=== PATIENT | male | born 1960 | race Caucasian/White ===

== ENCOUNTER → 2016-09-06 | Outpatient (CLI) | payer BC ==
[~2016-09-06] MED LIST: CLR5
--- NOTE | 2016-09-06 10:14 | DIAGNOSTIC IMAGING REPORT ---
RIGHT WRIST 4 VIEWS CLINICAL HISTORY: Right wrist pain. FINDINGS: 4 views of the right wrist are obtained. No prior studies are available for comparison at the time of dictation. The skeletal structures are well mineralized. No fracture is identified. A small bone island is incidentally noted in distal radial metaphysis. Minimal narrowing is present at the radiocarpal articulation. The overlying soft tissues are normal in appearance. IMPRESSION: No acute bony abnormality is seen in the right wrist. Electronically signed by: Carl Atwood M.D. 09/06/2016 10:12 AM Dictated Date/Time: 09/06/2016 10:10 AM
== END | disposition home or self-care (01) ==
LOC: C.RAD1850 09:59
PROVIDERS: ATTEND Family Medicine
DX: M25.539 Pain in unspecified wrist (principal)

== ENCOUNTER → 2017-06-11 | Outpatient (CLI) | payer BC ==
--- NOTE | 2017-06-11 16:07 | DIAGNOSTIC IMAGING REPORT ---
TEMPORAL ORB/SELLA/TEMP W/O CLINICAL HISTORY: UNSPECIFIED CHOLESTEATOMA LEFT EAR, CONDUCT HEAR hearing loss. Prior cholesteatoma. TECHNIQUE: Transaxial acquisition with multi axial reformatted images COMPARISON STUDY: 07/13/2013 FINDINGS: The right middle ear and associated right temporal lobe complex remains unremarkable. The skin is intact. The middle ear ossicles are unremarkable. There is no evidence for bony destructive process. The right mastoid air cells are well aerated. Postoperative changes involving the left middle and left external auditory canals and middle ear compartments are again noted. The ossicles and tympanic membrane/scutum complex appears to have been removed. There is been no change compared to the prior study. Sclerosis of the mastoid air cells is noted. Small residual component of aerated air cells is present posteriorly. There are no new interval or destructive changes. The semicircular canals appear to be intact although again surrounding sclerosis is present. There are moderate degenerative changes of the temporomandibular joints. IMPRESSION: 1. Stable postoperative and sclerotic changes of the left middle and external ear complex as well as left mastoid complex. 2. No evidence for new or interval process on the left. 3. The right middle ear complex and associated temporal bone regions remain unremarkable. 4. No evidence for new interval or progressive process. The above report was generated using voice recognition software. It may contain grammatical, syntax or spelling errors. Electronically signed by: Zach Cabezas M.D. 06/11/2017 4:05 PM Dictated Date/Time: 06/11/2017 4:00 PM
== END | disposition home or self-care (01) ==
LOC: C.CTS 15:42
PROVIDERS: ATTEND Otolaryngology
DX: H90.12 Conductive hearing loss, unilateral, left ear, with unrestricted hearing on the contralateral side (principal); H71.92 Unspecified cholesteatoma, left ear

== ENCOUNTER 2023-02-25 09:36 | Inpatient (IN) ==
[2023-02-25] MEDS ORDERED: ONDANSETRON INJ 2 MG/ML 2 ML VIAL IV STA ×3 (10:00→15:01)
[2023-02-25] MEDS ORDERED: SODIUM CHLORIDE 0.9% 1000ML 1,000 ML IV STA (10:00)
--- NOTE | 2023-02-25 10:09 | Emergency Department Note ---
History of Present Illness General Chief complaint: Illness Stated complaint: NAUSEOUS, SOB Time Seen by Provider: 02/25/23 09:48 Source: patient, family ( was at the bedside), RN notes reviewed and old records reviewed Mode of arrival: ambulatory Limitations: no limitations History of Present Illness This patient is a 62-year-old male who comes in after not feeling well overnight he was he woke up around 330 with head shake he just felt cold and chills he had to black stools that were somewhat hard. He thought he could be dehydrated so he drank a lot of fluids he said that he does have a difficult time eating certain foods as he has had hiatal hernia surgery x2. Saturday he had a bad diet he was not feeling well and took some Pepto and aspirin as well as NSAID. He had no chest pain but felt a little short of breath and clammy no fever he feels better than he did he has just a slight headache. He feels a little bit dizzy and nauseated. His abdomen feels distended but none tender. Home Medications Medication Instructions Recorded Confirmed Type fluticasone propionate 50 2 spray intranasal QAM 06/04/18 02/25/23 History mcg/actuation nasal spray,suspension (Flonase Allergy Relief) loratadine 10 mg capsule 10 mg PO QAM 03/31/19 02/25/23 History ipratropium 0.5 mg-albuterol 3 mg 3 ml inhalation QID PRN Shortness 12/17/1906/10 Rx (2.5 mg base)/3 mL nebulization Of Breath Or Wheezing 90 days #360 soln vials pyridoxine (vitamin B6) 500 mg 0 mg PO HS 01/22/22 02/25/23 History tablet albuterol sulfate 90 mcg/actuation 2 puff inhalation QID PRN Wheezing 02/20/22 02/25/23 Rx aerosol inhaler #18 grams valacyclovir 1 gram tablet 2 mg PO DIRECTED PRN Cold Sores 04/08/22 02/25/23 History epinephrine 0.3 mg/0.3 mL 0.3 mg (0.3 mL) IM Q4H PRN 05/14/22 02/25/23 Rx injection, auto-injector anaphylaxis #2 ea montelukast 10 mg tablet See Rx Instructions .Route 06/11/22 02/25/23 Rx .COMPLEX #90 tabs fluticasone furoate 200 1 inh inhalation QAM #3 Inhalers 08/27/22 02/25/23 Rx mcg-vilanterol 25 mcg/dose inhalation powder (Breo Ellipta) omalizumab 150 mg/mL subcutaneous 150 mg subcut .COMPLEX #1 mL 09/03/22 02/25/23 Rx syringe (Xolair) losartan 50 mg tablet 50 mg PO DAILY #90 tabs 12/31/22 02/25/23 Rx hydrocortisone 2.5 % topical cream 1 applic topical DAILY PRN hemmroid 02/25/23 02/25/23 History vitamin E 268 mg (400 unit) capsule 268 mg PO DAILY 02/25/23 02/25/23 History Allergies Allergy/AdvReac Type Severity Reaction Status Date / Time erythromycin base Allergy Unknown Gastrointestinal Verified 12/24/22 13:43 Upset amoxicillin [From Augmentin] AdvReac Gastrointestinal Unverified 12/24/22 13:43 Upset clavulanic acid AdvReac Gastrointestinal Unverified 12/24/22 13:43 [From Augmentin] Upset Past Med/Surg History Medical History Asthma Chest tightness COVID-19 Injury of right elbow Nonproductive cough Wheezing Surgical History History of appendectomy History of hernia repair History of mastoidectomy History of tonsillectomy Family History Father Stroke Hypertension Lung cancer Mother Allergies Hypertension Hearing loss Social History Smoking Status: Never smoker Preferred Language: Tajik Beliefs That Will Affect Care: Spiritual marital status: Current Living Situation: Spouse Feels Safe at Home: Yes Review of Systems A total of 10 systems reviewed and were otherwise negative Physical Exam Vital Signs Vital Signs - 24 hr 02/25/23 09:39 02/25/23 10:00 02/25/23 10:17 Temperature 36.8 C Temperature Source Temporal Artery Scan Pulse Rate 98 H 80 73 Pulse Rate [Apical] Pulse Rate from SpO2 Sensor Pulse Rhythm Regular Pulse Rhythm [Apical] Pulse Strength Pulse Strength [Apical] Respiratory Rate 22 Respiratory Effort / Characteristics Short of Breath Respiratory Depth Respiratory Pattern Blood Pressure 117/71 Blood Pressure [Right Arm] Blood Pressure Mean 86 Blood Pressure Mean [Right Arm] Blood Pressure Position Blood Pressure Position [Right Arm] Pulse Oximetry 93 100 Oxygen Delivery Method Room Air Room Air Sepsis Recent Fever Within 48 Hours No Sepsis New/Unexplained Change in Mental Status No Sepsis Action Taken by Nursing No Action Required 02/25/23 14:28 02/25/23 11:48 02/25/23 13:00 Temperature 36.4 C L Temperature Source Oral Pulse Rate 72 Pulse Rate [Apical] 87 82 Pulse Rate from SpO2 Sensor Pulse Rhythm Regular Pulse Rhythm [Apical] Regular Regular Pulse Strength Normal Pulse Strength [Apical] Normal Normal Respiratory Rate 11 L 16 15 Respiratory Effort / Characteristics Non-Labored Spontaneous Non-Labored Spontaneous Respiratory Depth Normal Normal Respiratory Pattern Regular Regular Blood Pressure 86/60 L Blood Pressure [Right Arm] 113/81 104/77 Blood Pressure Mean 68 Blood Pressure Mean [Right Arm] 91 86 Blood Pressure Position Lying Blood Pressure Position [Right Arm] Lying Lying Pulse Oximetry 94 98 99 Oxygen Delivery Method Room Air Room Air Sepsis Recent Fever Within 48 Hours Sepsis New/Unexplained Change in Mental Status Sepsis Action Taken by Nursing 02/25/23 13:51 02/25/23 14:49 02/25/23 14:56 Temperature 36.7 C Temperature Source Oral Pulse Rate 92 H 72 75 Pulse Rate [Apical] Pulse Rate from SpO2 Sensor Pulse Rhythm Regular Pulse Rhythm [Apical] Pulse Strength Normal Pulse Strength [Apical] Respiratory Rate 16 13 18 Respiratory Effort / Characteristics Respiratory Depth Respiratory Pattern Blood Pressure 97/70 L 89/54 L 89/57 L Blood Pressure [Right Arm] Blood Pressure Mean 65 67 Blood Pressure Mean [Right Arm] Blood Pressure Position Lying Blood Pressure Position [Right Arm] Pulse Oximetry 96 96 96 Oxygen Delivery Method Room Air Sepsis Recent Fever Within 48 Hours Sepsis New/Unexplained Change in Mental Status Sepsis Action Taken by Nursing 02/25/23 15:04 02/25/23 15:11 02/25/23 14:07 Temperature 36.6 C Temperature Source Oral Pulse Rate 77 80 77 Pulse Rate [Apical] Pulse Rate from SpO2 Sensor 78 Pulse Rhythm Regular Regular Pulse Rhythm [Apical] Pulse Strength Normal Normal Pulse Strength [Apical] Respiratory Rate 16 22 29 H Respiratory Effort / Characteristics Respiratory Depth Respiratory Pattern Blood Pressure 98/59 L 104/54 L 125/72 Blood Pressure [Right Arm] Blood Pressure Mean 72 70 89 Blood Pressure Mean [Right Arm] Blood Pressure Position Lying Blood Pressure Position [Right Arm] Pulse Oximetry 96 93 96 Oxygen Delivery Method Sepsis Recent Fever Within 48 Hours Sepsis New/Unexplained Change in Mental Status Sepsis Action Taken by Nursing 02/25/23 14:13 02/25/23 14:15 02/25/23 14:16 Temperature Temperature Source Pulse Rate 78 77 79 Pulse Rate [Apical] Pulse Rate from SpO2 Sensor 79 77 80 Pulse Rhythm Pulse Rhythm [Apical] Pulse Strength Pulse Strength [Apical] Respiratory Rate 21 18 13 Respiratory Effort / Characteristics Respiratory Depth Respiratory Pattern Blood Pressure 107/71 87/68 L 107/68 Blood Pressure [Right Arm] Blood Pressure Mean 83 74 81 Blood Pressure Mean [Right Arm] Blood Pressure Position Blood Pressure Position [Right Arm] Pulse Oximetry 97 100 96 Oxygen Delivery Method Sepsis Recent Fever Within 48 Hours Sepsis New/Unexplained Change in Mental Status Sepsis Action Taken by Nursing 02/25/23 14:20 02/25/23 14:25 02/25/23 14:26 Temperature Temperature Source Pulse Rate 76 69 70 Pulse Rate [Apical] Pulse Rate from SpO2 Sensor 77 69 69 Pulse Rhythm Pulse Rhythm [Apical] Pulse Strength Pulse Strength [Apical] Respiratory Rate 20 18 12 Respiratory Effort / Characteristics Respiratory Depth Respiratory Pattern Blood Pressure 92/59 L 91/61 L Blood Pressure [Right Arm] Blood Pressure Mean 70 71 Blood Pressure Mean [Right Arm] Blood Pressure Position Blood Pressure Position [Right Arm] Pulse Oximetry 98 97 97 Oxygen Delivery Method Sepsis Recent Fever Within 48 Hours Sepsis New/Unexplained Change in Mental Status Sepsis Action Taken by Nursing 02/25/23 14:27 02/25/23 14:30 02/25/23 14:39 Temperature Temperature Source Pulse Rate 68 74 71 Pulse Rate [Apical] Pulse Rate from SpO2 Sensor 69 73 71 Pulse Rhythm Pulse Rhythm [Apical] Pulse Strength Pulse Strength [Apical] Respiratory Rate 7 L 25 H 20 Respiratory Effort / Characteristics Respiratory Depth Respiratory Pattern Blood Pressure 86/60 L 87/60 L 106/66 Blood Pressure [Right Arm] Blood Pressure Mean 68 69 79 Blood Pressure Mean [Right Arm] Blood Pressure Position Blood Pressure Position [Right Arm] Pulse Oximetry 96 92 100 Oxygen Delivery Method Sepsis Recent Fever Within 48 Hours Sepsis New/Unexplained Change in Mental Status Sepsis Action Taken by Nursing 02/25/23 14:40 02/25/23 14:45 02/25/23 14:49 Temperature Temperature Source Pulse Rate 74 70 75 Pulse Rate [Apical] Pulse Rate from SpO2 Sensor 75 69 74 Pulse Rhythm Pulse Rhythm [Apical] Pulse Strength Pulse Strength [Apical] Respiratory Rate 20 17 19 Respiratory Effort / Characteristics Respiratory Depth Respiratory Pattern Blood Pressure 86/62 L 96/57 L 99/58 L Blood Pressure [Right Arm] Blood Pressure Mean 70 70 71 Blood Pressure Mean [Right Arm] Blood Pressure Position Blood Pressure Position [Right Arm] Pulse Oximetry 99 98 100 Oxygen Delivery Method Sepsis Recent Fever Within 48 Hours Sepsis New/Unexplained Change in Mental Status Sepsis Action Taken by Nursing 02/25/23 14:50 02/25/23 14:55 02/25/23 15:00 Temperature Temperature Source Pulse Rate 76 74 72 Pulse Rate [Apical] Pulse Rate from SpO2 Sensor 76 75 73 Pulse Rhythm Pulse Rhythm [Apical] Pulse Strength Pulse Strength [Apical] Respiratory Rate 13 19 22 Respiratory Effort / Characteristics Respiratory Depth Respiratory Pattern Blood Pressure 89/54 L 89/57 L 89/54 L Blood Pressure [Right Arm] Blood Pressure Mean 65 67 65 Blood Pressure Mean [Right Arm] Blood Pressure Position Blood Pressure Position [Right Arm] Pulse Oximetry 99 99 95 Oxygen Delivery Method Sepsis Recent Fever Within 48 Hours Sepsis New/Unexplained Change in Mental Status Sepsis Action Taken by Nursing 02/25/23 15:05 Temperature Temperature Source Pulse Rate 73 Pulse Rate [Apical] Pulse Rate from SpO2 Sensor 73 Pulse Rhythm Pulse Rhythm [Apical] Pulse Strength Pulse Strength [Apical] Respiratory Rate 14 Respiratory Effort / Characteristics Respiratory Depth Respiratory Pattern Blood Pressure 98/59 L Blood Pressure [Right Arm] Blood Pressure Mean 72 Blood Pressure Mean [Right Arm] Blood Pressure Position Blood Pressure Position [Right Arm] Pulse Oximetry 94 Oxygen Delivery Method Sepsis Recent Fever Within 48 Hours Sepsis New/Unexplained Change in Mental Status Sepsis Action Taken by Nursing General: Well developed well nourished middle-age male who appears mildly uncomfortable in no acute respiratory distress, breathing comfortably on room ai r. Normal speech HEENT: Normal cephalic atraumatic. Pupils are equal round and reactive to light. Extraocular movements are intact. Oropharynx is pink with moist mucous membranes. No swelling of the mouth lips or tongue. Neck: Supple with a midline trachea. No meningeal signs or stiffness, no JVD or bruits. No Stridor. Chest: Clear to auscultation bilaterally. No wheezes or rhonchi. No increased work of breathing. Heart: Regular rate and rhythm without murmurs or gallops. Abdomen: Soft nontender,, he may be somewhat distended he has a large surgical scar from previous surgery. No redness or warmth or significant tenderness. Without rebound guarding or rigidity. Rectal: Scant stool which was guaiac positive Extremities: No cyanosis clubbing or edema. No calf tenderness or assymetry Spine/Back. Non tender to palpation. No CVA tenderness Skin: Good turgor without rashes. Neurologic exam: Cranial nerves two through 12 are intact. Motor and sensation are intact and symmetrical throughout. Course Administered Medications Pantoprazole Sodium 40 mg/ (Dextrose) 100 mls @ 20 mls/hr IV Q5H LANA Stop: 03/27/23 12:44 Last Admin: 02/25/23 14:50 Dose: 8 mg/hr, 20 mls/hr Documented By: DANIEL Discontinued Medications Sodium Chloride (Nss 1000ml) 1,000 mls @ 999 mls/hr IV .Q1H1M STA Stop: 02/25/23 11:00 Last Infusion: 02/25/23 11:12 Dose: 0 mls/hr Documented By: Admin: 02/25/23 10:08 Dose: 999 mls/hr Documented By: RALEIGH Sodium Chloride (Nss 1000ml) 500 mls @ 999 mls/hr IV .Q31M ONE Stop: 02/25/23 12:14 Last Infusion: 02/25/23 13:57 Dose: 0 mls/hr Documented By: Admin: 02/25/23 12:35 Dose: 999 mls/hr Documented By: DANIEL Pantoprazole Sodium 80 mg/ (Dextrose) 120 mls @ 400 mls/hr IV NOW ONE Stop: 02/25/23 12:41 Last Infusion: 02/25/23 13:57 Dose: 0 mls/hr Documented By: Admin: 02/25/23 13:30 Dose: 400 mls/hr Documented By: DANIEL Promethazine HCl 12.5 mg/ (Sodium Chloride) 50.5 mls @ 202 mls/hr IV NOW STA Stop: 02/25/23 14:39 Last Admin: 02/25/23 15:30 Dose: 202 mls/hr Documented By: DANIEL Ioversol (Optiray 320 100ml) 95 ml IV ONCE ONE Stop: 02/25/23 12:03 Last Admin: 02/25/23 11:57 Dose: 95 ml Documented By: RY Ondansetron HCl (Ondansetron Inj 2 Mg/Ml 2 Ml Vial) 4 mg IV NOW STA Stop: 02/25/23 10:01 Last Admin: 02/25/23 10:08 Dose: 4 mg Documented By: RALEIGH Ondansetron HCl (Ondansetron Inj 2 Mg/Ml 2 Ml Vial) Confirm Administered Dose 4 mg .ROUTE .STK-MED ONE Stop: 02/25/23 14:08 Last Admin: 02/25/23 14:50 Dose: Not Given Documented By: DANIEL Ondansetron HCl (Ondansetron Inj 2 Mg/Ml 2 Ml Vial) Confirm Administered Dose 4 mg .ROUTE .STK-MED ONE Stop: 02/25/23 14:16 Last Admin: 02/25/23 14:50 Dose: Not Given Documented By: DANIEL Ondansetron HCl (Ondansetron Inj 2 Mg/Ml 2 Ml Vial) 4 mg IV NOW STA Stop: 02/25/23 14:16 Last Admin: 02/25/23 14:49 Dose: 4 mg Documented By: DANIEL Ondansetron HCl (Ondansetron Inj 2 Mg/Ml 2 Ml Vial) 4 mg IV NOW STA Stop: 02/25/23 15:02 Last Admin: 02/25/23 14:30 Dose: 4 mg Documented By: DANIEL Critical Care Time Critical Care Time: Yes Total Critical Care Time: 45 Due to the patient's GI bleed and episode of hypotension and acute change in status, need for multiple medications through the IV including IV blood transfusions, consultation with the hospitalist and ICU, I have personally spent greater than 45 minutes of critical care time in the direct management of this patient. This includes bedside care, interpretation of diagnostic studies, and testing, discussion with consultants, patient, and family members, and other required patient management activities. This 45 minutes is in excess of all separately billable procedures. Medical Decision Making Differential Diagnosis GI bleed, GI illness, anemia, cardiac disease, infection, bowel obstruction, intra-abdominal process, sepsis, dehydration Medical Records Attestation: I reviewed the patient's medical records. Home Medications Current Medication List: was personally reviewed by me Laboratory Data Attestation: I reviewed the patient's lab results. 02/25/23 11:10 02/25/23 10:14 Lab Results 02/25/23 02/25/23 02/25/23 Range/Units 09:56 09:56 09:56 WBC Cancelled RBC Cancelled Hgb Cancelled Hct Cancelled MCV Cancelled MCH Cancelled MCHC Cancelled RDW Std Deviation Cancelled RDW Coeff of Kassandra Cancelled Plt Count Cancelled MPV Cancelled Immature Gran % (Auto) Cancelled Neut % (Auto) Cancelled Lymph % (Auto) Cancelled [place] % (Auto) Cancelled Eos % (Auto) Cancelled Baso % (Auto) Cancelled Neut # (Auto) Cancelled Lymph # (Auto) Cancelled [place] # (Auto) Cancelled Eos # (Auto) Cancelled Baso # (Auto) Cancelled Immature Gran # (Auto) Cancelled Absolute Nucleated RBC Cancelled Nucleated RBC % (auto) Cancelled Neutrophils % (Manual) Cancelled Band Neutrophils % Cancelled Lymphocytes % (Manual) Cancelled Prolymphocyte % Cancelled Reactive Lymphs % (Man) Cancelled Monocytes % (Manual) Cancelled Eosinophils % (Manual) Cancelled Basophils % (Manual) Cancelled Metamyelocytes % (Man) Cancelled Myelocytes % (Man) Cancelled Promyelocytes % (Man) Cancelled Blast Cells % (Manual) Cancelled Plasma Cell % (Manual) Cancelled Other Cells % Cancelled Nucleated RBC % Cancelled Neutrophils # (Manual) Cancelled Band Neutrophils # Cancelled Total Absolute Neuts Cancelled Lymphocytes # (Manual) Cancelled Prolymphocyte # Cancelled Reactive Lymphs # Cancelled Total Abs Lymphocytes Cancelled Monocytes # (Manual) Cancelled Eosinophils # (Manual) Cancelled Basophils # (Manual) Cancelled Metamyelocytes # (Man) Cancelled Myelocytes # (Manual) Cancelled Promyelocytes # (Man) Cancelled Blast Cells # (Man) Cancelled Plasma Cell # (Manual) Cancelled Other Cells # Cancelled Nucleated RBCs # (Man) Cancelled Hypersegmented Neuts Cancelled Hyposegmented Neuts Cancelled Hypogranular Neuts Cancelled Large Granular Lymphs Cancelled # Lrg Granular Lymphs Cancelled Hairy Cells Cancelled Smudge Cells Cancelled Toxic Granulation Cancelled Toxic Vacuolation Cancelled Dohle Bodies Cancelled [place] Cancelled Platelet Estimate Cancelled Hypogranular Platelets Cancelled Giant Platelets Cancelled Platelet Satelliting Cancelled RBC Morphology Cancelled Polychromasia Cancelled Hypochromasia Cancelled Poikilocytosis Cancelled Basophilic Stippling Cancelled Anisocytosis Cancelled Microcytosis Cancelled Macrocytosis Cancelled Spherocytes Cancelled Pappenheimer Bodies Cancelled Sickle Cells Cancelled Target Cells Cancelled Tear Drop Cells Cancelled Ovalocytes Cancelled Stomatocytes Cancelled [place] Bodies Cancelled Echinocytes Cancelled Acanthocytes (Spur) Cancelled Rouleaux Cancelled RBC Agglutinates Cancelled Schistocytes Cancelled [place] Cell Cancelled PT Cancelled INR Cancelled APTT Cancelled PTT Ratio Cancelled Sodium 133 L (136-145) mmol/L Potassium TNP Chloride 104 (98-107) mmol/L Carbon Dioxide 23 (21-32) mmol/L Anion Gap 6 (3-11) BUN 40 H (6-23) mg/dl Creatinine 0.84 (0.6-1.4) mg/dl Est Cr Clr Drug Dosing Not Reportable Est GFR ( Amer) 107.2 ml/min Est GFR (Non-Af Amer) 92.5 ml/min BUN/Creatinine Ratio 47.6 H (10-20) Glucose 125 H (70-99(Fasting)) mg/dl Calcium 9.1 (8.6-10.3) mg/dl Total Bilirubin 1.2 H (0.2-1.0) mg/dl AST TNP ALT 37 (7-52) U/L Alkaline Phosphatase 47 (34-104) U/L Troponin I High Sens 2.9 (0-20) pg/ml Total Protein 6.6 (6.0-8.3) gm/dl Albumin 4.1 (3.4-5.0) gm/dl Globulin 2.5 (2.5-4.0) gm/dl Albumin/Globulin Ratio 1.6 (0.9-2) Urine Color Urine Appearance (Clear) Urine pH (4.5-7.5) Ur Specific [place] (1.000-1.030) Urine Protein (Negative) Urine Glucose (UA) (Negative) Urine Ketones (Negative) Urine Blood (Negative) Urine Nitrite (Negative) Urine Bilirubin (Negative) Urine Urobilinogen (Negative) Ur Leukocyte Esterase (Negative) SARS-CoV-2, RNA, NAAT (NEGATIVE) Blood Parasites ID Cancelled Blood Type Blood Type Recheck Antibody Screen Crossmatch 02/25/23 02/25/23 02/25/23 Range/Units 10:14 10:14 10:14 WBC RBC Hgb Hct MCV MCH MCHC RDW Std Deviation RDW Coeff of Kassandra Plt Count MPV Immature Gran % (Auto) Neut % (Auto) Lymph % (Auto) [place] % (Auto) Eos % (Auto) Baso % (Auto) Neut # (Auto) Lymph # (Auto) [place] # (Auto) Eos # (Auto) Baso # (Auto) Immature Gran # (Auto) Absolute Nucleated RBC Nucleated RBC % (auto) Neutrophils % (Manual) Band Neutrophils % Lymphocytes % (Manual) Prolymphocyte % Reactive Lymphs % (Man) Monocytes % (Manual) Eosinophils % (Manual) Basophils % (Manual) Metamyelocytes % (Man) Myelocytes % (Man) Promyelocytes % (Man) Blast Cells % (Manual) Plasma Cell % (Manual) Other Cells % Nucleated RBC % Neutrophils # (Manual) Band Neutrophils # Total Absolute Neuts Lymphocytes # (Manual) Prolymphocyte # Reactive Lymphs # Total Abs Lymphocytes Monocytes # (Manual) Eosinophils # (Manual) Basophils # (Manual) Metamyelocytes # (Man) Myelocytes # (Manual) Promyelocytes # (Man) Blast Cells # (Man) Plasma Cell # (Manual) Other Cells # Nucleated RBCs # (Man) Hypersegmented Neuts Hyposegmented Neuts Hypogranular Neuts Large Granular Lymphs # Lrg Granular Lymphs Hairy Cells Smudge Cells Toxic Granulation Toxic Vacuolation Dohle Bodies [place] Platelet Estimate Hypogranular Platelets Giant Platelets Platelet Satelliting RBC Morphology Polychromasia Hypochromasia Poikilocytosis Basophilic Stippling Anisocytosis Microcytosis Macrocytosis Spherocytes Pappenheimer Bodies Sickle Cells Target Cells Tear Drop Cells Ovalocytes Stomatocytes [place] Bodies Echinocytes Acanthocytes (Spur) Rouleaux RBC Agglutinates Schistocytes Sezary Cell PT INR APTT PTT Ratio Sodium (136-145) mmol/L Potassium 4.0 Chloride (98-107) mmol/L Carbon Dioxide (21-32) mmol/L Anion Gap (3-11) BUN (6-23) mg/dl Creatinine (0.6-1.4) mg/dl Est Cr Clr Drug Dosing Est GFR ( Amer) ml/min Est GFR (Non-Af Amer) ml/min BUN/Creatinine Ratio (10-20) Glucose (70-99(Fasting)) mg/dl Calcium (8.6-10.3) mg/dl Total Bilirubin (0.2-1.0) mg/dl AST 22 ALT (7-52) U/L Alkaline Phosphatase (34-104) U/L Troponin I High Sens 2.8 (0-20) pg/ml Total Protein (6.0-8.3) gm/dl Albumin (3.4-5.0) gm/dl Globulin (2.5-4.0) gm/dl Albumin/Globulin Ratio (0.9-2) Urine Color Urine Appearance (Clear) Urine pH (4.5-7.5) Ur Specific [place] (1.000-1.030) Urine Protein (Negative) Urine Glucose (UA) (Negative) Urine Ketones (Negative) Urine Blood (Negative) Urine Nitrite (Negative) Urine Bilirubin (Negative) Urine Urobilinogen (Negative) Ur Leukocyte Esterase (Negative) SARS-CoV-2, RNA, NAAT (NEGATIVE) Blood Parasites ID Blood Type O Positive Blood Type Recheck Antibody Screen NEGATIVE Crossmatch See Detail 02/25/23 02/25/23 02/25/23 Range/Units 11:10 11:10 11:20 WBC 8.59 RBC 3.68 L Hgb 11.6 L Hct 33.6 L MCV 91.3 MCH 31.5 MCHC 34.5 RDW Std Deviation 44.4 RDW Coeff of Kassandra 13.3 Plt Count 193 MPV 10.4 Immature Gran % (Auto) 0.6 Neut % (Auto) 66.9 Lymph % (Auto) 20.5 [place] % (Auto) 11.2 Eos % (Auto) 0.3 Baso % (Auto) 0.5 Neut # (Auto) 5.75 Lymph # (Auto) 1.76 [place] # (Auto) 0.96 H Eos # (Auto) 0.03 Baso # (Auto) 0.04 Immature Gran # (Auto) 0.05 Absolute Nucleated RBC Nucleated RBC % (auto) Neutrophils % (Manual) Band Neutrophils % Lymphocytes % (Manual) Prolymphocyte % Reactive Lymphs % (Man) Monocytes % (Manual) Eosinophils % (Manual) Basophils % (Manual) Metamyelocytes % (Man) Myelocytes % (Man) Promyelocytes % (Man) Blast Cells % (Manual) Plasma Cell % (Manual) Other Cells % Nucleated RBC % Neutrophils # (Manual) Band Neutrophils # Total Absolute Neuts Lymphocytes # (Manual) Prolymphocyte # Reactive Lymphs # Total Abs Lymphocytes Monocytes # (Manual) Eosinophils # (Manual) Basophils # (Manual) Metamyelocytes # (Man) Myelocytes # (Manual) Promyelocytes # (Man) Blast Cells # (Man) Plasma Cell # (Manual) Other Cells # Nucleated RBCs # (Man) Hypersegmented Neuts Hyposegmented Neuts Hypogranular Neuts Large Granular Lymphs # Lrg Granular Lymphs Hairy Cells Smudge Cells Toxic Granulation Toxic Vacuolation Dohle Bodies [place]s Platelet Estimate Hypogranular Platelets Giant Platelets Platelet Satelliting RBC Morphology Polychromasia Hypochromasia Poikilocytosis Basophilic Stippling Anisocytosis Microcytosis Macrocytosis Spherocytes Pappenheimer Bodies Sickle Cells Target Cells Tear Drop Cells Ovalocytes Stomatocytes [place] Bodies Echinocytes Acanthocytes (Spur) Rouleaux RBC Agglutinates Schistocytes Sezary Cell PT 11.4 INR 1.0 APTT 25.4 PTT Ratio 0.9 Sodium (136-145) mmol/L Potassium Chloride (98-107) mmol/L Carbon Dioxide (21-32) mmol/L Anion Gap (3-11) BUN (6-23) mg/dl Creatinine (0.6-1.4) mg/dl Est Cr Clr Drug Dosing Est GFR ( Amer) ml/min Est GFR (Non-Af Amer) ml/min BUN/Creatinine Ratio (10-20) Glucose (70-99(Fasting)) mg/dl Calcium (8.6-10.3) mg/dl Total Bilirubin (0.2-1.0) mg/dl AST ALT (7-52) U/L Alkaline Phosphatase (34-104) U/L Troponin I High Sens (0-20) pg/ml Total Protein (6.0-8.3) gm/dl Albumin (3.4-5.0) gm/dl Globulin (2.5-4.0) gm/dl Albumin/Globulin Ratio (0.9-2) Urine Color Yellow Urine Appearance Clear (Clear) Urine pH 6.5 (4.5-7.5) Ur Specific [place] 1.013 (1.000-1.030) Urine Protein Negative (Negative) Urine Glucose (UA) Negative (Negative) Urine Ketones Trace H (Negative) Urine Blood Negative (Negative) Urine Nitrite Negative (Negative) Urine Bilirubin Negative (Negative) Urine Urobilinogen Negative (Negative) Ur Leukocyte Esterase Negative (Negative) SARS-CoV-2, RNA, NAAT (NEGATIVE) Blood Parasites ID Blood Type Blood Type Recheck Antibody Screen Crossmatch 02/25/23 02/25/23 02/25/23 Range/Units 14:25 14:25 Unknown WBC RBC Hgb 9.1 L Hct 26.7 L MCV MCH MCHC RDW Std Deviation RDW Coeff of Kassandra Plt Count MPV Immature Gran % (Auto) Neut % (Auto) Lymph % (Auto) [place] % (Auto) Eos % (Auto) Baso % (Auto) Neut # (Auto) Lymph # (Auto) [place] # (Auto) Eos # (Auto) Baso # (Auto) Immature Gran # (Auto) Absolute Nucleated RBC Nucleated RBC % (auto) Neutrophils % (Manual) Band Neutrophils % Lymphocytes % (Manual) Prolymphocyte % Reactive Lymphs % (Man) Monocytes % (Manual) Eosinophils % (Manual) Basophils % (Manual) Metamyelocytes % (Man) Myelocytes % (Man) Promyelocytes % (Man) Blast Cells % (Manual) Plasma Cell % (Manual) Other Cells % Nucleated RBC % Neutrophils # (Manual) Band Neutrophils # Total Absolute Neuts Lymphocytes # (Manual) Prolymphocyte # Reactive Lymphs # Total Abs Lymphocytes Monocytes # (Manual) Eosinophils # (Manual) Basophils # (Manual) Metamyelocytes # (Man) Myelocytes # (Manual) Promyelocytes # (Man) Blast Cells # (Man) Plasma Cell # (Manual) Other Cells # Nucleated RBCs # (Man) Hypersegmented Neuts Hyposegmented Neuts Hypogranular Neuts Large Granular Lymphs # Lrg Granular Lymphs Hairy Cells Smudge Cells Toxic Granulation Toxic Vacuolation Dohle Bodies [place]ny Rods Platelet Estimate Hypogranular Platelets Giant Platelets Platelet Satelliting RBC Morphology Polychromasia Hypochromasia Poikilocytosis Basophilic Stippling Anisocytosis Microcytosis Macrocytosis Spherocytes Pappenheimer Bodies Sickle Cells Target Cells Tear Drop Cells Ovalocytes Stomatocytes [place] Bodies Echinocytes Acanthocytes (Spur) Rouleaux RBC Agglutinates Schistocytes [place] Cell PT INR APTT PTT Ratio Sodium (136-145) mmol/L Potassium Chloride (98-107) mmol/L Carbon Dioxide (21-32) mmol/L Anion Gap (3-11) BUN (6-23) mg/dl Creatinine (0.6-1.4) mg/dl Est Cr Clr Drug Dosing Est GFR ( Amer) ml/min Est GFR (Non-Af Amer) ml/min BUN/Creatinine Ratio (10-20) Glucose (70-99(Fasting)) mg/dl Calcium (8.6-10.3) mg/dl Total Bilirubin (0.2-1.0) mg/dl AST ALT (7-52) U/L Alkaline Phosphatase (34-104) U/L Troponin I High Sens (0-20) pg/ml Total Protein (6.0-8.3) gm/dl Albumin (3.4-5.0) gm/dl Globulin (2.5-4.0) gm/dl Albumin/Globulin Ratio (0.9-2) Urine Color Urine Appearance (Clear) Urine pH (4.5-7.5) Ur Specific [place] (1.000-1.030) Urine Protein (Negative) Urine Glucose (UA) (Negative) Urine Ketones (Negative) Urine Blood (Negative) Urine Nitrite (Negative) Urine Bilirubin (Negative) Urine Urobilinogen (Negative) Ur Leukocyte Esterase (Negative) SARS-CoV-2, RNA, NAAT NEGATIVE (NEGATIVE) Blood Parasites ID Blood Type Blood Type Recheck O Positive Antibody Screen Crossmatch Imaging Data Attestation: I personally reviewed and interpreted this imaging study as follows: Radiologist's Impression: Chest X-Ray 02/25/23 09:45 SINGLE VIEW CHEST CLINICAL HISTORY: Atypical chest pain FINDINGS: An AP, portable, upright chest radiograph is compared to study dated 07/31/2022 and correlated with chest CT dated 09/08/2019. The heart is enlarged. The pulmonary vasculature is noncongested. Chronic interstitial thickening similar to previous. There is mild bibasilar scarring/atelectasis. The lungs and pleural spaces are otherwise clear. No pneumothorax is seen. The bony thorax is grossly intact. Surgical clips project over the gastroesophageal junction. IMPRESSION: Mild cardiomegaly with no active disease in the chest. ACT 112: Negative or not required by law. Electronically signed by: Carl Atwood M.D. 02/25/2023 10:50 AM Abdomen/Pelvis CT 02/25/23 11:42 CT SCAN OF THE ABDOMEN AND PELVIS WITH IV CONTRAST CLINICAL HISTORY: Generalized abdominal pain. Nausea and diarrhea. COMPARISON STUDY: Abdominal CT dated 04/08/2022. TECHNIQUE: Following the IV administration of 95 cc of Optiray 320, CT scan of the abdomen and pelvis is performed from the lung bases to the proximal femora. Images are reviewed in the axial, sagittal, and coronal planes. IV contrast was administered without complication. A dose lowering technique was utilized adhering to the principles of ALARA. CT DOSE: 1196.71 mGy.cm FINDINGS: Lung bases: The heart is enlarged and without pericardial effusion. There are coronary artery calcifications. There are scattered calcified granulomas. A 4 mm right lower lobe pulmonary nodule seen on image #36 is unchanged. There is no airspace consolidation or pleural effusion. Scarring/atelectasis is present at the lung bases.. Liver: The contrast-enhanced liver is enlarged, measuring 18.6 cm in length. The liver demonstrates diffusely diminished attenuation indicating steatosis. Fatty sparing is seen adjacent to the gallbladder fossa. There is no intrahepatic biliary ductal dilatation. The hepatic veins and portal veins are patent. Gallbladder: There are several small calcified gallstones with no CT evidence of acute cholecystitis. Spleen: Normal in size and attenuation. Pancreas: Unremarkable. Adrenal glands: Unremarkable. Kidneys: The contrast enhanced kidneys are normal in size and without hydronephrosis. Cortical scarring is again seen in the upper pole of the right kidney. A 9 mm calculus approximates the vesicoureteral junction seen on image #322. This is unchanged in position from 04/08/2022. The upstream ureter is normal in caliber. The kidneys enhance symmetrically. A 2.4 cm cyst is noted in the right kidney. Additional subcentimeter cortical hypodensities also likely represent cysts but are too small for definitive characterization. Abdominal vasculature: The abdominal aorta is normal in course and caliber. Bowel: Stomach and bowel: There is a small hiatal hernia. Fundoplication changes noted. There is mild to moderate colonic diverticulosis without CT evidence of acute diverticulitis. No bowel obstruction is seen. The appendix is not identified and reported surgically absent. Peritoneum: There is no intraperitoneal free air or abdominal ascites. There is a large fat-containing supraumbilical hernia. A fat-containing umbilical hernia is also noted. Lymphadenopathy: None. Pelvic viscera: The prostate gland is enlarged and heterogeneous. The bladder is distended, and the wall is mildly thickened/trabeculated indicating chronic outlet obstruction. There are bilateral fat-containing inguinal hernias. Skeletal structures: No lytic or blastic lesions are seen. There is mild lumbosacral spondylosis. IMPRESSION: 1. No acute infectious or inflammatory findings are identified in the abdomen or pelvis. 2. There is a 9 mm calculus either protruding from the right vesicoureteral junction or within the adjacent bladder lumen. This is unchanged in position fr om the 04/08/2022 examination and there is no upstream hydroureteronephrosis. Clinical correlation will be required. 3. Colonic diverticulosis without CT evidence of acute diverticulitis. 4. Cholelithiasis. 5. Cardiomegaly. 6. Hepatic steatosis. 7. Additional findings as above. ACT 112: Negative or not required by law. Electronically signed by: Carl Atwood M.D. 02/25/2023 12:24 PM ECG Data Attestation: I personally reviewed and interpreted this ECG as follows: Indication: + nausea Rate (beats per minute): 84 Rhythm: + normal sinus ECG Intervals/blocks: + Normal QRS, + Normal QT and + Normal DC ECG [place]: + Normal ECG ST segments: + Normal ST segments ECG Findings: + Q waves (Inferiorly which are unchanged from old); no PACs or no PVCs Comparison ECG Date: from (07/31/22) Change: no significant change MDM Narrative This patient comes in as described above. He does not feel well he feels clammy he has that dark stool although he did take Pepto he took NSAIDs and aspirin so he could have a GI bleed as well his stools have not been loose and his only had 2. IV access was established and he was hydrated with a 1 L IV normal saline bolus and multiple blood testing was obtained also ordered type and screen EKG was obtained obtained which does not show any definite ischemic changes or ectopy he was placed on a environmental monitoring specialist initially sought out in triage to expedite his care while we are waiting for bed. Chest x-ray is also obtained. He was reassessed frequently. I was concerned that his hemoglobin had dropped to 11 from about 16 last year. He looks well and has remained hemodynamically stable and is feeling much better but given the fact that he has guaiac positive stool and a drop in hemoglobin, I do think he should be admitted/observed. I did order Protonix 80 U IV and 8 units/h IV drip. He was initially typed and screened and I did upgrade this to a type and cross him after the hemoglobin had dropped. I consulted the hospitalist and they saw him in the ER. They wrote orders and he was being admitted. The nurse called me and told me to come to the bed immediately and apparently when they were wheeling him to go upstairs, he vomited a large amount of blood and then became pale and minimally responsive. When I saw him he was pale and minimally responsive to put him in bed at no point did he actually have CPR done or definitely lose a pulse, he became more responsive we established additional IVs. I had blood delivered to the ED that I crossed earlier he was given the 2 units were started. I did consent him verbally as well as his consented in the chart. He seems to be doing a lot better we have 2, 18-gauge IV and a 16-gauge that are flowing well. I did consult Dr. Mack as well who promptly came and saw the patient in the ED and he is going to admit him to the ICU and also talk to GI specialist Dr. Byrnes. The patient was given Zofran 4 mg IV and additional Phenergan 12.5 mg IV and this helped the nausea greatly. The patient clinically looks significant better after having blood but still is critically ill and will be going to the ICU. The plan is to continue the blood and have him scoped this afternoon by Dr. Byrnes. Continuous cardiac monitoring: An order was placed in EMR for continuous cardiac monitoring: Upon my evaluation patient is to be in normal sinus rhythm rate of 80 Impression & Plan Acute upper gastrointestinal bleeding, Dark stools, Lightheadedness, Vasovagal episode, Lab test negative for COVID-19 virus, Weakness Discharge Plan Visit Data Chief Complaint: Illness Stated Complaint: NAUSEOUS, SOB ED Provider: Jorge Alberto Ramos Discharge Problem: Acute upper gastrointestinal bleeding, Dark stools, Lightheadedness, Vasovagal episode, Lab test negative for COVID-19 virus, Weakness Discharge Instructions Interventions: ED Discharge Assessment Last Done: 02/25/23 15:15 Forms Stand Alone Forms: My [facility] [employer] Prescriptions Prescriptions: No Action ipratropium-albuterol 0.5 mg-3 mg(2.5 mg base)/3 mL solution for nebulization 3 ml INH QID PRN (Reason: Shortness Of Breath Or Wheezing) 90 Days Qty: 360 0RF epinephrine 0.3 mg/0.3 mL auto-injector 0.3 mg IM Q4H PRN (Reason: anaphylaxis) Qty: 2 1RF losartan 50 mg tablet 50 mg PO DAILY Qty: 90 3RF Breo Ellipta 200-25 mcg/dose blister with device 1 inh INHALATION QAM Qty: 3 3RF Rx Instructions: WITH A RINSE OF MOUTH AFTERWARDS. Xolair 150 mg/mL syringe 150 mg subcut .COMPLEX Qty: 1 11RF Rx Instructions: INJECT 150 mg subcut EVERY 4 WEEKS APPROVED GOOD 08/03/22-09/03/23 [facility] [id number] HL albuterol sulfate 90 mcg/actuation HFA aerosol inhaler 2 puff Inhalation QID PRN (Reason: Wheezing) Qty: 18 5RF loratadine 10 mg capsule 10 mg PO QAM montelukast 10 mg tablet See Rx Instructions .ROUTE .COMPLEX Qty: 90 3RF Dose Instruction: TAKE 1 TABLET DAILY Rx Instructions: TAKE 1 TABLET DAILY fluticasone propionate [Flonase Allergy Relief] 50 mcg/actuation [place],Suspension 2 spray INTRANASAL QAM pyridoxine (vitamin B6) [Vitamin B-6] 500 mg Tablet 0 mg PO HS valacyclovir 1 gram tablet 2 mg PO DIRECTED PRN (Reason: Cold Sores) Rx Instructions: Take 2 tabs at onset & 2 tabs 12 hr later hydrocortisone 2.5 % cream 1 applic TOPICAL DAILY PRN (Reason: hemmroid) vitamin E 268 mg (400 unit) Capsule 268 mg PO DAILY Referrals Referrals: Reilly Yun [Primary Care Provider] -
[2023-02-25 10:46] LABS: Alanine Aminotransferase 37 U/L (7-52); Albumin Globulin Ratio 1.6 (0.9-2); Albumin Level 4.1 gm/dl (3.4-5.0); Alkaline Phosphatase 47 U/L (34-104); Anion Gap 6 (3-11); BUN Creatinine Ratio 47.6 (10-20); Bilirubin,Total 1.2 mg/dl (0.2-1.0); Blood Urea Nitrogen 40 mg/dl (6-23); Calcium 9.1 mg/dl (8.6-10.3); Carbon Dioxide 23 mmol/L (21-32); Chloride 104 mmol/L (98-107); Est GFR (African American) 107.2 ml/min; Est GFR (Non-African American) 92.5 ml/min; Globulin 2.5 gm/dl (2.5-4.0); Glucose 125 mg/dl (70-99(Fasting)); Sodium 133 mmol/L (136-145); Total Protein 6.6 gm/dl (6.0-8.3); Troponin I High Sensitivity 2.9 pg/ml (0-20)
--- NOTE | 2023-02-25 10:51 | XRay Report ---
SINGLE VIEW CHEST CLINICAL HISTORY: Atypical chest pain FINDINGS: An AP, portable, upright chest radiograph is compared to study dated 07/31/2022 and correla galdino with chest CT dated 09/08/2019. The heart is enlarged. The pulmonary vasculature is noncongested. Chronic interstitial thickening similar to previous. There is mild bibasilar scarring/atelectasis. Th e lungs and pleural spaces are otherwise clear. No pneumothorax is seen. The bony thorax is grossly i ntact. Surgical clips project over the gastroesophageal junction. IMPRESSION: Mild cardiomegaly with no active disease in the chest. ACT 112: Negative or not required by law. Electronically signed by: Carl Atwood M.D. 02/25/2023 10:50 AM
[2023-02-25] MEDS ORDERED: SODIUM CHLORIDE 0.9% 1000ML 500 ML IV ONE (11:44)
[2023-02-25 11:56] LABS: Basophils # (auto) 0.04 K/uL (0-0.2); Basophils % (auto) 0.5 %; Eosinophils # (auto) 0.03 K/uL (0-0.50); Eosinophils % (auto) 0.3 %; Hematocrit (blood only) 33.6 % (42.0-52.0); Hemoglobin 11.6 g/dl (14.0-18.0); Immature Granulocytes # (auto) 0.05 K/uL (0.01-0.20); Immature Granulocytes % (auto) 0.6 %; Lymphocytes # (auto) 1.76 K/uL (1.2-3.4); Lymphocytes % (auto) 20.5 %; Mean Corpuscular Hemoglobin 31.5 pg (25.0-34.0); Mean Corpuscular Hgb Conc 34.5 g/dL (32.0-36.0); Mean Corpuscular Volume 91.3 fL (80.0-100.0); Mean Platelet Volume 10.4 fL (9.4-12.4); Monocytes # (auto) 0.96 K/uL (0.11-0.59); Monocytes % (auto) 11.2 %; Neutrophils # (auto) 5.75 K/uL (1.40-6.50); Neutrophils % (auto) 66.9 %; Platelet Count 193 K/uL (130-400); RDW Coefficient of Variation 13.3 % (11.5-14.5); RDW Standard Deviation 44.4 fL (36.4-46.3); Red Blood Count 3.68 M/uL (4.70-6.10); White Blood Count 8.59 K/ul (4.8-10.8)
[2023-02-25] MEDS ORDERED: OPTIRAY 320 100ml IV ONE (12:02)
[2023-02-25 12:06] LABS: Appearance Urine Clear (Clear); Bilirubin Urine Negative (Negative); Blood Urine Negative (Negative); Color Urine Yellow; Glucose Urine UA Negative (Negative); Ketones Urine Trace (Negative); Leukocyte Esterase Urine Negative (Negative); Nitrite Urine Negative (Negative); Protein Urine Negative (Negative); Specific Gravity Urine 1.013 (1.000-1.030); Urobilinogen Urine Negative (Negative); pH Urine 6.5 (4.5-7.5)
[2023-02-25 12:11] LABS: Partial Thromboplastin Ratio 0.9; Partial Thromboplastin Time 25.4 Seconds (21.0-31.0); Prothrombin Time 11.4 Seconds (9.0-12.0)
[2023-02-25] MEDS ORDERED: PANTOPRAZOLE BOLUS/DRIP 1 EACH IV STA (12:24)
[2023-02-25] MEDS ORDERED: PANTOprazole 80 MG in DEXTROSE 5% 100 ML IV ONE (12:24)
--- NOTE | 2023-02-25 12:25 | CT Scan Report ---
CT SCAN OF THE ABDOMEN AND PELVIS WITH IV CONTRAST CLINICAL HISTORY: Generalized abdominal pain. Nausea and diarrhea. COMPARISON STUDY: Abdominal CT dated 04/08/2022. TECHNIQUE: Following the IV administration of 95 cc of Optiray 320, CT scan of the abdomen and pelvi s is performed from the lung bases to the proximal femora. Images are reviewed in the axial, sagittal , and coronal planes. IV contrast was administered without complication. A dose lowering technique wa s utilized adhering to the principles of ALARA. CT DOSE: 1196.71 mGy.cm FINDINGS: Lung bases: The heart is enlarged and without pericardial effusion. There are coronary artery calcifi cations. There are scattered calcified granulomas. A 4 mm right lower lobe pulmonary nodule seen on i mage #36 is unchanged. There is no airspace consolidation or pleural effusion. Scarring/atelectasis i s present at the lung bases.. Liver: The contrast-enhanced liver is enlarged, measuring 18.6 cm in length. The liver demonstrates d iffusely diminished attenuation indicating steatosis. Fatty sparing is seen adjacent to the gallbladd er fossa. There is no intrahepatic biliary ductal dilatation. The hepatic veins and portal veins are patent. Gallbladder: There are several small calcified gallstones with no CT evidence of acute cholecystitis. Spleen: Normal in size and attenuation. Pancreas: Unremarkable. Adrenal glands: Unremarkable. Kidneys: The contrast enhanced kidneys are normal in size and without hydronephrosis. Cortical scarri ng is again seen in the upper pole of the right kidney. A 9 mm calculus approximates the vesicoureter al junction seen on image #322. This is unchanged in position from 04/08/2022. The upstream ureter is normal in caliber. The kidneys enhance symmetrically. A 2.4 cm cyst is noted in the right kidney. Add itional subcentimeter cortical hypodensities also likely represent cysts but are too small for defini tive characterization. Abdominal vasculature: The abdominal aorta is normal in course and caliber. Bowel: Stomach and bowel: There is a small hiatal hernia. Fundoplication changes noted. There is mild to moderate colonic diverticulosis without CT evidence of acute diverticulitis. No bowel obstruction is seen. The appendix is not identified and reported surgically absent. Peritoneum: There is no intraperitoneal free air or abdominal ascites. There is a large fat-containin g supraumbilical hernia. A fat-containing umbilical hernia is also noted. Lymphadenopathy: None. Pelvic viscera: The prostate gland is enlarged and heterogeneous. The bladder is distended, and the w all is mildly thickened/trabeculated indicating chronic outlet obstruction. There are bilateral fat-c ontaining inguinal hernias. Skeletal structures: No lytic or blastic lesions are seen. There is mild lumbosacral spondylosis. IMPRESSION: 1. No acute infectious or inflammatory findings are identified in the abdomen or pelvis. 2. There is a 9 mm calculus either protruding from the right vesicoureteral junction or within the ad jacent bladder lumen. This is unchanged in position from the 04/08/2022 examination and there is no up stream hydroureteronephrosis. Clinical correlation will be required. 3. Colonic diverticulosis without CT evidence of acute diverticulitis. 4. Cholelithiasis. 5. Cardiomegaly. 6. Hepatic steatosis. 7. Additional findings as above. ACT 112: Negative or not required by law. Electronically signed by: Carl Atwood M.D. 02/25/2023 12:24 PM
[2023-02-25] MEDS ORDERED: SODIUM CHLORIDE 0.9% 250 ML IV PRN ×2 (12:34→14:13)
[2023-02-25] MEDS ORDERED: PANTOprazole 40 MG in DEXTROSE 5% 100 ML IV SCH (12:45)
--- NOTE | 2023-02-25 12:54 | History & Physical Report ---
Date of Service February 25, 2023 Assessment & Plan (1) Symptomatic anemia: Plan: -Admit to med/tele -Currently stable -Hgb today noted to be 11, down from 17 in Jul -Patient noted to have multiple black bowel movements over the past 72 hours, has been taking full strength aspirin and alive frequently over the past 2 weeks for chronic back pain -Found to be heme positive in the ED today, BUN is elevated compared to Cr -S/P 1.5L NSS in the ED, will be started on a Protonix drips shortly -Continue protonix drip, will keep NPO except meds until seen by GI -Will start LR while NPO for hydration -GI consult placed -Will repeat CBC at 5 pm, Type/screen obtained in the ED, can hold off on transfusion for now as he is stable -Place 2 large bore IV's, fall precautions -BL SCD's for DVT PPX -AM CBC, CMP, Mag, PT/INR (2) Lightheadedness: Plan: -Likely related to his GI bleed and dehydration -No other cardiac or neurologic symptoms -No focal neuro defects on exam -Fall precautions ordered, monitor for improvement with IV fluids (3) Dark stools: Plan: -See symptomatic anemia (4) Hypertension: Plan: -Stable -Hold losartan for now to prevent hypotension with GI bleed (5) Asthma: Plan: -Stable on RA -Continue home scheduled and prn breathing treatments (6) Right nephrolithiasis: Plan: -Patient noted to have a 9mm calculus either protruding from the right vesicoureteral junction or within the adjacent bladder lumen -No signs of hydronephrosis -Has been unchanged since last CT on 04/08/22 -Patient explains that his chronic back pain is in the right lower back/right flank region and feels like muscle spasms -Will speak with Urology to evaluate the images to see if he needs evaluation inpatient or if he can be seen outpatient Plan The patient was discussed with Dr. Salgado at the time of the admission History of Present Illness Chief Complaint: SOB, headache, neck stiffness, back pain Primary Care Provider: Reilly Gonzalez is a 62 year old male with a PMH significant for asthma, bleeding hemorrhoids, HTN, Pericarditis, and left vertebral artery stenosis who presented to the [facility] ED on 02/25 with multiple complaints including lightheadedness, black stool, neck stiffness/headache, and back pain. In the ED vitals were stable. Labs were significant for a Hgb of 11 (down from 17 as of 07/31/22), BUN of 40 with stable Cr, total bili of 1.2 (down from 2.3 as of 08/09), sodium of 133, covid 19 negative, and heme + stool per the ED staff. Chest xray was read as "Mild cardiomegaly with no active disease in the chest.". CT of the abd/pelvis w/IV con was read as " Prior to admission the patient was given 1500 mL NSS, 4 mg IV zofran, started on a Protonix drip, and type & screened in case transfusion would be needed. At the time of the exam the patient was sitting in bed in no acute distress with his sitting bedside, history was obtained from both. The patient states that he had been in his normal state of health until this past Saturday morning at approximately 0300 when he developed multiple episodes of nausea, diaphoresis, and non-bloody diarrhea. He took 2 doses of pepto-bismol and his symptoms seemed to improve. On 02/23 the patient went golfing and did to eat breakfast. He has been taking multiple doses of full strength aspirin and Alieve over the past 2 weeks for right lower back pain. By the Ed of the day on 02/23 he felt weak, dizzy, and dehydrated, he did have one can of beer while at the golf course. Since Saturday he has had multiple episodes of black, watery diarrhea. This am he had another episode of black diarrhea and was significantly lightheaded, he states he almost passed out this am walking up the steps. He denies recent fever, chills, chest pain, SOB, abd pain, nausea, vomiting, dysuria hematuria, LE swelling, and recent trauma. He denies a previous hx of GI bleeding or ulcers, he is currently being treated for bleeding hemorrhoids with topical steroids. He is a full code and would want his to make medical decisions for him if he could not make them himself. Please refer to Dr. Salgado's attestation for any changes to the treatment plan Allergies Allergy/AdvReac Type Severity Reaction Status Date / Time erythromycin base Allergy Unknown Gastrointestinal Verified 12/24/22 13:43 Upset amoxicillin [From Augmentin] AdvReac Gastrointestinal Unverified 12/24/22 13:43 Upset clavulanic acid AdvReac Gastrointestinal Unverified 12/24/22 13:43 [From Augmentin] Upset Home Medications Medication Instructions Recorded Confirmed Type fluticasone propionate 50 2 spray intranasal QAM 06/04/18 02/25/23 History mcg/actuation nasal spray,suspension (Flonase Allergy Relief) loratadine 10 mg capsule 10 mg PO QAM 03/31/19 02/25/23 History ipratropium 0.5 mg-albuterol 3 mg 3 ml inhalation QID PRN Shortness 12/17/19 02/25/23 Rx (2.5 mg base)/3 mL nebulization Of Breath Or Wheezing 90 days #360 soln vials pyridoxine (vitamin B6) 500 mg 0 mg PO HS 01/22/22 02/25/23 History tablet albuterol sulfate 90 mcg/actuation 2 puff inhalation QID PRN Wheezing 02/20/22 02/25/23 Rx aerosol inhaler #18 grams valacyclovir 1 gram tablet 2 mg PO DIRECTED PRN Cold Sores 04/08/22 02/25/23 History epinephrine 0.3 mg/0.3 mL 0.3 mg (0.3 mL) IM Q4H PRN 05/14/22 02/25/23 Rx injection, auto-injector anaphylaxis #2 ea montelukast 10 mg tablet See Rx Instructions .Route 06/11/22 02/25/23 Rx .COMPLEX #90 tabs fluticasone furoate 200 1 inh inhalation QAM #3 Inhalers 08/27/22 02/25/23 Rx mcg-vilanterol 25 mcg/dose inhalation powder (Breo Ellipta) omalizumab 150 mg/mL subcutaneous 150 mg subcut .COMPLEX #1 mL 09/03/22 02/25/23 Rx syringe (Xolair) losartan 50 mg tablet 50 mg PO DAILY #90 tabs 12/31/22 02/25/23 Rx hydrocortisone 2.5 % topical cream 1 applic topical DAILY PRN hemmroid 02/25/23 02/25/23 History vitamin E 268 mg (400 unit) capsule 268 mg PO DAILY 02/25/23 02/25/23 History Past Med/Surg History Medical History Asthma Chest tightness COVID-19 Injury of right elbow Nonproductive cough Wheezing Surgical History History of appendectomy History of hernia repair History of mastoidectomy History of tonsillectomy Family History Father Stroke Hypertension Lung cancer Mother Allergies Hypertension Hearing loss Social History Smoking Status: Never smoker Hx Alcohol Use: Yes Alcohol type: beer and wine Hx Substance Use: No Preferred Language: Italian Communication Ability: Effective Financial Underwriter Required: No Beliefs That Will Affect Care: None marital status: Current Living Situation: Spouse Feels Safe at Home: Yes Assistive Devices: None Review of Systems Review of Systems: All systems reviewed & are unremarkable except as noted in HPI & below Physical Exam Physical Exam: Physical Exam: General: In no acute distress, stated age, well-nourished, ill but non-toxic appearing HEENT: Normocephalic, atraumatic, no scleral icterus, pupils around round, symmetrical, and reactive to light, dry mucus membranes, trachea midline, no thyromegaly Chest/Pulm: No respiratory distress, symmetrical chest expansion, clear breath sounds throughout Cardiac: RRR, no murmurs noted Abdomen: Negative for ascites and bruising, central scars from previous hernia repairs appear well-healed, normoactive bowel sounds, soft, non-tender to palpation throughout Musculoskeletal: Symmetrical and without signs of acute trauma, upper and lower extremities with full ROM, no atrophy, spasticity, or flaccidity Extremities: Radial, dorsalis pedis, and posterior tibial pulses are intact and symmetrical, no edema noted in the BL LE's Skin: Warm, dry, no rashes , lesions, or scars noted Neuro: Alert and oriented to person, place, month, year, and president, no focal defects, CN II-XII tested and intact, no tremors noted Psych: No acute distress, calm and cooperative during the exam Results & Data Results & Data Vital Signs (Past 12 Hours) Vital Signs Temp Pulse Resp BP Pulse Ox O2 Del Method 02/25/23 10:17 73 02/25/23 10:00 80 100 Room Air 02/25/23 09:39 36.8 C 98 H 22 117/71 93 Room Air Laboratory Results Abnormal lab results 02/25/23 02/25/23 02/25/23 Range/Units 09:56 11:10 11:20 RBC 3.68 L (4.70-6.10) M/uL Hgb 11.6 L (14.0-18.0) g/dl Hct 33.6 L (42.0-52.0) % [place] # (Auto) 0.96 H (0.11-0.59) K/uL Sodium 133 L (136-145) mmol/L BUN 40 H (6-23) mg/dl BUN/Creatinine Ratio 47.6 H (10-20) Glucose 125 H (70-99(Fasting)) mg/dl Total Bilirubin 1.2 H (0.2-1.0) mg/dl Urine Ketones Trace H (Negative) Diagnostic Findings Chest X-Ray 02/25/23 09:45 SINGLE VIEW CHEST CLINICAL HISTORY: Atypical chest pain FINDINGS: An AP, portable, upright chest radiograph is compared to study dated 07/31/2022 and correlated with chest CT dated 09/08/2019. The heart is enlarged. The pulmonary vasculature is noncongested. Chronic interstitial thickening similar to previous. There is mild bibasilar scarring/atelectasis. The lungs and pleural spaces are otherwise clear. No pneumothorax is seen. The bony thorax is grossly intact. Surgical clips project over the gastroesophageal junction. IMPRESSION: Mild cardiomegaly with no active disease in the chest. ACT 112: Negative or not required by law. Electronically signed by: Carl Atwood M.D. 02/25/2023 10:50 AM Abdomen/Pelvis CT 02/25/23 11:42 CT SCAN OF THE ABDOMEN AND PELVIS WITH IV CONTRAST CLINICAL HISTORY: Generalized abdominal pain. Nausea and diarrhea. COMPARISON STUDY: Abdominal CT dated 04/08/2022. TECHNIQUE: Following the IV administration of 95 cc of Optiray 320, CT scan of the abdomen and pelvis is performed from the lung bases to the proximal femora. Images are reviewed in the axial, sagittal, and coronal planes. IV contrast was administered without complication. A dose lowering technique was utilized adhering to the principles of ALARA. CT DOSE: 1196.71 mGy.cm FINDINGS: Lung bases: The heart is enlarged and without pericardial effusion. There are coronary artery calcifications. There are scattered calcified granulomas. A 4 mm right lower lobe pulmonary nodule seen on image #36 is unchanged. There is no airspace consolidation or pleural effusion. Scarring/atelectasis is present at the lung bases.. Liver: The contrast-enhanced liver is enlarged, measuring 18.6 cm in length. The liver demonstrates diffusely diminished attenuation indicating steatosis. Fatty sparing is seen adjacent to the gallbladder fossa. There is no intrahepatic biliary ductal dilatation. The hepatic veins and portal veins are patent. Gallbladder: There are several small calcified gallstones with no CT evidence of acute cholecystitis. Spleen: Normal in size and attenuation. Pancreas: Unremarkable. Adrenal glands: Unremarkable. Kidneys: The contrast enhanced kidneys are normal in size and without hydronephrosis. Cortical scarring is again seen in the upper pole of the right kidney. A 9 mm calculus approximates the vesicoureteral junction seen on image #322. This is unchanged in position from 04/08/2022. The upstream ureter is normal in caliber. The kidneys enhance symmetrically. A 2.4 cm cyst is noted in the right kidney. Additional subcentimeter cortical hypodensities also likely represent cysts but are too small for definitive characterization. Abdominal vasculature: The abdominal aorta is normal in course and caliber. Bowel: Stomach and bowel: There is a small hiatal hernia. Fundoplication changes noted. There is mild to moderate colonic diverticulosis without CT evidence of acute diverticulitis. No bowel obstruction is seen. The appendix is not identified and reported surgically absent. Peritoneum: There is no intraperitoneal free air or abdominal ascites. There is a large fat-containing supraumbilical hernia. A fat-containing umbilical hernia is also noted. Lymphadenopathy: None. Pelvic viscera: The prostate gland is enlarged and heterogeneous. The bladder is distended, and the wall is mildly thickened/trabeculated indicating chronic outlet obstruction. There are bilateral fat-containing inguinal hernias. Skeletal structures: No lytic or blastic lesions are seen. There is mild tim mbosacral spondylosis. IMPRESSION: 1. No acute infectious or inflammatory findings are identified in the abdomen or pelvis. 2. There is a 9 mm calculus either protruding from the right vesicoureteral junction or within the adjacent bladder lumen. This is unchanged in position from the 04/08/2022 examination and there is no upstream hydroureteronephrosis. Clinical correlation will be required. 3. Colonic diverticulosis without CT evidence of acute diverticulitis. 4. Cholelithiasis. 5. Cardiomegaly. 6. Hepatic steatosis. 7. Additional findings as above. ACT 112: Negative or not required by law. Electronically signed by: Carl Atwood M.D. 02/25/2023 12:24 PM ECG Additional Comments: Normal sinus rhythm Inferior infarct , age undetermined Abnormal ECG When compared with ECG of 31-JUL-2022 22:12, Inferior infarct is now Present Code Status & VTE Plan Code Status Full code VTE Prophylaxis Plan VTE Prophylaxis will be ordered: Yes Critical Care Time Critical Care Time: Yes Total Critical Care Time: 35 This is a life threatening event. Supervising Physician Co-Signing Physician Notes During face to face encounter, I obtained a brief physical examination, obtained history of present illness I discussed ] plan of care with HIMA Diaz. I reviewed above note and agree with it except for the following: Patient has an acute upper GI bleed. Discussed with Dr. Byrnes, patient will be admitted to the ICU. Patient will evaluated for an urgent upper endoscopy. will closely monitor his vitals, place on pressors if needed. PG Care Time/CCT Total # of Minutes Spent Total Time Spent with Patient: Total time spent is greater than 50% in coordination of care (as documented) at patient's floor/unit and/or counseling patient: Critical Care Time: Yes Total Critical Care Time: 35 C[place] [address] INT INP/OBS CARE 3/75MIN Patient Type Established Medical Decision Making High Complexity Diagnoses Symptomatic anemia D64.9 Lightheadedness R42 Dark stools R19.5 Hypertension I10 Asthma J45.909 Asthma complication type: unspecified Asthma persistence: unspecified Asthma severity: moderate Right nephrolithiasis N20.0 Additional Codes Critical Care Time - Critical Care Time: Yes ([id number]) (5) Asthma Asthma complication type: unspecified Asthma persistence: unspecified Asthma severity: moderate Qualified Code(s): J45.909 - Unspecified asthma, uncomplicated
[2023-02-25] MEDS ORDERED: LACTATED RINGER'S 1,000 ML IV SCH (13:45)
[2023-02-25] MEDS ORDERED: ONDANSETRON INJ 2 MG/ML 2 ML VIAL ONE ×3 (14:07→16:22)
[2023-02-25] MEDS ORDERED: PROMETHAZINE HCL 12.5 MG in SODIUM CHLORIDE 0.9% 50 ML IV STA (14:25)
--- NOTE | 2023-02-25 14:31 | Communication Note ---
Date of Service: February 25, 2023 [facility] was called in the ED as the patient had an episode of bright red emesis then likely had a vagal episode. On initial evaluation the patient is pal e, hypotensive with BP of 86/60, and lethargic. Significant, bright red blood on the mouth, shirt and bed. STAT ICU and GI consults placed. Spoke with Dr. Mack of the ICU and Dr. Byrnes of the GI team, appreciate their help. The patient will receive a STAT unit of PRBC's. Patient currently has 2 18 gauge peripheral IV's in place, working on placing a 16 gauge line now. GI team confirmed they will see the patient KRYSTYNA for possible emergent EGD.
[2023-02-25 14:50] LABS: Hematocrit (blood only) 26.7 % (42.0-52.0); Hemoglobin 9.1 g/dl (14.0-18.0)
--- NOTE | 2023-02-25 15:14 | Gastrointestinal Consultation ---
Date of Consultation February 25, 2023 Assessment & Plan (1) Acute upper gastrointestinal bleeding: Discussed case with Dr. Byrnes who helped advise on plan. - Will plan to set patient up for EGD to be done today. will need intubated for procedure. - continue with protonix drip - monitor h/h and continue to transfuse as needed. Currently ordered blood products. - I discussed with patient and his about avoidance of nsaids in the future. - further recommendations to follow. Supervising Physician Co-Signing Physician Notes Agree with TONYA Leavitt as above Patient with 1 week of melena, significant NSAID use, lightheadedness, and hematemesis with acute blood loss resulting in hypotension and blood transfusions. Abd: Soft, NT, ND, +BS Proceed with Emergent EGD now due to hemodynamic instability. History of Present Illness Reason for Consultation: large upper GI bleed, hypotension Requesting Physician: Bhanu Diaz PA-C History of Present Illness Patient is a 62 year old male with past medical history of asthma, bleeding hemorrhoids, HTN, Pericarditis, and left vertebral artery stenosis who presented to the [facility] ED on 02/25 with multiple complaints including lightheadedness, black stool, neck stiffness/headache, and back pain. He tells me has been noticing dark stools over the past week with 1-2 bowel movements a day. Over the past week he has been feeling dizzy as well as having nausea and looser stools. He became more lightheaded this morning and decided to come to the ED for evaluation. During his evaluation in the ED today he had an episode of hematemesis once - this is the first time he had ever vomited blood. Patient felt like this was a large amount of blood. Per nursing, he vomited about 1400cc of blood. Patient tells me that he has been having issues with back pain over the past week with being very active and had been using heavy amounts of nsaids. He admits to using 3-4 advil a day and 4 full dose aspirin a day over the past week to deal with his back pain. Spoke with patient and at bedside. hgb on admission was 11.6. He tells me he has followed with [facility] on his GI care in the past. He had recent colonoscopy in October 2022 but I do not have records on this. Patient had an EGD in the past at [facility] when he had hiatal hernia repair 10-12 years ago. I do not have these results. Patient does not that with past colonoscopy that he had aspirated. Allergies Allergy/AdvReac Type Severity Reaction Status Date / Time erythromycin base Allergy Unknown Gastrointestinal Verified 12/24/22 13:43 Upset amoxicillin [From Augmentin] AdvReac Gastrointestinal Unverified 12/24/22 13:43 Upset clavulanic acid AdvReac Gastrointestinal Unverified 12/24/22 13:43 [From Augmentin] Upset Home Medications Medication Instructions Recorded Confirmed Type fluticasone propionate 50 2 spray intranasal QAM 06/04/18 02/25/23 History mcg/actuation nasal spray,suspension (Flonase Allergy Relief) loratadine 10 mg capsule 10 mg PO QAM 03/31/19 02/25/23 History ipratropium 0.5 mg-albuterol 3 mg 3 ml inhalation QID PRN Shortness 12/17/19 02/25/23 Rx (2.5 mg base)/3 mL nebulization Of Breath Or Wheezing 90 days #360 soln vials pyridoxine (vitamin B6) 500 mg 0 mg PO HS 01/22/22 02/25/23 History tablet albuterol sulfate 90 mcg/actuation 2 puff inhalation QID PRN Wheezing 02/20/22 02/25/23 Rx aerosol inhaler #18 grams valacyclovir 1 gram tablet 2 mg PO DIRECTED PRN Cold Sores 04/08/22 02/25/23 History epinephrine 0.3 mg/0.3 mL 0.3 mg (0.3 mL) IM Q4H PRN 05/14/22 02/25/23 Rx injection, auto-injector anaphylaxis #2 ea montelukast 10 mg tablet See Rx Instructions .Route 06/11/22 02/25/23 Rx .COMPLEX #90 tabs fluticasone furoate 200 1 inh inhalation QAM #3 Inhalers 08/27/22 02/25/23 Rx mcg-vilanterol 25 mcg/dose inhalation powder (Breo Ellipta) omalizumab 150 mg/mL subcutaneous 150 mg subcut .COMPLEX #1 mL 09/03/22 02/25/23 Rx syringe (Xolair) losartan 50 mg tablet 50 mg PO DAILY #90 tabs 12/31/22 02/25/23 Rx hydrocortisone 2.5 % topical cream 1 applic topical DAILY PRN hemmroid 02/25/23 02/25/23 History vitamin E 268 mg (400 unit) capsule 268 mg PO DAILY 02/25/23 02/25/23 History Patient History Medical History Asthma Chest tightness COVID-19 Injury of right elbow Nonproductive cough Wheezing Surgical History History of appendectomy History of hernia repair History of mastoidectomy History of tonsillectomy Family History Father Stroke Hypertension Lung cancer Mother Allergies Hypertension Hearing loss Social History Smoking Status: Never smoker Preferred Language: Frisian Beliefs That Will Affect Care: Spiritual marital status: Current Living Situation: Spouse Feels Safe at Home: Yes Review of Systems Review of Systems: All systems reviewed & are unremarkable except as noted in HPI & below Constitutional: + chills, + body aches, + malaise, + weakness and + anorexia Physical Exam Physical Exam: patient shaking during exam today. Respiratory: normal respiratory effort, lungs clear to auscultation Cardiovascular: RRR, no murmur, no edema Gastrointestinal (Abdomen): normal bowel sounds, soft, nontender, no hepatosplenomegaly Psychiatric: Orientation: alert and oriented x 3 Results & Data Vital Signs (Past 12 Hours) Vital Signs Temp Pulse Pulse Resp BP BP Pulse Ox 02/25/23 14:56 98.1 F 75 18 89/57 L 96 02/25/23 14:49 72 13 89/54 L 96 02/25/23 13:51 92 H 16 97/70 L 96 02/25/23 13:00 82 15 104/77 99 02/25/23 11:48 87 16 113/81 98 02/25/23 14:28 97.5 F L 72 11 L 86/60 L 94 02/25/23 10:17 73 02/25/23 10:00 80 100 02/25/23 09:39 98.2 F 98 H 22 117/71 93 O2 Del Method 02/25/23 14:56 02/25/23 14:49 02/25/23 13:51 Room Air 02/25/23 13:00 Room Air 02/25/23 11:48 Room Air 02/25/23 14:28 02/25/23 10:17 02/25/23 10:00 Room Air 02/25/23 09:39 Room Air PG Care Time/CCT Total # of Minutes Spent Total Time Spent with Patient: Total time spent is greater than 50% in coordination of care (as documented) at patient's floor/unit and/or counseling patient: Coding Level of Care Code 38236 OFFICE CONSULT LVL 40M Diagnoses Acute upper gastrointestinal bleeding K92.2 Time Spent (min) 42
[2023-02-25] MEDS ORDERED: fentaNYL citrate PF 100 MCG/2 ML VIAL IV PRN ×2 (15:34→16:00)
[2023-02-25] MEDS ORDERED: ONDANSETRON INJ 2 MG/ML 2 ML VIAL IV PRN ×2 (15:34→16:00)
[2023-02-25] MEDS ORDERED: ATROPINE SULFATE 0.1 MG/ML 10ML SYR IV PRN ×2 (15:34→16:00)
[2023-02-25] MEDS ORDERED: ePHEDrine sulfate 50 MG/ML AMP IV PRN ×2 (15:34→16:00)
--- NOTE | 2023-02-25 15:34 | Anesthesiology Consultation ---
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 Case, DO Height/Weight Height: 5 ft 8 in Weight: 91.4 kg Allergies Allergy/AdvReac Type Severity Reaction Status Date / Time erythromycin base Allergy Unknown Gastrointestinal Verified 12/24/22 13:43 Upset amoxicillin [From Augmentin] AdvReac Gastrointestinal Unverified 12/24/22 13:43 Upset clavulanic acid AdvReac Gastrointestinal Unverified 12/24/22 13:43 [From Augmentin] Upset Medications Home Medications Medication Instructions Recorded Confirmed Last Taken fluticasone propionate 50 2 spray intranasal QAM 06/04/18 02/25/23 02/25/23 mcg/actuation nasal spray,suspension (Flonase Allergy Relief) loratadine 10 mg capsule 10 mg PO QAM 03/31/19 02/25/23 02/24/23 ipratropium 0.5 mg-albuterol 3 mg 3 ml inhalation QID PRN Shortness 12/17/19 02/25/23 6 Months Ago (2.5 mg base)/3 mL nebulization Of Breath Or Wheezing 90 days #360 ~08/28/22 soln vials pyridoxine (vitamin B6) 500 mg 0 mg PO HS 01/22/22 02/25/23 02/24/23 tablet albuterol sulfate 90 mcg/actuation 2 puff inhalation QID PRN Wheezing 02/20/22 02/25/23 02/24/23 aerosol inhaler #18 grams valacyclovir 1 gram tablet 2 mg PO DIRECTED PRN Cold Sores 04/08/22 02/25/23 1 Month Ago ~01/26/23 epinephrine 0.3 mg/0.3 mL 0.3 mg (0.3 mL) IM Q4H PRN 05/14/22 02/25/23 Unknown injection, auto-injector anaphylaxis #2 ea montelukast 10 mg tablet See Rx Instructions .Route 06/11/22 02/25/23 02/24/23 .COMPLEX #90 tabs fluticasone furoate 200 1 inh inhalation QAM #3 Inhalers 08/27/22 02/25/23 02/25/23 mcg-vilanterol 25 mcg/dose inhalation powder (Breo Ellipta) omalizumab 150 mg/mL subcutaneous 150 mg subcut .COMPLEX #1 mL 09/03/22 02/25/23 02/04/23 syringe (Xolair) losartan 50 mg tablet 50 mg PO DAILY #90 tabs 12/31/22 02/25/23 02/24/23 hydrocortisone 2.5 % topical cream 1 applic topical DAILY PRN hemmroid 02/25/23 02/25/23 02/25/23 vitamin E 268 mg (400 unit) capsule 268 mg PO DAILY 02/25/23 02/25/23 02/24/23 Active Medications Generic Name Dose Route Start Last Admin Trade Name Freq PRN Reason Stop Dose Admin Pantoprazole Sodium 40 mg/ 100 mls @ 20 mls/hr 02/25/23 12:45 02/25/23 14:50 Dextrose IV 03/27/23 12:44 8 mg/hr Q5H LANA 20 mls/hr Administration 8 MG/HR Past Medical History Medical History Asthma Chest tightness COVID-19 Injury of right elbow Nonproductive cough Wheezing Past Family History Family History Father Stroke Hypertension Lung cancer Mother Allergies Hypertension Hearing loss Past Surgical History Surgical History History of appendectomy History of hernia repair History of mastoidectomy History of tonsillectomy Social History Smoking Status: Never smoker Physical Exam Vital Signs Last Vital Signs Temp 97.9 F 02/25/23 15:04 Pulse 80 02/25/23 15:11 Resp 22 02/25/23 15:11 BP 104/54 L 02/25/23 15:11 Pulse Ox 93 02/25/23 15:11 O2 Del Method Room Air 02/25/23 13:51 Testing Laboratory Results 02/25/23 14:25 02/25/23 10:14 PT 11.4 Seconds (9.0-12.0) 02/25/23 11:10 INR 1.0 (0.9-1.1) 02/25/23 11:10 APTT 25.4 Seconds (21.0-31.0) 02/25/23 11:10 Urine Color Yellow 02/25/23 11:20 Urine Appearance Clear (Clear) 02/25/23 11:20 Urine pH 6.5 (4.5-7.5) 02/25/23 11:20 Ur Specific [place] 1.013 (1.000-1.030) 02/25/23 11:20 Urine Protein Negative (Negative) 02/25/23 11:20 Urine Glucose (UA) Negative (Negative) 02/25/23 11:20 Urine Ketones Trace (Negative) H 02/25/23 11:20 Urine Nitrite Negative (Negative) 02/25/23 11:20 Ur Leukocyte Esterase Negative (Negative) 02/25/23 11:20 Blood Type O Positive 02/25/23 10:14 Antibody Screen NEGATIVE 02/25/23 10:14 Electrocardiogram Date: 02/25/23 Normal sinus rhythm, rate 84 bpm Inferior infarct , age undetermined Abnormal ECG When compared with ECG of 31-JUL-2022 22:12, Inferior infarct is now Present Chest X-Ray Date: 02/25/23 IMPRESSION: Mild cardiomegaly with no active disease in the chest.
[2023-02-25] MEDS ORDERED: HYDROmorphone INJ 2 MG/ML SYR/VIAL IV PRN (16:00)
[2023-02-25] MEDS ORDERED: LIDOCAINE 2% 2 ML VIAL/AMP(20MG/ML) INFIL ONE (16:15)
[2023-02-25] MEDS ORDERED: SUCCINYLCHOLINE CHLORIDE 20 MG/ML 10 ML VIAL IV ONE (16:15)
[2023-02-25] MEDS ORDERED: PROPOFOL IV EMULSION 10 MG/ML 20 ML VIAL IV ONE (16:15)
--- NOTE | 2023-02-25 16:17 | Urology Consultation ---
Date of Consultation February 25, 2023 Assessment & Plan (1) Calculus of distal right ureter: (2) Bladder stone: Plan 62yo/M admitted to ICU with GI bleed now s/p emergent EGD 02/25. CT abd pelvis on arrival demonstrated a 9mm calculus either protruding from the right vesicoureteral junction or within the adjacent bladder lumen. This is unchanged in position from the 04/08/2022 examination and there is no upstream hydroureteronephrosis. Urology asked to evaluate patient due possible ureteral/bladder stone. He is afebrile and hemodynamically stable. Labs show mild leukocytosis today and normal renal function. Urinalysis on admission without signs of infection or blood. Pt currently has a Villagomez catheter which is draining clear yellow urine. He denies acute flank pain, but does report chronic right lower back pain which comes and goes. CT imaging independently reviewed with Dr. Nuñez. 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 He will eventually need stone treatment, however this can be arranged as an outpatient as he is stable from a standpoint and recovering from other acute issues. Reviewed CT abdomen pelvis findings with patient and discussed recommendation for stone treatment after his acute issues have resolved. He is agreeable. Will arrange outpatient follow-up with our service. Urology will follow peripherally. Please contact us with any further questions, concerns, or changes in patient status. Plan of care and imaging reviewed with Dr. Nuñez. History of Present Illness Attending Physician: Juni Salgado History of Present Illness 62 year old male with a PMH significant for asthma, bleeding hemorrhoids, HTN, Pericarditis, and left vertebral artery stenosis who presented to the [facility] ED on 02/25 with multiple complaints including lightheadedness, black stool, neck stiffness/headache, and back pain and was admitted to ICU with GI bleed. Pt underwent emergent EGD 02/25. Urology asked to evaluate patient due possible ureteral vs bladder stone. CT abdomen pelvis on arrival demonstrated a9 mm calculus either protruding from the right vesicoureteral junction or within the adjacent bladder lumen. This is unchanged in position from the 04/08/2022 examination and there is no upstream hydroureteronephrosis. He was afebrile. Labs on arrival showing no leukocytosis and a normal renal function. Urinalysis without signs of infection or blood. Patient was examined at bedside. Awake, resting in bed on arrival. No acute distress. Patient underwent emergent EGD yesterday. He reports feeling much better today. Currently has a Villagomez catheter intact draining clear yellow urine. He does report chronic right lower back pain that comes and goes but otherwise no c/o pain. Denies fevers, chills, nausea, vomiting. Denies bothersome urinary symptoms or issues at baseline. He denies prior urological history. Has never seen a urologist. Allergies Allergy/AdvReac Type Severity Reaction Status Date / Time erythromycin base Allergy Unknown Gastrointestinal Verified 12/24/22 13:43 Upset amoxicillin [From Augmentin] AdvReac Gastrointestinal Unverified 12/24/22 13:43 Upset clavulanic acid AdvReac Gastrointestinal Unverified 12/24/22 13:43 [From Augmentin] Upset Home Medications Medication Instructions Recorded Confirmed Type fluticasone propionate 50 2 spray intranasal QAM 06/04/18 02/25/23 History mcg/actuation nasal spray,suspension (Flonase Allergy Relief) loratadine 10 mg capsule 10 mg PO QAM 03/31/19 02/25/23 History ipratropium 0.5 mg-albuterol 3 mg 3 ml inhalation QID PRN Shortness 12/17/19 02/25/23 Rx (2.5 mg base)/3 mL nebulization Of Breath Or Wheezing 90 days #360 soln vials pyridoxine (vitamin B6) 500 mg 0 mg PO HS 01/22/22 02/25/23 History tablet albuterol sulfate 90 mcg/actuation 2 puff inhalation QID PRN Wheezing 02/20/22 02/25/23 Rx aerosol inhaler #18 grams valacyclovir 1 gram tablet 2 mg PO DIRECTED PRN Cold Sores 04/08/22 02/25/23 History epinephrine 0.3 mg/0.3 mL 0.3 mg (0.3 mL) IM Q4H PRN 05/14/22 02/25/23 Rx injection, auto-injector anaphylaxis #2 ea montelukast 10 mg tablet See Rx Instructions .Route 06/11/22 02/25/23 Rx .COMPLEX #90 tabs fluticasone furoate 200 1 inh inhalation QAM #3 Inhalers 08/27/22 02/25/23 Rx mcg-vilanterol 25 mcg/dose inhalation powder (Breo Ellipta) omalizumab 150 mg/mL subcutaneous 150 mg subcut .COMPLEX #1 mL 09/03/22 02/25/23 Rx syringe (Xolair) losartan 50 mg tablet 50 mg PO DAILY #90 tabs 12/31/22 02/25/23 Rx hydrocortisone 2.5 % topical cream 1 applic topical DAILY PRN hemmroid 02/25/23 02/25/23 History vitamin E 268 mg (400 unit) capsule 268 mg PO DAILY 02/25/23 02/25/23 History Patient History Medical History Asthma Chest tightness COVID-19 Injury of right elbow Nonproductive cough Wheezing Surgical History History of appendectomy History of hernia repair History of mastoidectomy History of tonsillectomy Family History Father Stroke Hypertension Lung cancer Mother Allergies Hypertension Hearing loss Social History Smoking Status: Never smoker Hx Alcohol Use: Yes Alcohol type: beer and wine Hx Substance Use: No Preferred Language: Croatian Communication Ability: Effective Wick Tender Required: No Beliefs That Will Affect Care: None marital status: Current Living Situation: Spouse Feels Safe at Home: Yes Assistive Devices: None Review of Systems Review of Systems: All systems reviewed & are unremarkable except as noted in HPI & below Physical Exam Constitutional: well developed and well nourished; no acute distress Neck: normal visual inspection Respiratory: normal respiratory effort; no respiratory distress and no labored breathing Musculoskeletal: Head/Neck/Chest: normocephalic Skin: No visible rashes or lesions to exposed skin areas Neurologic: awake Psychiatric: A+Ox3, euthymic affect Genitourinary: Villagomez draining clear yellow urine Results & Data Vital Signs (Past 12 Hours) Vital Signs Temp Pulse Pulse Resp BP BP BP 02/25/23 15:35 36.5 C 100 H 20 116/66 02/25/23 15:05 73 14 98/59 L 02/25/23 15:00 72 22 89/54 L 02/25/23 14:55 74 19 89/57 L 02/25/23 14:50 76 13 89/54 L 02/25/23 14:49 75 19 99/58 L 02/25/23 14:45 70 17 96/57 L 02/25/23 14:40 74 20 86/62 L 02/25/23 14:39 71 20 106/66 02/25/23 14:30 74 25 H 87/60 L 02/25/23 14:27 68 7 L 86/60 L 02/25/23 14:26 70 12 91/61 L 02/25/23 14:25 69 18 92/59 L 02/25/23 14:20 76 20 02/25/23 14:16 79 13 107/68 02/25/23 14:15 77 18 87/68 L 02/25/23 14:13 78 21 107/71 02/25/23 14:07 77 29 H 125/72 02/25/23 15:11 80 22 104/54 L 02/25/23 15:04 36.6 C 77 16 98/59 L 02/25/23 14:56 36.7 C 75 18 89/57 L 02/25/23 14:49 72 13 89/54 L 02/25/23 13:51 92 H 16 97/70 L 02/25/23 13:00 82 15 104/77 02/25/23 11:48 87 16 113/81 02/25/23 14:28 36.4 C L 72 11 L 86/60 L 02/25/23 10:17 73 02/25/23 10:00 80 02/25/23 09:39 36.8 C 98 H 22 117/71 Pulse Ox O2 Del Method 02/25/23 15:35 97 Room Air 02/25/23 15:05 94 02/25/23 15:00 95 02/25/23 14:55 99 02/25/23 14:50 99 02/25/23 14:49 100 02/25/23 14:45 98 02/25/23 14:40 99 02/25/23 14:39 100 02/25/23 14:30 92 02/25/23 14:27 96 02/25/23 14:26 97 02/25/23 14:25 97 02/25/23 14:20 98 02/25/23 14:16 96 02/25/23 14:15 100 02/25/23 14:13 97 02/25/23 14:07 96 02/25/23 15:11 93 02/25/23 15:04 96 02/25/23 14:56 96 02/25/23 14:49 96 02/25/23 13:51 96 Room Air 02/25/23 13:00 99 Room Air 02/25/23 11:48 98 Room Air 02/25/23 14:28 94 02/25/23 10:17 02/25/23 10:00 100 Room Air 02/25/23 09:39 93 Room Air PG Care Time/CCT Total # of Minutes Spent Total Time Spent with Patient: Total time spent is greater than 50% in coordination of care (as documented) at patient's floor/unit and/or counseling patient: Coding Level of Care Code 27126 IN/OBS CONSULT LVL 3,45M Diagnoses Calculus of distal right ureter N20.1 Bladder stone N21.0
[2023-02-25] MEDS ORDERED: SODIUM CHLORIDE 0.9% PF INJ 10 ML VIAL ONE (16:23)
[2023-02-25] MEDS ORDERED: METOCLOPRAMIDE HCL INJ 5 MG/ML 2 ML VIAL ONE (16:23)
[2023-02-25] MEDS ORDERED: ACETAMINOPHEN 325 MG TAB PO PRN (16:31)
[2023-02-25] MEDS ORDERED: HYDROCORTISONE 2.5% CR 30 GM TUBE EXT PRN (16:31)
[2023-02-25] MEDS ORDERED: ALBUT/IPRATROP 3MG/0.5MG NEB 3 ML VIAL INH PRN (16:31)
[2023-02-25] MEDS ORDERED: ALBUTEROL HFA 8 GM INHALER INH PRN (16:31)
[2023-02-25] MEDS ORDERED: fentaNYL citrate PF 100 MCG/2 ML VIAL ONE ×2 (16:32→17:21)
--- NOTE | 2023-02-25 17:41 | Critical Care Consultation ---
Date of Consultation February 25, 2023 Assessment & Plan (1) Acute upper gastrointestinal bleeding: Reason Critically Ill: 62-year-old male with acute gastrointestinal hemorrhage PLAN: Neuro: Near syncope -Likely secondary to symptomatic anemia Resp: Seasonal allergies and allergic rhinitis Asthma -Albuterol MDI as needed CV: Hypertension -Losartan 50 mg daily Fluids/Renal: Right-sided nephrolithiasis: No hydroureter -Urology consulted, consult reviewed -Follow-up as outpatient with urology GI/Nutrition: Acute gastrointestinal hemorrhage -Likely a Cora-Cage tear: Successful therapeutic intervention -If rebleeds would necessitate transfer to tertiary care with angiography -Transition to Protonix 80 mg twice daily Heme: Symptomatic anemia -Secondary to Cora-Cage tear DVT prophylaxis: SCDs, chemoprophylaxis contraindicated at this time Endocrine: ICU hyperglycemia protocol Vascular access: Peripheral IVs Code Status: Full code Disposition: ICU (2) Right nephrolithiasis: (3) Calculus of distal right ureter: (4) Symptomatic anemia: (5) Cora-Cage tear: History of Present Illness Reason for Consultation: Concern for acute gastrointestinal hemorrhage Attending Physician: Juni Salgado History of Present Illness Patient is a 62-year-old male with a significant past medical history of asthma, hemorrhoids, hypertension, pericarditis, left vertebral artery stenosis, past surgical history to include what is described as a Justin fundoplication: Patient reports he had a stomach folded over and repair of a hiatal hernia as well as subsequent repair of intra-abdominal hernias via laparotomy. He presented to the ED with multiple complaints and was found to have concern for gastrointestinal bleeding as he was passing black stools, he also reported he had been taking Pepto-Bismol. Patient was about to be admitted to a regular medicine bed at which she had an episode of hematemesis and near syncope. There was concern for acute GI bleeding and I was consulted for further evaluation and management. Patient had been typed and screened in the emergency department and 2 units of packed red blood cells were ordered. During my evaluation the patient reported he felt better than the initial near syncopal event, he was without chest pain he was slightly short of breath and somewhat nauseous which had been improving. He has no history of prior ulcer, denies smoking, light social alcohol use: No daily consumption, no history of withdrawals, no illicit substance use. While in the emergency department he had 2 18-gauge IVs and a 16-gauge was placed. He was admitted to the ICU and seen urgently by GI and underwent an EGD. I discussed the EGD findings, it appeared to relate to a Cora-Cage tear and there was a successful therapeutic procedure. If the patient were to rebleed given his abnormal anatomy and difficulty entering the stomach as well as prior laparotomy procedures patient would benefit from transfer to a facility that is able to undergo radiographic angiography. Allergies Allergy/AdvReac Type Severity Reaction Status Date / Time erythromycin base Allergy Unknown Gastrointestinal Verified 12/24/22 13:43 Upset amoxicillin [From Augmentin] AdvReac Gastrointestinal Unverified 12/24/22 13:43 Upset clavulanic acid AdvReac Gastrointestinal Unverified 12/24/22 13:43 [From Augmentin] Upset Home Medications Medication Instructions Recorded Confirmed Type fluticasone propionate 50 2 spray intranasal QAM 06/04/18 02/25/23 History mcg/actuation nasal spray,suspension (Flonase Allergy Relief) loratadine 10 mg capsule 10 mg PO QAM 03/31/19 02/25/23 History ipratropium 0.5 mg-albuterol 3 mg 3 ml inhalation QID PRN Shortness 12/17/19 02/25/23 Rx (2.5 mg base)/3 mL nebulization Of Breath Or Wheezing 90 days #360 soln vials pyridoxine (vitamin B6) 500 mg 0 mg PO HS 01/22/22 02/25/23 History tablet albuterol sulfate 90 mcg/actuation 2 puff inhalation QID PRN Wheezing 02/20/22 02/25/23 Rx aerosol inhaler #18 grams valacyclovir 1 gram tablet 2 mg PO DIRECTED PRN Cold Sores 04/08/22 02/25/23 History epinephrine 0.3 mg/0.3 mL 0.3 mg (0.3 mL) IM Q4H PRN 05/14/22 02/25/23 Rx injection, auto-injector anaphylaxis #2 ea montelukast 10 mg tablet See Rx Instructions .Route 06/11/22 02/25/23 Rx .COMPLEX #90 tabs fluticasone furoate 200 1 inh inhalation QAM #3 Inhalers 08/27/22 02/25/23 Rx mcg-vilanterol 25 mcg/dose inhalation powder (Breo Ellipta) omalizumab 150 mg/mL subcutaneous 150 mg subcut .COMPLEX #1 mL 09/03/22 02/25/23 Rx syringe (Xolair) losartan 50 mg tablet 50 mg PO DAILY #90 tabs 12/31/22 02/25/23 Rx hydrocortisone 2.5 % topical cream 1 applic topical DAILY PRN hemmroid 02/25/23 02/25/23 History vitamin E 268 mg (400 unit) capsule 268 mg PO DAILY 02/25/23 02/25/23 History Patient History Medical History Asthma Chest tightness COVID-19 Injury of right elbow Nonproductive cough Wheezing Surgical History History of appendectomy History of hernia repair History of mastoidectomy History of tonsillectomy Family History Father Stroke Hypertension Lung cancer Mother Allergies Hypertension Hearing loss Social History Smoking Status: Never smoker Hx Alcohol Use: Yes Alcohol type: beer and wine Hx Substance Use: No Preferred Language: Colombian Communication Ability: Effective 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 nontoxic. Skin: Warm, dry, pale Head: Atraumatic Ears, nose, mouth and throat: airway patent Cardiovascular: Normal peripheral perfusion Respiratory: no respiratory distress Gastrointestinal: Non distended, well-healed laparotomy scar Musculoskeletal: No deformity Results & Data Results & Data Vital Signs (Past 12 Hours) Vital Signs Temp Pulse Pulse Resp BP BP BP 02/25/23 16:31 95 H 02/25/23 15:35 36.5 C 100 H 20 116/66 02/25/23 15:05 73 14 98/59 L 02/25/23 15:00 72 22 89/54 L 02/25/23 14:55 74 19 89/57 L 02/25/23 14:50 76 13 89/54 L 02/25/23 14:49 75 19 99/58 L 02/25/23 14:45 70 17 96/57 L 02/25/23 14:40 74 20 86/62 L 02/25/23 14:39 71 20 106/66 02/25/23 14:30 74 25 H 87/60 L 02/25/23 14:27 68 7 L 86/60 L 02/25/23 14:26 70 12 91/61 L 02/25/23 14:25 69 18 92/59 L 02/25/23 14:20 76 20 02/25/23 14:16 79 13 107/68 02/25/23 14:15 77 18 87/68 L 02/25/23 14:13 78 21 107/71 02/25/23 14:07 77 29 H 125/72 02/25/23 15:11 80 22 104/54 L 02/25/23 15:04 36.6 C 77 16 98/59 L 02/25/23 14:56 36.7 C 75 18 89/57 L 02/25/23 14:49 72 13 89/54 L 02/25/23 13:51 92 H 16 97/70 L 02/25/23 13:00 82 15 104/77 02/25/23 11:48 87 16 113/81 02/25/23 14:28 36.4 C L 72 11 L 86/60 L 02/25/23 10:17 73 02/25/23 10:00 80 02/25/23 09:39 36.8 C 98 H 22 117/71 Pulse Ox O2 Del Method 02/25/23 16:31 02/25/23 15:35 97 Room Air 02/25/23 15:05 94 02/25/23 15:00 95 02/25/23 14:55 99 02/25/23 14:50 99 02/25/23 14:49 100 02/25/23 14:45 98 02/25/23 14:40 99 02/25/23 14:39 100 02/25/23 14:30 92 02/25/23 14:27 96 02/25/23 14:26 97 02/25/23 14:25 97 02/25/23 14:20 98 02/25/23 14:16 96 02/25/23 14:15 100 02/25/23 14:13 97 02/25/23 14:07 96 02/25/23 15:11 93 02/25/23 15:04 96 02/25/23 14:56 96 02/25/23 14:49 96 02/25/23 13:51 96 Room Air 02/25/23 13:00 99 Room Air 02/25/23 11:48 98 Room Air 02/25/23 14:28 94 02/25/23 10:17 02/25/23 10:00 100 Room Air 02/25/23 09:39 93 Room Air Critical Care Results & Data Vital Signs (Past 12 Hours) Vital Signs Temp Pulse Pulse Resp BP BP BP 02/25/23 16:31 95 H 02/25/23 15:35 36.5 C 100 H 20 116/66 02/25/23 15:05 73 14 98/59 L 02/25/23 15:00 72 22 89/54 L 02/25/23 14:55 74 19 89/57 L 02/25/23 14:50 76 13 89/54 L 02/25/23 14:49 75 19 99/58 L 02/25/23 14:45 70 17 96/57 L 02/25/23 14:40 74 20 86/62 L 02/25/23 14:39 71 20 106/66 02/25/23 14:30 74 25 H 87/60 L 02/25/23 14:27 68 7 L 86/60 L 02/25/23 14:26 70 12 91/61 L 02/25/23 14:25 69 18 92/59 L 02/25/23 14:20 76 20 02/25/23 14:16 79 13 107/68 02/25/23 14:15 77 18 87/68 L 02/25/23 14:13 78 21 107/71 02/25/23 14:07 77 29 H 125/72 02/25/23 15:11 80 22 104/54 L 02/25/23 15:04 36.6 C 77 16 98/59 L 02/25/23 14:56 36.7 C 75 18 89/57 L 02/25/23 14:49 72 13 89/54 L 02/25/23 13:51 92 H 16 97/70 L 02/25/23 13:00 82 15 104/77 07/10/23 11:48 87 16 113/81 02/25/23 14:28 36.4 C L 72 11 L 86/60 L 02/25/23 10:17 73 02/25/23 10:00 80 02/25/23 09:39 36.8 C 98 H 22 117/71 Pulse Ox O2 Del Method 02/25/23 16:31 02/25/23 15:35 97 Room Air 02/25/23 15:05 94 02/25/23 15:00 95 02/25/23 14:55 99 02/25/23 14:50 99 02/25/23 14:49 100 02/25/23 14:45 98 02/25/23 14:40 99 02/25/23 14:39 100 02/25/23 14:30 92 02/25/23 14:27 96 02/25/23 14:26 97 02/25/23 14:25 97 02/25/23 14:20 98 02/25/23 14:16 96 02/25/23 14:15 100 02/25/23 14:13 97 02/25/23 14:07 96 02/25/23 15:11 93 02/25/23 15:04 96 02/25/23 14:56 96 02/25/23 14:49 96 02/25/23 13:51 96 Room Air 02/25/23 13:00 99 Room Air 02/25/23 11:48 98 Room Air 02/25/23 14:28 94 02/25/23 10:17 02/25/23 10:00 100 Room Air 02/25/23 09:39 93 Room Air Lab & Micro Results (Past 24 Hours) RBC 3.68 M/uL (4.70-6.10) L 02/25/23 WBC 8.59 K/ul (4.8-10.8) 02/25/23 Hgb 9.1 g/dl (14.0-18.0) L 02/25/23 Hct 26.7 % (42.0-52.0) L 02/25/23 MCV 91.3 fL (80.0-100.0) 02/25/23 MCH 31.5 pg (25.0-34.0) 02/25/23 MCHC 34.5 g/dL (32.0-36.0) 02/25/23 RDW Standard Deviation 44.4 fL (36.4-46.3) 02/25/23 RDW Coefficient of Variation 13.3 % (11.5-14.5) 02/25/23 Plt Count 193 K/uL (130-400) 02/25/23 MPV 10.4 fL (9.4-12.4) 02/25/23 Neutrophils (%) (Auto) 66.9 % 02/25/23 Lymphocytes (%) (Auto) 20.5 % 02/25/23 Monocytes # (Auto) 0.96 K/uL (0.11-0.59) H 02/25/23 Eosinophils # (Auto) 0.03 K/uL (0-0.50) 02/25/23 Immature Granulocyte % (Auto) 0.6 % 02/25/23 Neutrophils # (Auto) 5.75 K/uL (1.40-6.50) 02/25/23 Lymphocytes # (Auto) 1.76 K/uL (1.2-3.4) 02/25/23 Monocytes # (Auto) 0.96 K/uL (0.11-0.59) H 02/25/23 Eosinophils # (Auto) 0.03 K/uL (0-0.50) 02/25/23 Basophils # (Auto) 0.04 K/uL (0-0.2) 02/25/23 Immature Granulocyte # (Auto) 0.05 K/uL (0.01-0.20) 3 Na 133 mmol/L (136-145) L 02/25/23 K 4.0 mmol/L (3.5-5.1) 02/25/23 Cl 104 mmol/L (98-107) 02/25/23 CO2 23 mmol/L (21-32) 02/25/23 Anion Gap 6 (3-11) 02/25/23 BUN 40 mg/dl (6-23) H 02/25/23 Creatinine 0.84 mg/dl (0.6-1.4) 02/25/23 Estimated GFR ( Amer) 107.2 ml/min 02/25/23 Estimated GFR (Non-Af Amer) 92.5 ml/min 02/25/23 BUN/Creatinine Ratio 47.6 (10-20) H 02/25/23 Glu 125 mg/dl (70-99(Fasting)) H 02/25/23 Ca 9.1 mg/dl (8.6-10.3) 02/25/23 Total Bilirubin 1.2 mg/dl (0.2-1.0) H 02/25/23 AST 22 U/L (13-39) 02/25/23 ALT 37 U/L (7-52) 02/25/23 Alkaline Phosphatase 47 U/L (34-104) 02/25/23 TP 6.6 gm/dl (6.0-8.3) 02/25/23 Albumin 4.1 gm/dl (3.4-5.0) 02/25/23 Globulin 2.5 gm/dl (2.5-4.0) 02/25/23 Albumin/Globulin Ratio 1.6 (0.9-2) 02/25/23 Calcium Level 9.1 mg/dl (8.6-10.3) 02/25/23 09:56 Prothromb Time International Ratio 1.0 (0.9-1.1) 02/25/23 11:1 0 Diagnostic Findings (Past 24 Hours) Chest X-Ray 02/25/23 09:45 SINGLE VIEW CHEST CLINICAL HISTORY: Atypical chest pain FINDINGS: An AP, portable, upright chest radiograph is compared to study dated 07/31/2022 and correlated with chest CT dated 09/08/2019. The heart is enlarged. The pulmonary vasculature is noncongested. Chronic interstitial thickening similar to previous. There is mild bibasilar scarring/atelectasis. The lungs and pleural spaces are otherwise clear. No pneumothorax is seen. The bony thorax is grossly intact. Surgical clips project over the gastroesophageal junction. IMPRESSION: Mild cardiomegaly with no active disease in the chest. ACT 112: Negative or not required by law. Electronically signed by: Carl Atwood M.D. 02/25/2023 10:50 AM Abdomen/Pelvis CT 02/25/23 11:42 CT SCAN OF THE ABDOMEN AND PELVIS WITH IV CONTRAST CLINICAL HISTORY: Generalized abdominal pain. Nausea and diarrhea. COMPARISON STUDY: Abdominal CT dated 04/08/2022. TECHNIQUE: Following the IV administration of 95 cc of Optiray 320, CT scan of the abdomen and pelvis is performed from the lung bases to the proximal femora. Images are reviewed in the axial, sagittal, and coronal planes. IV contrast was administered without complication. A dose lowering technique was utilized adhering to the principles of ALARA. CT DOSE: 1196.71 mGy.cm FINDINGS: Lung bases: The heart is enlarged and without pericardial effusion. There are coronary artery calcifications. There are scattered calcified granulomas. A 4 mm right lower lobe pulmonary nodule seen on image #36 is unchanged. There is no airspace consolidation or pleural effusion. Scarring/atelectasis is present at the lung bases.. Liver: The contrast-enhanced liver is enlarged, measuring 18.6 cm in length. The liver demonstrates diffusely diminished attenuation indicating steatosis. Fatty sparing is seen adjacent to the gallbladder fossa. There is no intrahepatic biliary ductal dilatation. The hepatic veins and portal veins are patent. Gallbladder: There are several small calcified gallstones with no CT evidence of acute cholecystitis. Spleen: Normal in size and attenuation. Pancreas: Unremarkable. Adrenal glands: Unremarkable. Kidneys: The contrast enhanced kidneys are normal in size and without hydronephrosis. Cortical scarring is again seen in the upper pole of the right kidney. A 9 mm calculus approximates the vesicoureteral junction seen on image #322. This is unchanged in position from 04/08/2022. The upstream ureter is normal in caliber. The kidneys enhance symmetrically. A 2.4 cm cyst is noted in the right kidney. Additional subcentimeter cortical hypodensities also likely represent cysts but are too small for definitive characterization. Abdominal vasculature: The abdominal aorta is normal in course and caliber. Bowel: Stomach and bowel: There is a small hiatal hernia. Fundoplication changes noted. There is mild to moderate colonic diverticulosis without CT evidence of acute diverticulitis. No bowel obstruction is seen. The appendix is not identified and reported surgically absent. Peritoneum: There is no intraperitoneal free air or abdominal ascites. There is a large fat-containing supraumbilical hernia. A fat-containing umbilical hernia is also noted. Lymphadenopathy: None. Pelvic viscera: The prostate gland is enlarged and heterogeneous. The bladder is distended, and the wall is mildly thickened/trabeculated indicating chronic outlet obstruction. There are bilateral fat-containing inguinal hernias. Skeletal structures: No lytic or blastic lesions are seen. There is mild lumbosacral spondylosis. IMPRESSION: 1. No acute infectious or inflammatory findings are identified in the abdomen or pelvis. 2. There is a 9 mm calculus either protruding from the right vesicoureteral junction or within the adjacent bladder lumen. This is unchanged in position from the 04/08/2022 examination and there is no upstream hydroureteronephrosis. Clinical correlation will be required. 3. Colonic diverticulosis without CT evidence of acute diverticulitis. 4. Cholelithiasis. 5. Cardiomegaly. 6. Hepatic steatosis. 7. Additional findings as above. ACT 112: Negative or not required by law. Electronically signed by: Carl Atwood M.D. 02/25/2023 12:24 PM I & O Totals 24 Hours 02/24/23 02/25/23 02/26/23 06:59 06:59 06:59 Intake Total 1620 / 1620 Balance 1620 / 1620 Cumulative 02/25/23 09:36 thru 02/25/23 16:11 Intake Total 1620 Balance 1620 RT Ventilator Mngmt (Last Documented) Ventilator Ordered Settings Respiratory Rate 20 02/25/23 15:35 Ventilator - PT Measurements Respiratory Rate 20 Coding Level of Care Code 44854 CRITICAL CARE 1ST 30-74M Diagnoses Acute upper gastrointestinal bleeding K92.2 Right nephrolithiasis N20.0 Calculus of distal right ureter N20.1 Symptomatic anemia D64.9 Cora-Cage tear K22.6 Time Spent (min) 55
--- NOTE | 2023-02-25 17:48 | GI REPORT ---
Patient Name: Carlos Ham Procedure Date: 02/25/2023 3:48 PM Date of : 1960 Admit Type: Emergency Department Age: 62 Gender: Male Attending MD: Gabriel Byrnes DO, Procedure: Upper GI endoscopy Providers: Gabriel Byrnes DO Referring MD: Jorge Alberto Ramos Indications: Acute post hemorrhagic anemia Medicines: Monitored Anesthesia Care Complications: No immediate complications. Estimated Blood Loss: Estimated blood loss: none. Procedure: Pre-Anesthesia Assessment: - Prior to the procedure, a History and Physical was performed, and patient medications and allergies were reviewed. The patient's tolerance of previous anesthesia was also reviewed. The risks and benefits of the procedure and the sedation options and risks were discussed with the patient. All questions were answered, and informed consent was obtained. Prior Anticoagulants: The patient has taken no anticoagulant or antiplatelet agents except for aspirin. ASA Grade Assessment: E - Emergency. After reviewing the risks and benefits, the patient was deemed in satisfactory condition to undergo the procedure. After obtaining informed consent, the endoscope was passed under direct vision. Throughout the procedure, the patient's blood pressure, pulse, and oxygen saturations were monitored continuously. The Endoscope was introduced through the mouth, and advanced to the third part of duodenum. The upper GI endoscopy was performed with difficulty due to post-surgical anatomy and poor endoscopic visualization. The patient tolerated the procedure well. Findings: The esophagus was normal. Hematin (altered blood/bbwhkz-kdjqss-ocll material) was found at the gastroesophageal junction. A 8 mm non-bleeding Cora-Cage tear with stigmata of recent bleeding was found. Area was successfully injected with 5 mL of a 0.1 mg/mL solution of epinephrine for hemostasis. For hemostasis, two hemostatic clips were successfully placed (MR conditional). Clip simulation engineer: [facility]. There was no bleeding at the end of the procedure. The examined duodenum was normal. Impression: - Normal esophagus. - Hematin (altered blood/ocodfz-mikfpt-zskz material) in the gastroesophageal junction. - Cora-Cage tear. Injected. Clips (MR conditional) were placed. Clip simulation engineer: [facility]. - Normal examined duodenum. - No specimens collected. Recommendation: - Return patient to ICU for ongoing care. - NPO. - Use Protonix (pantoprazole) 40 mg IV BID. - If patient rebleeds, recommend transfer to tertiary care center with IR capabilities. - Discussed case with Dr. Mack, Central Office Worker. Gabriel Price Case, DO 02/25/2023 5:48:34 PM This report has been signed electronically. Note Initiated On: 02/25/2023 3:48 PM Number of Addenda: 0 I attest to the content of the Intraoperative Record and orders documented therein, exceptions below {[id number]}
[2023-02-25] MEDS: MONTELUKAST SODIUM 10 MG TABLET PO SCH ×2 (18:04→18:17)
--- NOTE | 2023-02-25 18:15 | Electrocardiogram Report ---
Test Reason : Blood Pressure : / mmHG Vent. Rate : 084 BPM Atrial Rate : 084 BPM P-R Int : 154 ms QRS Dur : 084 ms QT Int : 354 ms P-R-T Axes : 004 015 -11 degrees QTc Int : 418 ms Normal sinus rhythm possible Inferior infarct , age undetermined Abnormal ECG When compared with ECG of 31-JUL-2022 22:12, Inferior infarct is now Present Confirmed by Jay Gayle ([id number]) on 02/25/2023 6:15:30 PM Referred By: REFERRED SELF Confirmed By:Bill Gayle
[2023-02-25] MEDS: ICU Protocol for HYPERglycemia SCH ×2 (18:17→23:38)
--- NOTE | 2023-02-25 18:38 | Anesthesiology Progress Note ---
Date of Service February 25, 2023 Anesthesia Post Procedure Vital Signs Vital Signs: Temp Pulse Pulse Resp BP BP BP 02/25/23 18:30 98.1 F 90 16 02/25/23 18:30 132/82 02/25/23 18:25 98.1 F 87 17 02/25/23 18:25 151/80 H 02/25/23 18:20 97.9 F 90 20 02/25/23 18:20 149/89 H 02/25/23 18:15 97.9 F 90 17 02/25/23 18:15 150/93 H 02/25/23 18:10 97.7 F 89 17 02/25/23 18:10 163/88 H 02/25/23 18:05 169/97 H 02/25/23 18:05 97.7 F 97 H 20 02/25/23 18:00 97.5 F L 85 18 02/25/23 18:00 167/89 H 02/25/23 17:55 97.3 F L 85 19 02/25/23 17:55 161/91 H 02/25/23 17:53 165/87 H 02/25/23 17:53 97.5 F L 83 16 02/25/23 17:52 97.3 F L 91 H 18 02/25/23 17:52 158/86 H 02/25/23 17:51 97.5 F L 86 16 02/25/23 17:51 152/95 H 02/25/23 17:50 97.3 F L 82 21 02/25/23 17:50 158/86 H 02/25/23 16:30 98.2 F 100 H 14 02/25/23 16:30 136/87 02/25/23 16:28 98.4 F 93 H 14 02/25/23 16:28 112/64 02/25/23 16:25 98.4 F 91 H 14 02/25/23 16:25 102/59 L 02/25/23 16:23 98.4 F 99 H 14 02/25/23 16:23 135/96 02/25/23 16:20 98.2 F 102 H 10 L 02/25/23 16:20 140/79 02/25/23 16:19 128/84 02/25/23 16:19 98.2 F 107 H 2 L 02/25/23 16:18 98.2 F 91 H 9 L 02/25/23 16:18 91/69 L 02/25/23 16:15 98.2 F 89 0 L 02/25/23 16:15 118/75 02/25/23 16:14 98.2 F 90 02/25/23 16:14 126/76 02/25/23 16:00 98.1 F 89 19 02/25/23 16:00 110/74 02/25/23 15:59 98.1 F 88 20 02/25/23 15:59 122/69 02/25/23 15:53 97.7 F 89 19 02/25/23 15:53 103/75 02/25/23 15:50 97.5 F L 89 20 02/25/23 15:50 126/64 02/25/23 15:45 100 H 35 H 02/25/23 15:20 79 22 02/25/23 15:20 85/55 L 02/25/23 15:15 76 21 02/25/23 15:15 104/54 L 02/25/23 15:10 72 19 02/25/23 15:10 96/52 L 02/25/23 16:31 95 H 02/25/23 15:35 97.7 F 100 H 20 116/66 02/25/23 15:05 73 14 98/59 L 02/25/23 15:00 72 22 89/54 L 02/25/23 14:55 74 19 89/57 L 02/25/23 14:50 76 13 89/54 L 02/25/23 14:49 75 19 99/58 L 02/25/23 14:45 70 17 96/57 L 02/25/23 14:40 74 20 86/62 L 02/25/23 14:39 71 20 106/66 02/25/23 14:30 74 25 H 87/60 L 02/25/23 14:27 68 7 L 86/60 L 02/25/23 14:26 70 12 91/61 L 02/25/23 14:25 69 18 92/59 L 02/25/23 14:20 76 20 02/25/23 14:16 79 13 107/68 02/25/23 14:15 77 18 87/68 L 02/25/23 14:13 78 21 107/71 0723 14:07 77 29 H 125/72 02/25/23 15:11 80 22 104/54 L 02/25/23 15:04 97.9 F 77 16 98/59 L 02/25/23 14:56 98.1 F 75 18 89/57 L 02/25/23 14:49 72 13 89/54 L 02/25/23 13:51 92 H 16 97/70 L 02/25/23 13:00 82 15 104/77 02/25/23 11:48 87 16 113/81 02/25/23 14:28 97.5 F L 72 11 L 86/60 L 02/25/23 10:17 73 02/25/23 10:00 80 02/25/23 09:39 98.2 F 98 H 22 117/71 Pulse Ox O2 Del Method O2 Flow Rate 02/25/23 18:30 92 02/25/23 18:30 02/25/23 18:25 93 02/25/23 18:25 02/25/23 18:20 92 02/25/23 18:20 02/25/23 18:15 95 02/25/23 18:15 02/25/23 18:10 94 02/25/23 18:10 02/25/23 18:05 Room Air 02/25/23 18:05 96 02/25/23 18:00 98 02/25/23 18:00 02/25/23 17:55 98 02/25/23 17:55 02/25/23 17:53 02/25/23 17:53 100 02/25/23 17:52 100 02/25/23 17:52 02/25/23 17:51 02/25/23 17:51 02/25/23 17:50 98 02/25/23 17:50 100 Oxymask 5 02/25/23 16:30 100 02/25/23 16:30 02/25/23 16:28 99 02/25/23 16:28 02/25/23 16:25 100 02/25/23 16:25 02/25/23 16:23 99 02/25/23 16:23 02/25/23 16:20 100 02/25/23 16:20 02/25/23 16:19 02/25/23 16:19 87 L 02/25/23 16:18 02/25/23 16:18 02/25/23 16:15 94 02/25/23 16:15 02/25/23 16:14 96 02/25/23 16:14 02/25/23 16:00 94 02/25/23 16:00 02/25/23 15:59 96 02/25/23 15:59 02/25/23 15:53 98 02/25/23 15:53 02/25/23 15:50 96 02/25/23 15:50 02/25/23 15:45 95 02/25/23 15:20 95 02/25/23 15:20 02/25/23 15:15 95 02/25/23 15:15 02/25/23 15:10 94 02/25/23 15:10 02/25/23 16:31 02/25/23 15:35 97 Room Air 02/25/23 15:05 94 02/25/23 15:00 95 02/25/23 14:55 99 02/25/23 14:50 99 02/25/23 14:49 100 02/25/23 14:45 98 02/25/23 14:40 99 02/25/23 14:39 100 02/25/23 14:30 92 02/25/23 14:27 96 02/25/23 14:26 97 02/25/23 14:25 97 02/25/23 14:20 98 02/25/23 14:16 96 02/25/23 14:15 100 02/25/23 14:13 97 02/25/23 14:07 96 02/25/23 15:11 93 02/25/23 15:04 96 02/25/23 14:56 96 02/25/23 14:49 96 02/25/23 13:51 96 Room Air 02/25/23 13:00 99 Room Air 02/25/23 11:48 98 Room Air 02/25/23 14:28 94 02/25/23 10:17 02/25/23 10:00 100 Room Air 02/25/23 09:39 93 Room Air Transfer of Care Handoff Completed per policy Notes Mental Status: alert / awake / arousable and participated in evaluation Patient Amnestic to Procedure: Yes Nausea / Vomiting: adequately controlled Pain: adequately controlled Airway Patency, RR, SpO2: stable & adequate BP & HR: stable & adequate Hydration State: stable & adequate Anesthetic Complications: no major complications apparent and Pt Satisfied with anesthetic care
[2023-02-25 19:10] LABS: Basophils # (auto) 0.04 K/uL (0-0.2); Basophils % (auto) 0.3 %; Eosinophils # (auto) 0.01 K/uL (0-0.50); Eosinophils % (auto) 0.1 %; Hematocrit (blood only) 35.4 % (42.0-52.0); Hemoglobin 12.1 g/dl (14.0-18.0); Immature Granulocytes # (auto) 0.11 K/uL (0.01-0.20); Immature Granulocytes % (auto) 0.8 %; Lymphocytes # (auto) 1.69 K/uL (1.2-3.4); Lymphocytes % (auto) 11.8 %; Mean Corpuscular Hemoglobin 31.4 pg (25.0-34.0); Mean Corpuscular Hgb Conc 34.2 g/dL (32.0-36.0); Mean Corpuscular Volume 91.9 fL (80.0-100.0); Mean Platelet Volume 10.3 fL (9.4-12.4); Monocytes # (auto) 1.27 K/uL (0.11-0.59); Monocytes % (auto) 8.8 %; Neutrophils # (auto) 11.24 K/uL (1.40-6.50); Neutrophils % (auto) 78.2 %; Platelet Count 170 K/uL (130-400); RDW Coefficient of Variation 13.6 % (11.5-14.5); RDW Standard Deviation 45.8 fL (36.4-46.3); Red Blood Count 3.85 M/uL (4.70-6.10); White Blood Count 14.36 K/ul (4.8-10.8)
[2023-02-26 04:49] LABS: Basophils # (auto) 0.04 K/uL (0-0.2); Basophils % (auto) 0.3 %; Eosinophils # (auto) 0.12 K/uL (0-0.50); Hematocrit (blood only) 30.9 % (42.0-52.0); Hemoglobin 10.9 g/dl (14.0-18.0); Immature Granulocytes # (auto) 0.06 K/uL (0.01-0.20); Immature Granulocytes % (auto) 0.5 %; Lymphocytes # (auto) 1.91 K/uL (1.2-3.4); Lymphocytes % (auto) 16.4 %; Mean Corpuscular Hemoglobin 31.2 pg (25.0-34.0); Mean Corpuscular Hgb Conc 35.3 g/dL (32.0-36.0); Mean Corpuscular Volume 88.5 fL (80.0-100.0); Mean Platelet Volume 9.9 fL (9.4-12.4); Monocytes # (auto) 1.21 K/uL (0.11-0.59); Monocytes % (auto) 10.4 %; Neutrophils # (auto) 8.31 K/uL (1.40-6.50); Neutrophils % (auto) 71.4 %; Platelet Count 140 K/uL (130-400); RDW Coefficient of Variation 14.1 % (11.5-14.5); RDW Standard Deviation 45.1 fL (36.4-46.3); Red Blood Count 3.49 M/uL (4.70-6.10); White Blood Count 11.65 K/ul (4.8-10.8)
[2023-02-26 05:09] LABS: Bilirubin,Total 1.3 mg/dl (0.2-1.0); Calcium 7.2 mg/dl (8.6-10.3); Creatinine Clr Calc Pharmacy 96.2 ml/min; Est GFR (African American) 108.3 ml/min; Est GFR (Non-African American) 93.5 ml/min; Globulin 1.5 gm/dl (2.5-4.0); Magnesium 1.6 mg/dl (1.7-2.4); Potassium 3.9 mmol/L (3.5-5.1); Total Protein 4.5 gm/dl (6.0-8.3)
[2023-02-26 05:19] LABS: INR 1.1 (0.9-1.1); Prothrombin Time 11.9 Seconds (9.0-12.0)
[2023-02-26] MEDS: ICU Protocol for HYPERglycemia SCH ×2 (05:50→12:40)
[2023-02-26] MEDS: MAGNESIUM SULFATE / D5W 1 GM/100 ML BAG IV SCH ×3 (06:43→10:21)
[2023-02-26 07:05] LABS: Estimated Average Glucose 131 mg/dl; Hemoglobin A1C 6.2 % (4.5-5.6)
--- NOTE | 2023-02-26 07:09 | Critical Care Progress Note ---
Date of Service February 26, 2023 Assessment & Plan (1) Acute upper gastrointestinal bleeding: Plan: Reason Critically Ill: 62-year-old male with acute gastrointestinal hemorrhage s/p endoscopy with treatment and subsequent stabilization of hemoglobin now stable for de-escalation of care PLAN: Neuro: Near syncope - resolved Likely in the setting of symptomatic anemia Resp: Seasonal allergies and allergic rhinitis Asthma Albuterol MDI as needed CV: Hypertension Losartan 50 mg daily Fluids/Renal: Right-sided nephrolithiasis: No hydroureter Urology consulted, appreciate recs -Follow-up as outpatient with urology GI/Nutrition: Acute gastrointestinal hemorrhage - stable Likely a Cora-Cage tear: Successful therapeutic intervention -If rebleeds would necessitate transfer to tertiary care with angiography High dose protonix Heme: Symptomatic anemia Secondary to Cora-Cage tear DVT prophylaxis: SCDs, chemoprophylaxis contraindicated at this time Endocrine: ICU hyperglycemia protocol Vascular access: Peripheral IVs Code Status: Full code Disposition: stable for de-escalation of care (2) Right nephrolithiasis: (3) Calculus of distal right ureter: (4) Symptomatic anemia: (5) Cora-Cage tear: Admission and Anticipated Discharge Date Admission Date: February 25, 2023 Supervising Physician Co-Signing Physician Notes Dr. Escobar was resident physician during care of patient. I separately evaluated patient for staley portions of the history and the exam. I was present during the critical portion of medical decision making, and I discussed the case with the resident. I generally agree with the findings and plan. Stable for downgrade out of ICU Subjective Patient with no complaints this morning. No abdominal pain or vomiting. Passing gas, no BM. No more bleeding. No f/c/SOB/CP. Did have an instance of nausea x1 after his procedure, but nothing since. Review of Systems Review of Systems: See HPI Physical Exam Physical Exam: Gen: well appearing male in NAD Skin: warm, dry, no pallor HEENT: AT NC no scleral icterus no pallor MMM Cardiovascular: RRR no m/r/g 2+ peripheral pulses, clinically well perfused Respiratory: CTAB no wheezing no increased work of breathing Gastrointestinal: soft, non-tender, non-distended Musculoskeletal: No deformity Neuro: alert and oriented Psych: appropriate mood and affect Results & Data Results & Data Vital Signs (Past 12 Hours) Vitals 08:00 BP 101/74 HR 88 Resp 18 Temp 37.4 C O2 Sat 93% on RA Laboratory Results 02/26/23 04:28 02/26/23 04:28 Resident Activity Tracking Resident Involvement: Resident Care Provided Care Provided: Adult Hospital Medicine
[2023-02-26] MEDS: FLUTICASONE/VILANTEROL 200/25MCG 14 PUFFS/INHALER INH SCH (08:26)
[2023-02-26] MEDS: PANTOprazole 40 MG in SYRINGE 0 ML IV SCH ×2 (08:28→21:52)
--- NOTE | 2023-02-26 09:48 | Gastroenterology Progress Note ---
Date of Service February 26, 2023 Assessment & Plan (1) Sherri-Cage tear: Plan: Patient feeling much better today. no further episodes of emesis. discussed case with Dr. Byrnes who advised on plan. - continue with protonix 40mg IV BID. - okay to advance diet to clear liquids today. - continue to monitor hgb/hct. - reviewed EGD results with patient today. Admission and Anticipated Discharge Date Admission Date: February 25, 2023 Supervising Physician Co-Signing Physician Notes Agree with Ramin Guillen, PAC as above Abd: Soft, NT, ND, +BS Continue current therapy and supportive care Subjective Patient feeling much better today. s/p EGD 02/25 hematin in gastroesophageal junction, sherri cage tear (injected, clips placed). 02/26 hgb 10.9 patient has been NPO. he would like to advance diet. no further nausea, vomiting. no abdominal pain. no bowel movements since admission. he has been passing gas. Physical Exam Constitutional: WD/WN, vitals as above Respiratory: normal respiratory effort, lungs clear to auscultation Cardiovascular: RRR, no murmur, no edema Gastrointestinal (Abdomen): normal bowel sounds, soft, nontender, no hepatosplenomegaly Skin: no rashes, warm and dry Psychiatric: Orientation: alert and oriented x 3 Affect: euthymic affect Results & Data Results & Data Vital Signs (Past 12 Hours) Vital Signs Temp Pulse Resp BP Pulse Ox O2 Del Method 02/26/23 08:00 88 02/26/23 07:00 99.3 F 88 18 101/74 93 Room Air 02/26/23 06:30 99.5 F 86 13 93 02/26/23 06:30 105/62 02/26/23 06:15 99.5 F 82 18 91 02/26/23 06:00 99.5 F 79 18 91 02/26/23 06:00 108/73 02/26/23 05:45 99.5 F 84 18 90 02/26/23 05:30 99.0 F 79 19 93 02/26/23 05:30 110/73 02/26/23 05:15 98.8 F 82 17 91 02/26/23 05:00 98.8 F 84 19 92 02/26/23 05:00 116/63 02/26/23 04:45 99.5 F 87 20 91 02/26/23 04:30 99.7 F H 91 H 14 95 02/26/23 04:30 108/74 02/26/23 04:15 99.5 F 82 17 91 02/26/23 04:00 99.3 F 82 19 91 02/26/23 04:00 106/65 02/26/23 03:45 99.5 F 83 18 89 L 02/26/23 03:30 99.5 F 82 19 91 02/26/23 03:30 104/69 02/26/23 03:15 99.5 F 84 18 91 02/26/23 03:00 99.5 F 83 20 92 02/26/23 03:00 104/62 02/26/23 02:45 99.5 F 84 19 93 02/26/23 02:30 99.1 F 76 18 92 02/26/23 02:30 100/65 02/26/23 02:15 99.1 F 87 21 89 L 02/26/23 02:00 99.1 F 87 19 92 02/26/23 02:00 100/60 02/26/23 01:45 99.3 F 87 20 94 02/26/23 01:30 99.5 F 84 19 92 02/26/23 01:30 107/63 02/26/23 01:15 99.5 F 87 19 91 02/26/23 01:00 99.3 F 93 H 15 93 02/26/23 01:00 102/68 02/26/23 00:30 99.7 F H 88 20 92 02/26/23 00:30 98/65 L 02/26/23 00:15 99.5 F 89 20 92 02/26/23 00:00 99.5 F 87 18 93 02/26/23 00:00 102/64 02/25/23 23:45 99.5 F 89 20 91 02/25/23 23:30 97.7 F 90 18 93 02/25/23 23:30 110/60 02/25/23 23:15 95.9 F L 89 17 95 02/25/23 23:00 98.4 F 87 18 95 02/25/23 23:00 105/65 02/25/23 22:45 98.2 F 91 H 20 93 02/25/23 22:30 98.2 F 88 17 94 07/23 22:30 104/70 02/25/23 22:15 98.2 F 89 21 94 02/25/23 22:00 98.6 F 90 17 94 02/25/23 22:00 108/70 02/26/23 00:00 86 02/25/23 23:59 86 PG Care Time/CCT Total # of Minutes Spent Total Time Spent with Patient: Total time spent is greater than 50% in coordination of care (as documented) at patient's floor/unit and/or counseling patient: Coding Level of Care Code 86379 SUB INP/OBS CARE 09/12MIN Diagnoses Sherri-Cage tear K22.6 Time Spent (min) 25
--- NOTE | 2023-02-26 10:05 | Billing Data ---
Date of Service February 26, 2023 Coding Level of Care Code 16612 SUB INP/OBS CARE
--- NOTE | 2023-02-26 13:36 | Hospitalist Progress Note ---
Date of Service February 26, 2023 Assessment & Plan (1) Symptomatic anemia: Plan: -Admit to med/tele -Currently stable -Hgb today noted to be 11, down from 17 in Jul -Patient noted to have multiple black bowel movements over the past 72 hours, has been taking full strength aspirin and alive frequently over the past 2 weeks for chronic back pain -Found to be heme positive in the ED today, BUN is elevated compared to Cr -S/P 1.5L NSS in the ED, will be started on a Protonix drips shortly -Continue protonix drip, will keep NPO except meds until seen by GI -Will start LR while NPO for hydration -GI consult placed -Will repeat CBC at 5 pm, Type/screen obtained in the ED, can hold off on transfusion for now as he is stable -Place 2 large bore IV's, fall precautions -BL SCD's for DVT PPX -AM CBC, CMP, Mag, PT/INR On 02/26 Patient was transferred out of the ICU earlier in the day. EGD showed sherri steven tear, Appreciate input from GI. Patient will be on a clear liquid diet, now advanced to full liquid. will continue to advance diet as tolerated. (2) Lightheadedness: Plan: -Likely related to his GI bleed and dehydration -No other cardiac or neurologic symptoms -No focal neuro defects on exam -Fall precautions ordered, monitor for improvement with IV fluids This appears to have improved on 02/26 (3) Dark stools: Plan: -See symptomatic anemia (4) Hypertension: Plan: -Stable -Hold losartan for now to prevent hypotension with GI bleed (5) Asthma: Plan: -Stable on RA -Continue home scheduled and prn breathing treatments (6) Right nephrolithiasis: Plan: -Patient noted to have a 9mm calculus either protruding from the right vesicoureteral junction or within the adjacent bladder lumen -No signs of hydronephrosis -Has been unchanged since last CT on 04/08/22 -Patient explains that his chronic back pain is in the right lower back/right flank region and feels like muscle spasms Urology will set up outpatient followup Admission and Anticipated Discharge Date Admission Date: February 25, 2023 Subjective 62 yo male reports feeling much better. He has no new complaints. Patient reports tolerating his liquid diet. Review of Systems Review of Systems: All systems reviewed & are unremarkable except as noted in HPI & below Physical Exam Physical Exam: General: In no acute distress, stated age, well-nourished, ill but non-toxic appearing HEENT: Normocephalic, atraumatic, no scleral icterus, pupils around round, symmetrical, and reactive to light, dry mucus membranes, trachea midline, no thyromegaly Chest/Pulm: No respiratory distress, symmetrical chest expansion, clear breath sounds throughout Cardiac: RRR, no murmurs noted Abdomen: Negative for ascites and bruising, central scars from previous hernia repairs appear well-healed, normoactive bowel sounds, soft, non-tender to palpation throughout Musculoskeletal: Symmetrical and without signs of acute trauma, upper and lower extremities with full ROM, no atrophy, spasticity, or flaccidity Extremities: Radial, dorsalis pedis, and posterior tibial pulses are intact and symmetrical, no edema noted in the BL LE's Skin: Warm, dry, no rashes , lesions, or scars noted Neuro: Alert and oriented to person, place, month, year, and president, no focal defects, CN II-XII tested and intact, no tremors noted Psych: No acute distress, calm and cooperative during the exam Results & Data Results & Data Vital Signs (Past 12 Hours) Vital Signs Temp Pulse Resp BP Pulse Ox O2 Del Method 02/26/23 08:00 88 02/26/23 07:00 37.4 C 88 18 101/74 93 Room Air 02/26/23 06:30 37.5 C 86 13 93 02/26/23 06:30 105/62 02/26/23 06:15 37.5 C 82 18 91 02/26/23 06:00 37.5 C 79 18 91 02/26/23 06:00 108/73 02/26/23 05:45 37.5 C 84 18 90 02/26/23 05:30 37.2 C 79 19 93 02/26/23 05:30 110/73 02/26/23 05:15 37.1 C 82 17 91 02/26/23 05:00 37.1 C 84 19 92 02/26/23 05:00 116/63 02/26/23 04:45 37.5 C 87 20 91 02/26/23 04:30 37.6 C H 91 H 14 95 02/26/23 04:30 108/74 07/11/23 04:15 37.5 C 82 17 91 02/26/23 04:00 37.4 C 82 19 91 02/26/23 04:00 106/65 02/26/23 03:45 37.5 C 83 18 89 L 02/26/23 03:30 37.5 C 82 19 91 02/26/23 03:30 104/69 02/26/23 03:15 37.5 C 84 18 91 02/26/23 03:00 37.5 C 83 20 92 02/26/23 03:00 104/62 02/26/23 02:45 37.5 C 84 19 93 02/26/23 02:30 37.3 C 76 18 92 02/26/23 02:30 100/65 02/26/23 02:15 37.3 C 87 21 89 L 02/26/23 02:00 37.3 C 87 19 92 02/26/23 02:00 100/60 02/26/23 01:45 37.4 C 87 20 94 PG Care Time/CCT Total # of Minutes Spent Total Time Spent with Patient: Total time spent is greater than 50% in coordination of care (as documented) at patient's floor/unit and/or counseling patient: Coding Level of Care Code 38107 SUB INP/OBS CARE 3/50MIN Diagnoses Symptomatic anemia D64.9 Lightheadedness R42 Dark stools R19.5 Hypertension I10 Asthma J45.909 Asthma complication type: unspecified Asthma persistence: unspecified Asthma severity: moderate Right nephrolithiasis N20.0 (5) Asthma Asthma complication type: unspecified Asthma persistence: unspecified Asthma severity: moderate Qualified Code(s): J45.909 - Unspecified asthma, uncomplicated
[2023-02-26] MEDS: MONTELUKAST SODIUM 10 MG TABLET PO SCH (16:30)
[2023-02-27 06:40] LABS: Basophils # (auto) 0.04 K/uL (0-0.2); Basophils % (auto) 0.6 %; Eosinophils # (auto) 0.18 K/uL (0-0.50); Eosinophils % (auto) 2.7 %; Hematocrit (blood only) 29.6 % (42.0-52.0); Hemoglobin 10.4 g/dl (14.0-18.0); Immature Granulocytes # (auto) 0.03 K/uL (0.01-0.20); Immature Granulocytes % (auto) 0.5 %; Lymphocytes # (auto) 1.45 K/uL (1.2-3.4); Lymphocytes % (auto) 21.8 %; Mean Corpuscular Hemoglobin 31.6 pg (25.0-34.0); Mean Corpuscular Hgb Conc 35.1 g/dL (32.0-36.0); Mean Platelet Volume 10.2 fL (9.4-12.4); Monocytes # (auto) 0.72 K/uL (0.11-0.59); Monocytes % (auto) 10.8 %; Neutrophils # (auto) 4.24 K/uL (1.40-6.50); Neutrophils % (auto) 63.6 %; Platelet Count 135 K/uL (130-400); RDW Coefficient of Variation 13.5 % (11.5-14.5); RDW Standard Deviation 44.3 fL (36.4-46.3); Red Blood Count 3.29 M/uL (4.70-6.10); White Blood Count 6.66 K/ul (4.8-10.8)
[2023-02-27 06:53] LABS: Albumin Globulin Ratio 1.8 (0.9-2); Albumin Level 3.1 gm/dl (3.4-5.0); BUN Creatinine Ratio 16.9 (10-20); Bilirubin,Total 1.5 mg/dl (0.2-1.0); Calcium 7.6 mg/dl (8.6-10.3); Creatinine Clr Calc Pharmacy 88.6 ml/min; Est GFR (African American) 104.7 ml/min; Est GFR (Non-African American) 90.4 ml/min; Globulin 1.7 gm/dl (2.5-4.0); Potassium 3.9 mmol/L (3.5-5.1); Total Protein 4.8 gm/dl (6.0-8.3)
[2023-02-27 07:05] LABS: INR 1.1 (0.9-1.1); Prothrombin Time 11.7 Seconds (9.0-12.0)
[2023-02-27] MEDS: PANTOprazole 40 MG in SYRINGE 0 ML IV SCH ×2 (08:07→20:16)
[2023-02-27] MEDS: FLUTICASONE/VILANTEROL 200/25MCG 14 PUFFS/INHALER INH SCH (08:07)
[2023-02-27] MEDS ORDERED: HYDROCORTISONE HC 2.5% CRM 30GM TUBE EXT PRN (11:08)
--- NOTE | 2023-02-27 14:58 | Urology Progress Note ---
Date of Service February 27, 2023 Assessment & Plan (1) Calculus of distal right ureter: (2) Bladder stone: Plan 62yo/M admitted with GI bleed now s/p emergent EGD 02/25. Urology asked to evaluate patient due to incidental finding of possible ureteral/bladder stone. CT abd pelvis on arrival demonstrated a 9mm calculus either protruding from the right vesicoureteral junction or within the adjacent bladder lumen. This is unchanged in position from the 04/08/2022 examination and there is no upstream hydroureteronephrosis. He is afebrile and hemodynamically stable. Labs show no leukocytosis and normal renal function. Urinalysis on admission without signs of infection or blood. Pt currently has a Villagomez catheter which is draining clear yellow urine. He denies acute flank pain, but does report chronic right lower back pain which comes and goes. CT imaging independently reviewed with Dr. Gilmore. 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 He will eventually need stone treatment, however this can be arranged as an outpatient as he is stable from a standpoint and recovering from other acute issues. However, we did discuss the possibility of stone treatment on Saturday03/01/23 with if he were to remain inpatient and is recovering appropriately. Discussed with hospital team. Will continue to follow. Admission and Anticipated Discharge Date Admission Date: February 25, 2023 Subjective Patient examined at bedside this AM. Awake, resting in bed on arrival. No acute distress. Reports he is feeling much better. Villagomez intact, draining clear yellow urine. No c/o pain. Denies f/c/n/v. Review of Systems 2 Constitutional: as per Subjective / HPI Genitourinary: + as per Subjective / HPI Physical Exam Constitutional: no acute distress Respiratory: no respiratory distress and no labored breathing Skin: No visible rashes or lesions to exposed skin areas Neurologic: moves all extremities and awake Psychiatric: A+Ox3, euthymic affect Lymphatic: Villagomez intact Results & Data Vital Signs (Past 12 Hours) Vital Signs Temp Pulse Pulse Resp BP Pulse Ox O2 Del Method 02/27/23 12:04 36.7 C 76 14 120/80 95 Room Air 02/27/23 07:56 36.7 C 76 19 119/76 94 Room Air 02/27/23 07:25 76 PG Care Time/CCT Total # of Minutes Spent Total Time Spent with Patient: Total time spent is greater than 50% in coordination of care (as documented) at patient's floor/unit and/or counseling patient: Coding Level of Care Code 25887 SUB INP/OBS CARE 2/35MIN Diagnoses Calculus of distal right ureter N20.1 Bladder stone N21.0
--- NOTE | 2023-02-27 15:41 | Hospitalist Progress Note ---
Date of Service February 27, 2023 Assessment & Plan (1) Symptomatic anemia: Plan: . Symptomatic anemia with Cora-Cage tear Heme positive in ER, acute episode of hematemesis Underwent EGD 02/26 with Cora-Cage tear identified and repaired. No ulcers noted Continue PPI twice daily Remains well, hemodynamically stable. H&H is +/- 0.5 g/per deciliter, continue to trend Diet advancement per GI, PPI twice daily x6 weeks No additional transfusion indicated at time of bedside assessment (2) Lightheadedness: Plan: -Likely related to his GI bleed and dehydration -No other cardiac or neurologic symptoms -No focal neuro defects on exam -Fall precautions ordered, monitor for improvement with IV fluids Improved (3) Dark stools: Plan: -See symptomatic anemia (4) Hypertension: Plan: -Stable -Hold losartan for now to prevent hypotension with GI bleed (5) Asthma: Plan: -Stable on RA -Continue home scheduled and prn breathing treatments (6) Right nephrolithiasis: Plan: -Patient noted to have a 9mm calculus either protruding from the right vesicoureteral junction or within the adjacent bladder lumen -No signs of hydronephrosis -Has been unchanged since last CT on 04/08/22 -Patient explains that his chronic back pain is in the right lower back/right flank region and feels like muscle spasms If patient remains inpatient 03/01 may have stone treatment/cystoscopy, but would not hold as inpatient for this. Outpatient follow-up being set up Admission and Anticipated Discharge Date Admission Date: February 25, 2023 Subjective Patient reports he is doing well bedside. He is seen with his at bedside. No abdominal pain or nausea today. BM today with some black residual BMs. No lightheadedness, dizziness, chest pain, chest pressure. He is eager to advance his diet. Many questions regarding the place and nature of his Cora-Cage tear, otherwise no acute concerns Review of Systems Review of Systems: All systems reviewed & are unremarkable except as noted in Subjective Physical Exam Physical Exam: General: A&Ox3. NAD. Cooperative. HEENT: Atraumatic, normocephalic. PERLAA. EoM intact. Vision/hearing intact Pulm: CTAB A&P. -wheezes, -rales, -rhonchi. Symmetrical chest rise. No increased work of breathing. No respiratory distress. Cardiac: RRR, -mrg. Radial pulses intact and symmetrical. Abdominal: Nontender, nondistended, soft. BS present. Extremities: Warm, dry. Moves all extremities equally. Results & Data Results & Data Vital Signs (Past 12 Hours) Vital Signs Temp Pulse Pulse Resp BP Pulse Ox O2 Del Method 02/27/23 15:04 83 02/27/23 12:04 36.7 C 76 14 120/80 95 Room Air 02/27/23 07:56 36.7 C 76 19 119/76 94 Room Air 02/27/23 07:25 76 PG Care Time/CCT Total # of Minutes Spent Total Time Spent with Patient: Total time spent is greater than 50% in coordination of care (as documented) at patient's floor/unit and/or counseling patient: Coding Level of Care Code 81080 SUB INP/OBS CARE 3/50MIN Diagnoses Symptomatic anemia D64.9 Lightheadedness R42 Dark stools R19.5 Hypertension I10 Asthma J45.909 Asthma complication type: unspecified Asthma persistence: unspecified Asthma severity: moderate Right nephrolithiasis N20.0 (5) Asthma Asthma complication type: unspecified Asthma persistence: unspecified Asthma severity: moderate Qualified Code(s): J45.909 - Unspecified asthma, uncomplicated
[2023-02-27] MEDS: MONTELUKAST SODIUM 10 MG TABLET PO SCH (17:28)
[2023-02-27] MEDS ORDERED: HYDROCORTISONE ACETATE 25 MG SUPP PR ONE (18:00)
[2023-02-27 19:58] LABS: Hematocrit (blood only) 32.7 % (42.0-52.0); Hemoglobin 11.5 g/dl (14.0-18.0)
[2023-02-27] MEDS ORDERED: HYDROCORTISONE 2.5% CR 30 GM TUBE EXT PRN (20:09)
[2023-02-27] MEDS: LIDOCAINE 4% CREAM 15 GM TUBE EXT PRN (20:43)
[2023-02-28] MEDS ORDERED: LACTATED RINGER'S 250 ML IV ONE (07:41)
[2023-02-28 08:46] LABS: Basophils # (auto) 0.03 K/uL (0-0.2); Basophils % (auto) 0.4 %; Eosinophils # (auto) 0.14 K/uL (0-0.50); Eosinophils % (auto) 1.8 %; Hematocrit (blood only) 30.3 % (42.0-52.0); Hemoglobin 10.6 g/dl (14.0-18.0); Immature Granulocytes # (auto) 0.04 K/uL (0.01-0.20); Immature Granulocytes % (auto) 0.5 %; Lymphocytes # (auto) 1.21 K/uL (1.2-3.4); Lymphocytes % (auto) 15.8 %; Mean Corpuscular Hemoglobin 31.9 pg (25.0-34.0); Mean Corpuscular Volume 91.3 fL (80.0-100.0); Mean Platelet Volume 10.6 fL (9.4-12.4); Monocytes # (auto) 0.87 K/uL (0.11-0.59); Monocytes % (auto) 11.4 %; Neutrophils # (auto) 5.37 K/uL (1.40-6.50); Neutrophils % (auto) 70.1 %; Platelet Count 151 K/uL (130-400); RDW Coefficient of Variation 13.7 % (11.5-14.5); RDW Standard Deviation 44.6 fL (36.4-46.3); Red Blood Count 3.32 M/uL (4.70-6.10); White Blood Count 7.66 K/ul (4.8-10.8)
[2023-02-28 09:09] LABS: INR 1.1 (0.9-1.1); Prothrombin Time 11.8 Seconds (9.0-12.0)
[2023-02-28 09:17] LABS: Albumin Globulin Ratio 1.8 (0.9-2); Albumin Level 3.4 gm/dl (3.4-5.0); BUN Creatinine Ratio 12.5 (10-20); Bilirubin,Total 1.5 mg/dl (0.2-1.0); Calcium 8.3 mg/dl (8.6-10.3); Creatinine Clr Calc Pharmacy 88.8 ml/min; Est GFR (African American) 105.2 ml/min; Est GFR (Non-African American) 90.8 ml/min; Globulin 1.9 gm/dl (2.5-4.0); Potassium 3.6 mmol/L (3.5-5.1); Total Protein 5.3 gm/dl (6.0-8.3)
[2023-02-28] MEDS: PANTOprazole 40 MG in SYRINGE 0 ML IV SCH (09:25)
[2023-02-28] MEDS: FLUTICASONE/VILANTEROL 200/25MCG 14 PUFFS/INHALER INH SCH (09:25)
[2023-02-28] MEDS: LIDOCAINE 4% CREAM 15 GM TUBE EXT PRN (12:43)
--- NOTE | 2023-02-28 13:44 | Discharge Summary ---
Date of Service February 28, 2023 Admission HPI Per Admitting Provider Carlos is a 62 year old male with a PMH significant for asthma, bleeding hemorrhoids, HTN, Pericarditis, and left vertebral artery stenosis who presented to the [facility] ED on 02/25 with multiple complaints including lightheadedness, black stool, neck stiffness/headache, and back pain. In the ED vitals were stable. Labs were significant for a Hgb of 11 (down from 17 as of 07/31/22), BUN of 40 with stable Cr, total bili of 1.2 (down from 2.3 as of 08/09), sodium of 133, covid 19 negative, and heme + stool per the ED staff. Chest xray was read as "Mild cardiomegaly with no active disease in the chest.". CT of the abd/pelvis w/IV con was read as " Prior to admission the patient was given 1500 mL NSS, 4 mg IV zofran, started on a Protonix drip, and type & screened in case transfusion would be needed. At the time of the exam the patient was sitting in bed in no acute distress with his sitting bedside, history was obtained from both. The patient states that he had been in his normal state of health until this past Saturday morning at approximately 0300 when he developed multiple episodes of nausea, diaphoresis, and non-bloody diarrhea. He took 2 doses of pepto-bismol and his symptoms seemed to improve. On 02/23 the patient went golfing and did to eat breakfast. He has been taking multiple doses of full strength aspirin and Alieve over the past 2 weeks for right lower back pain. By the Ed of the day on 02/23 he felt weak, dizzy, and dehydrated, he did have one can of beer while [place] the golf course. Since Saturday he has had multiple episodes of black, watery diarrhea. This am he had another episode of black diarrhea and was significantly lightheaded, he states he almost passed out this am walking up the steps. He denies recent fever, chills, chest pain, SOB, abd pain, nausea, vomiting, dysuria hematuria, LE swelling, and recent trauma. He denies a previous hx of GI bleeding or ulcers, he is currently being treated for bleeding hemorrhoids with topical steroids. He is a full code and would want his to make medical decisions for him if he could not make them himself. Please refer to Dr. Salgado's attestation for any changes to the treatment plan Principal Diagnosis Cora Cage Tear Discharge Exam General: A&Ox3. NAD. Cooperative. HEENT: Atraumatic, normocephalic. Pupils equal and reactive to light. Vision and hearing grossly intact Pulm: CTAB A&P. -wheezes, -rales, -rhonchi. Symmetrical chest rise. No increased work of breathing. No respiratory distress. Cardiac: RRR, -mrg. Radial pulses intact and symmetrical. Abdominal: Nontender, nondistended, soft. BS present. Extremities: Warm and dry moves all extremities Discharge Data Allergies Allergy/AdvReac Type Severity Reaction Status Date / Time erythromycin base Allergy Unknown Gastrointestinal Verified 12/24/22 13:43 Upset amoxicillin [From Augmentin] AdvReac Gastrointestinal Unverified 12/24/22 13:43 Upset clavulanic acid AdvReac Gastrointestinal Unverified 12/24/22 13:43 [From Augmentin] Upset Consultations 02/25/23 12:50 ED Decision to Admit Stat 02/25/23 14:17 Consult Boiler Tube Blower Routine 02/25/23 14:35 Consult Gastroenterology Stat Procedures Performed Operation Date: 02/25/23 16:00 Actual Procedures p EGD Hemostasis - Gabriel Price Case, DO Ordered Studies 02/25/23 11:42 CT Abd and Pelvis [CT abd pelvis IV con only] Stat Hospital Course (1) Symptomatic anemia: Carlos Dumont 62-year-old male who presented after nausea/vomiting with a severe episode of hematemesis. He underwent an EGD and was found to have a gastric body Cora-Cage tear with no stomach ulcers. Following hemostasis with clipping and transfusion his hemoglobin duane and remained stable +/- 1 g/dL. He was clinically well with no nausea/vomiting/abdominal pain at time of discharge, was discharged to continue PPI therapy twice daily for 6 weeks with follow-up to his PCP and gastroenterology. He did have some dark BMs which were discussed with him by GI, these were felt to be from residual blood but were gradually improving. He was noted to have a right UVJ calculus during admission, urology was consulted. Patient was asymptomatic from this and without hydronephrosis or EDELMIRA. He was not recommended for prolonged stay for management of the stone, was recommended to follow-up with urology as an outpatient. To do as outpatient: 1. PCP follow-up. Repeat CBC within 1 week for stability 2. GI follow-up 3. Urology follow-up for UVJ stone 4. Continue Protonix 40 mg twice daily for at least 6 weeks - Symptomatic anemia with Cora-Cage tear Heme positive in ER, acute episode of hematemesis Underwent EGD 02/26 with Cora-Cage tear identified and repaired. No ulcers noted Continue PPI twice daily Remains well, hemodynamically stable. H&H stable +/- one-point Diet advancement per GI, with good tolerance PPI twice daily x6 weeks No additional transfusion indicated at time of bedside assessment for discharge (2) Lightheadedness: -Likely related to his GI bleed and dehydration -No other cardiac or neurologic symptoms -No focal neuro defects on exam -Fall precautions ordered, monitor for improvement with IV fluids Improved Flomax deferred (3) Dark stools: -See symptomatic anemia (4) Hypertension: -Stable -Hold losartan for now to prevent hypotension with GI bleed (5) Asthma: -Stable on RA -Continue home scheduled and prn breathing treatments (6) Right nephrolithiasis: -Patient noted to have a 9mm calculus either protruding from the right vesicoureteral junction or within the adjacent bladder lumen -No signs of hydronephrosis -Has been unchanged since last CT on 04/08/22 -Patient explains that his chronic back pain is in the right lower back/right flank region and feels like muscle spasms Discussed with urology, may follow-up as outpatient Total Time Total Time Spent Total Time Spent (In Minutes): Time spend day of discharge 35 minutes including direct patient care, documentation, review of labs and images, and coordination of care. Discharge Plan Discharge Items Patient Disposition: Home - Self-Care Reason For Visit: SYMPTOMATIC ANEMIA, GI BLEED Discharge Diagnosis: Cora-Cage tear Activity: Per Instructions section Non-emergency contact: Primary Care Provider and Cassandra Consultant Call non-emergency contact if: you have any medication questions and your symptoms worsen Follow-up/Referrals: Gabriel Byrnes, [Physician] - Jay Gilmore MD [Physician] - Reilly Yun [Primary Care Provider] - Diet: Regular Addtl Attending Provider Instructions: You are seen in the hospital for an episode of hematemesis/GI bleeding. You had an endoscopy and were found to have a Cora-Cage tear, a tear in the lining of the stomach commonly caused by vomiting/dry heaving. Clips were placed to repair the tear and you were placed on an antiacid medicine. Your bleeding stopped and your blood counts were improving both the day before and day of discharge. You have been started on antiacid medication, Protonix. Please take Protonix 40 mg twice daily for at least 6 weeks. Your GI doctor will recommend whether you should continue this once a day or not at your follow-up appointment. You have been prescribed Zofran 0.4 mg dissolving tablets for nausea. If you have severe nausea in the future, you may take 1 of these tablets up to every 6 hours to help improve nausea and prevent vomiting/dry heaving. If you have severe symptoms or recurrent bleeding you should have reevaluation either by your PCP or in the emergency department You were seen by urology for a 9 mm calculus at the right UVJ (kidney/bladder stone). This did not show any signs of related obstruction or kidney injury. He may follow-up with urology as an outpatient, you should receive a call to confirm this appointment. If you do not receive a call, please contact the urology office at the number above If you develop any new or worsening symptoms including fever, chills, sweats, chest pain, chest pressure, difficulty breathing, uncontrolled nausea/vomiting, rash, wheezing, passing out or nearly passing out, bleeding, black/bloody bowel movements, or other new or concerning symptoms please call your primary care physician, or call 911 for re-evaluation in the emergency department if you are very concerned. Pending Studies at Discharge: No Stand-Alone Forms: My [employer], Smoking Cessation Medications and DC Order Prescriptions: New pantoprazole [Protonix] 40 mg tablet,delayed release (DR/EC) 40 mg PO BID 42 Days Qty: 84 0RF ondansetron 4 mg tablet,disintegrating 4 mg PO Q6H PRN (Reason: nausea and vomiting) Qty: 10 0RF hydrocortisone acetate [Anusol-HC] 25 mg suppository 25 mg PA HS PRN (Reason: hemorrhoids) Qty: 12 0RF Continued ipratropium-albuterol 0.5 mg-3 mg(2.5 mg base)/3 mL solution for nebulization 3 ml INH QID PRN (Reason: Shortness Of Breath Or Wheezing) 90 Days Qty: 360 0RF epinephrine 0.3 mg/0.3 mL auto-injector 0.3 mg IM Q4H PRN (Reason: anaphylaxis) Qty: 2 1RF losartan 50 mg tablet 50 mg PO DAILY Qty: 90 3RF Breo Ellipta 200-25 mcg/dose blister with device 1 inh INHALATION QAM Qty: 3 3RF Rx Instructions: WITH A RINSE OF MOUTH AFTERWARDS. Xolair 150 mg/mL syringe 150 mg subcut .COMPLEX Qty: 1 11RF Rx Instructions: INJECT 150 mg subcut EVERY 4 WEEKS APPROVED GOOD 08/03/22-09/03/23 [facility] [id number] HL albuterol sulfate 90 mcg/actuation HFA aerosol inhaler 2 puff Inhalation QID PRN (Reason: Wheezing) Qty: 18 5RF loratadine 10 mg capsule 10 mg PO QAM montelukast 10 mg tablet See Rx Instructions .ROUTE .COMPLEX Qty: 90 3RF Dose Instruction: TAKE 1 TABLET DAILY Rx Instructions: TAKE 1 TABLET DAILY fluticasone propionate [Flonase Allergy Relief] 50 mcg/actuation [place],Suspension 2 spray INTRANASAL QAM pyridoxine (vitamin B6) [Vitamin B-6] 500 mg Tablet 0 mg PO HS valacyclovir 1 gram tablet 2 mg PO DIRECTED PRN (Reason: Cold Sores) Rx Instructions: Take 2 tabs at onset & 2 tabs 12 hr later hydrocortisone 2.5 % cream 1 applic TOPICAL DAILY PRN (Reason: hemmroid) vitamin E 268 mg (400 unit) Capsule 268 mg PO DAILY Discharge Orders: Discharge Order (Routine); Ordered 02/28/23 Ordered By: Rodney Valle Admission Data Admit Date/Time: 02/25/23 12:54 Attending Provider: Rodney Valle Admit Provider: Juni Salgado Primary Care Provider: Reilly Yun Other Providers: Juni Salgado ; Jorge Alberto Mack ; Gabriel Byrnes Coding Level of Care Code 00125 INP/OBS DISCH >30 MIN Diagnoses Symptomatic anemia D64.9 Lightheadedness R42 Dark stools R19.5 Hypertension I10 Asthma J45.909 Asthma complication type: unspecified Asthma persistence: unspecified Asthma severity: moderate Right nephrolithiasis N20.0
== END 2023-02-28 15:03 | disposition home or self-care (01) | DRG 369 ==
LOC: ED 09:36 → SUATTDRO 12:54 → 1E 12:54 → 2N 02-26 14:46

== ENCOUNTER 2023-08-10 12:34 | Observation (INO) ==
[2023-08-10] MEDS ORDERED: dilTIAZem HCl 5 MG/ML 5 ML VIAL IV ONE (12:48)
--- NOTE | 2023-08-10 13:07 | Emergency Department Note ---
Impression & Plan Influenza A, Atrial fibrillation with rapid ventricular response ED Provider Note NAME: MADI ALCARAZ AGE: 62 SEX: M : 1960 ARRIVES VIA: Walk-In INFORMANT: Patient, ED PROVIDER(S): Keila Esposito MD CHIEF COMPLAINT: Palpitations HPI: This is a 62-year-old male with history of asthma, hypertension presenting for racing heart. Patient states that for the past 2 days he has felt chills, upper respiratory type symptoms with a cough. He states he been coughing significantly over the past few days. He thought the was having wheezing and was taking increasing amounts of albuterol inhalers at home. He states he used albuterol nebulizer last night, and for the morning and then this morning. He states he felt his heart was racing this morning but has on exactly what time. No chest pain, nausea or vomiting. ROS: See above HPI for pertinent positives & negatives. A total of 10 systems reviewed and were otherwise negative. PAST MEDICAL HISTORY: See Below PAST SURGICAL HISTORY: See Below FAMILY HISTORY: See Below SOCIAL HISTORY: See Below HOME MEDICATIONS: See Below ALLERGIES: See Below VITALS: See Below PHYSICAL EXAMINATION: General: resting comfortably in no acute distress Head: Normocephalic and atraumatic Eyes: Normal inspection, extraocular muscles intact Ear, nose, throat: Normal external exam Neck: Normal range of motion Respiratory: lungs clear to auscultation bilaterally Cardiovascular: Irregularly irregular rhythm, no murmurs GI: soft, nontender, no guarding or rebound Extremities: nontender, moves all extremities Neuro: The patient awake and alert, appropriately conversive, no focal deficits, symmetric faces Skin: Warm, dry, and intact MEDICAL DECISION MAKING: This is a 62-year-old male with history of asthma, hypertension presenting for racing heart. Patient is in A-fib with RVR with a rate into the 150s to 180s. Patient given a dose of IV diltiazem 20 mg. Due to patient's asthma and albuterol use, will defer beta-samantha use at this time. -With patient's diltiazem, patient to become transiently hypotensive, some resolution of his tachycardia however not complete resolved. Only went down to 110 and would come back up to 150s -Patient had no persistent hypotension with diltiazem. -Lab work is reviewed without leukocytosis or anemia, no electrolyte disturbances, troponin 6.7, BNP 27 -patient is flu a positive -Suspected influenza A as well as albuterol use are likely the source of patient's conversion A-fib -Chest Xray independently interpreted by me showing no pneumothorax, focal opacity, or pleural effusions. -Patient developed chest pain during his course here -CTA performed to rule out PE as potential was of A-fib RVR with hypotension -CTA PE reveals no pulmonary embolism, noted for moderate cardiomegaly -Due to concern for hypotension with diltiazem due to reduced EF, will do digoxin load -Patient had resolution of A-fib and is converted to sinus rhythm after diltiazem load Differential diagnosis: A-fib, PE, ACS, pneumonia ER treatment provided: See below Diagnostics interpreted by me: ECG: ECG independently interpreted by me with atrial fibrillation with RVR, rate of 167, normal axis, normal QRS, normal QTc, no ST segment elevations consistent with STEMI criteria Cardiac Monitoring: An order was placed for continuous cardiac monitoring. The monitor shows a rate of 135 with atrial fibrillation rhythm. Laboratory studies: As stated above and show below. Imaging studies: See below. Critical Care Note: I have personally spent 60 minutes of critical care time in the direct management of this patient. This includes bedside care, interpretation of diagnostic studies, and testing, discussion with consultants, patient, and family members, and other required patient management activities. This 60 minutes is in excess of all separately billable procedures. Past Med/Surg History Medical History (Updated 08/10/23 @ 19:09 by Keila Esposito MD) Cora-Cage tear 02/25/23 Hx MRSA infection 12-15 yrs ago; unsure where; BCC (basal cell carcinoma of skin) excision left calf Environmental and seasonal allergies History of COVID-19 03/2022- fever, chills, head congestion; resolved History of airway aspiration aspirated after colonoscopy 10/2022 - PSH Hx of hiatal hernia x 3 Allergy desensitization therapy receives allergy shots Bladder stone Allergic rhinitis Vertebral artery stenosis "hemodynamically significant stenosis of the left vertebral artery at the level of the C4. There is compensatory enlargement of a branch vessel proximal to this stenosis." Hypertension Multiple lung nodules on CT Asthma well controlled w/ inhaler use and xolair injections; has not used neb in ~6 mos, and uses rescue inhaler ~ 2 times a month, mostly r/t weather Surgical History History of esophagogastroduodenoscopy (EGD) Hx of colonoscopy Hx of foot surgery torn achilles History of tonsillectomy History of mastoidectomy History of appendectomy Family History Father Stroke Hypertension Lung cancer Mother Allergies Hypertension Hearing loss Social History Smoking Status: Never smoker Second Hand Exposure: No; Do You Dip or Chew Tobacco: No; Hx Alcohol Use: Yes Alcohol type: beer and wine Hx Substance Use: No Preferred Language: Danish Communication Ability: Effective Furnace Worker Required: No Beliefs That Will Affect Care: None marital status: Current Living Situation: Spouse Feels Safe at Home: Yes Assistive Devices: Glasses and Nebulizer Allergies Allergies Allergy/AdvReac Type Severity Reaction Status Date / Time amoxicillin [From Augmentin] AdvReac Unknown Gastrointestinal Verified 08/10/23 15:52 Upset clavulanic acid AdvReac Unknown Gastrointestinal Verified 08/10/23 15:52 [From Augmentin] Upset erythromycin base AdvReac Unknown Gastrointestinal Verified 08/10/23 15:52 Upset Home Meds Home Medications Medication Instructions Recorded Confirmed loratadine 10 mg capsule 10 mg PO QAM 03/31/19 08/10/23 pyridoxine (vitamin B6) 500 mg 500 mg PO HS 01/22/22 08/10/23 tablet valacyclovir 1 gram tablet 2 mg PO DIRECTED PRN Cold Sores 04/08/22 08/10/23 hydrocortisone 2.5 % topical cream 1 applic topical DAILY PRN hemmroid 02/25/23 08/10/23 vitamin E 268 mg (400 unit) capsule 268 mg PO QAM 02/25/23 08/10/23 triamcinolone acetonide 55 mcg 1 spray intranasal QAM 03/21/23 08/10/23 nasal spray aerosol (Nasacort) docusate sodium 100 mg capsule 100 mg PO HS 03/25/23 08/10/23 (Colace) cholecalciferol (vitamin D3) 25 25 mcg PO DAILY 08/10/23 08/10/23 mcg (1,000 unit) capsule (Vitamin D3) epinephrine 0.3 mg/0.3 mL 0.3 mg IM DIRECTED PRN 08/10/23 08/10/23 injection, auto-injector anaphylaxis montelukast 10 mg tablet 10 mg PO DAILY 08/10/23 08/10/23 omalizumab 150 mg/mL subcutaneous 150 mg subcut MONTHLY 08/10/23 08/10/23 syringe (Xolair) Previous Rx's Medication Instructions Recorded ipratropium 0.5 mg-albuterol 3 mg 3 ml inhalation QID PRN Shortness 12/17/19 (2.5 mg base)/3 mL nebulization Of Breath Or Wheezing 90 days #360 soln vials albuterol sulfate 90 mcg/actuation 2 puff inhalation QID PRN Wheezing 02/20/22 aerosol inhaler #18 grams fluticasone furoate 200 1 inh inhalation QAM #3 Inhalers 08/27/22 mcg-vilanterol 25 mcg/dose inhalation powder (Breo Ellipta) hydrocortisone acetate 25 mg 25 mg NM HS PRN hemorrhoids #12 ea 02/28/23 rectal suppository (Anusol-HC) ondansetron 4 mg disintegrating 4 mg PO Q6H PRN nausea and 02/28/23 tablet vomiting #10 tabs losartan 50 mg tablet 50 mg PO DAILY #90 tabs 04/15/23 pantoprazole 40 mg tablet,delayed 40 mg PO DAILY #90 tabs 04/15/23 release (Protonix) Results & Data (ED) Vital Signs Vital Signs - 24 hr 08/10/23 12:36 08/10/23 12:50 08/10/23 12:52 Temperature 36.7 C Temperature Source Temporal Artery Scan Pulse Rate 175 H 168 H 162 H Pulse Rate [Apical] Pulse Rate from SpO2 Sensor 167 H Respiratory Rate 20 17 Respiratory Effort / Characteristics Non-Labored Respiratory Depth Normal Blood Pressure 99/59 L Blood Pressure [Left Arm] Blood Pressure Mean 72 Blood Pressure Mean [Left Arm] Pulse Oximetry 94 99 Oxygen Delivery Method Room Air Sepsis Recent Fever Within 48 Hours No Sepsis New/Unexplained Change in Mental Status No Sepsis Action Taken by Nursing No Action Required 08/10/23 12:55 08/10/23 12:55 08/10/23 12:56 Temperature Temperature Source Pulse Rate 127 H Pulse Rate [Apical] Pulse Rate from SpO2 Sensor 140 H Respiratory Rate 15 Respiratory Effort / Characteristics Respiratory Depth Blood Pressure 74/56 L 78/62 L Blood Pressure [Left Arm] Blood Pressure Mean 59 65 Blood Pressure Mean [Left Arm] Pulse Oximetry 93 Oxygen Delivery Method Sepsis Recent Fever Within 48 Hours Sepsis New/Unexplained Change in Mental Status Sepsis Action Taken by Nursing 08/10/23 12:56 08/10/23 12:57 08/10/23 12:58 Temperature Temperature Source Pulse Rate 124 H Pulse Rate [Apical] Pulse Rate from SpO2 Sensor 129 H Respiratory Rate 16 Respiratory Effort / Characteristics Respiratory Depth Blood Pressure 94/68 L Blood Pressure [Left Arm] Blood Pressure Mean 78 Blood Pressure Mean [Left Arm] Pulse Oximetry 99 98 Oxygen Delivery Method Room Air Sepsis Recent Fever Within 48 Hours Sepsis New/Unexplained Change in Mental Status Sepsis Action Taken by Nursing 08/10/23 12:58 08/10/23 13:00 08/10/23 13:00 Temperature Temperature Source Pulse Rate 130 H 136 H Pulse Rate [Apical] Pulse Rate from SpO2 Sensor 121 H 139 H Respiratory Rate 17 16 Respiratory Effort / Characteristics Respiratory Depth Blood Pressure 95/67 L Blood Pressure [Left Arm] Blood Pressure Mean 84 Blood Pressure Mean [Left Arm] Pulse Oximetry 99 99 Oxygen Delivery Method Sepsis Recent Fever Within 48 Hours Sepsis New/Unexplained Change in Mental Status Sepsis Action Taken by Nursing 08/10/23 13:05 08/10/23 13:05 08/10/23 13:10 Temperature Temperature Source Pulse Rate 127 H Pulse Rate [Apical] Pulse Rate from SpO2 Sensor 125 H Respiratory Rate 23 Respiratory Effort / Characteristics Respiratory Depth Blood Pressure 105/79 116/93 Blood Pressure [Left Arm] Blood Pressure Mean 89 107 Blood Pressure Mean [Left Arm] Pulse Oximetry 98 Oxygen Delivery Method Sepsis Recent Fever Within 48 Hours Sepsis New/Unexplained Change in Mental Status Sepsis Action Taken by Nursing 08/10/23 13:10 08/10/23 13:15 08/10/23 13:15 Temperature Temperature Source Pulse Rate 143 H 138 H Pulse Rate [Apical] Pulse Rate from SpO2 Sensor 133 H 132 H Respiratory Rate 19 14 Respiratory Effort / Characteristics Respiratory Depth Blood Pressure 97/73 L Blood Pressure [Left Arm] Blood Pressure Mean 83 Blood Pressure Mean [Left Arm] Pulse Oximetry 99 98 Oxygen Delivery Method Sepsis Recent Fever Within 48 Hours Sepsis New/Unexplained Change in Mental Status Sepsis Action Taken by Nursing 08/10/23 13:20 08/10/23 13:21 08/10/23 13:21 Temperature Temperature Source Pulse Rate 129 H 127 H Pulse Rate [Apical] Pulse Rate from SpO2 Sensor Respiratory Rate 21 15 Respiratory Effort / Characteristics Respiratory Depth Blood Pressure 104/84 Blood Pressure [Left Arm] Blood Pressure Mean 90 Blood Pressure Mean [Left Arm] Pulse Oximetry 99 Oxygen Delivery Method Sepsis Recent Fever Within 48 Hours Sepsis New/Unexplained Change in Mental Status Sepsis Action Taken by Nursing 08/10/23 13:25 08/10/23 13:26 08/10/23 13:26 Temperature Temperature Source Pulse Rate 134 H Pulse Rate [Apical] 122 H Pulse Rate from SpO2 Sensor Respiratory Rate 14 14 Respiratory Effort / Characteristics Respiratory Depth Blood Pressure 112/88 Blood Pressure [Left Arm] 112/88 Blood Pressure Mean 92 Blood Pressure Mean [Left Arm] 96 Pulse Oximetry 99 95 Oxygen Delivery Method Room Air Sepsis Recent Fever Within 48 Hours Sepsis New/Unexplained Change in Mental Status Sepsis Action Taken by Nursing 08/10/23 13:30 08/10/23 13:30 08/10/23 13:35 Temperature Temperature Source Pulse Rate 157 H Pulse Rate [Apical] Pulse Rate from SpO2 Sensor Respiratory Rate 13 Respiratory Effort / Characteristics Respiratory Depth Blood Pressure 97/64 L 89/71 L Blood Pressure [Left Arm] Blood Pressure Mean 80 73 Blood Pressure Mean [Left Arm] Pulse Oximetry 98 Oxygen Delivery Method Sepsis Recent Fever Within 48 Hours Sepsis New/Unexplained Change in Mental Status Sepsis Action Taken by Nursing 08/10/23 13:35 08/10/23 13:37 08/10/23 13:37 Temperature Temperature Source Pulse Rate 128 H 158 H Pulse Rate [Apical] Pulse Rate from SpO2 Sensor Respiratory Rate 21 Respiratory Effort / Characteristics Respiratory Depth Blood Pressure 95/72 L Blood Pressure [Left Arm] Blood Pressure Mean 79 Blood Pressure Mean [Left Arm] Pulse Oximetry 96 Oxygen Delivery Method Sepsis Recent Fever Within 48 Hours Sepsis New/Unexplained Change in Mental Status Sepsis Action Taken by Nursing 08/10/23 13:40 08/10/23 13:40 08/10/23 13:45 Temperature Temperature Source Pulse Rate 137 H Pulse Rate [Apical] Pulse Rate from SpO2 Sensor Respiratory Rate 17 Respiratory Effort / Characteristics Respiratory Depth Blood Pressure 108/76 96/62 L Blood Pressure [Left Arm] Blood Pressure Mean 100 71 Blood Pressure Mean [Left Arm] Pulse Oximetry 96 Oxygen Delivery Method Sepsis Recent Fever Within 48 Hours Sepsis New/Unexplained Change in Mental Status Sepsis Action Taken by Nursing 08/10/23 13:45 08/10/23 13:50 08/10/23 13:50 Temperature Temperature Source Pulse Rate 132 H 124 H Pulse Rate [Apical] Pulse Rate from SpO2 Sensor 132 H 115 H Respiratory Rate 17 20 Respiratory Effort / Characteristics Respiratory Depth Blood Pressure 93/73 L Blood Pressure [Left Arm] Blood Pressure Mean 81 Blood Pressure Mean [Left Arm] Pulse Oximetry 97 97 Oxygen Delivery Method Sepsis Recent Fever Within 48 Hours Sepsis New/Unexplained Change in Mental Status Sepsis Action Taken by Nursing 08/10/23 14:06 08/10/23 14:08 08/10/23 14:08 Temperature Temperature Source Pulse Rate 134 H 122 H Pulse Rate [Apical] Pulse Rate from SpO2 Sensor Respiratory Rate 13 16 Respiratory Effort / Characteristics Respiratory Depth Blood Pressure 114/81 Blood Pressure [Left Arm] Blood Pressure Mean 84 Blood Pressure Mean [Left Arm] Pulse Oximetry Oxygen Delivery Method Sepsis Recent Fever Within 48 Hours Sepsis New/Unexplained Change in Mental Status Sepsis Action Taken by Nursing 08/10/23 14:10 08/10/23 14:10 08/10/23 14:15 Temperature Temperature Source Pulse Rate 140 H Pulse Rate [Apical] Pulse Rate from SpO2 Sensor Respiratory Rate 16 Respiratory Effort / Characteristics Respiratory Depth Blood Pressure 117/91 106/80 Blood Pressure [Left Arm] Blood Pressure Mean 94 85 Blood Pressure Mean [Left Arm] Pulse Oximetry Oxygen Delivery Method Sepsis Recent Fever Within 48 Hours Sepsis New/Unexplained Change in Mental Status Sepsis Action Taken by Nursing 08/10/23 14:15 08/10/23 14:26 Temperature Temperature Source Pulse Rate 125 H 138 H Pulse Rate [Apical] Pulse Rate from SpO2 Sensor Respiratory Rate 14 Respiratory Effort / Characteristics Respiratory Depth Blood Pressure Blood Pressure [Left Arm] Blood Pressure Mean Blood Pressure Mean [Left Arm] Pulse Oximetry 95 Oxygen Delivery Method Sepsis Recent Fever Within 48 Hours Sepsis New/Unexplained Change in Mental Status Sepsis Action Taken by Nursing Laboratory Data 08/10/23 12:48 08/10/23 12:48 Lab Results 08/10/23 08/10/23 08/10/23 Range/Units 12:48 12:53 12:57 WBC 9.95 (4.8-10.8) K/ul RBC 5.76 (4.70-6.10) M/uL Hgb 16.8 (14.0-18.0) g/dl POC Hgb 17.3 (14.0-18.0) g/dl Hct 50.3 (42.0-52.0) % POC Hct 51 (42-52) % MCV 87.3 (80.0-100.0) fL MCH 29.2 (25.0-34.0) pg MCHC 33.4 (32.0-36.0) g/dL RDW Std Deviation 47.9 H (36.4-46.3) fL RDW Coeff of Kassandra 15.0 H (11.5-14.5) % Plt Count 222 (130-400) K/uL MPV 10.2 (9.4-12.4) fL Immature Gran % (Auto) 0.3 % Neut % (Auto) 80.6 % Lymph % (Auto) 6.3 % Dillon % (Auto) 12.1 % Eos % (Auto) 0.2 % Baso % (Auto) 0.5 % Neut # (Auto) 8.02 H (1.40-6.50) K/uL Lymph # (Auto) 0.63 L (1.20-3.40) K/uL Dillon # (Auto) 1.20 H (0.11-0.59) K/uL Eos # (Auto) 0.02 (0.00-0.50) K/uL Baso # (Auto) 0.05 (0.00-0.20) K/uL Immature Gran # (Auto) 0.03 (0.01-0.20) K/uL POC Sodium 138 (135-144) mmol/L Sodium 137 (136-145) mmol/L POC Potassium 4.1 (3.3-5.0) mmol/L Potassium 4.1 (3.5-5.1) mmol/L POC Chloride 104 (101-112) mmol/L Chloride 104 (98-107) mmol/L Carbon Dioxide 23 (21-32) mmol/L POC Total CO2 25 (24-31) mmol/L Anion Gap 10 (3-11) POC Anion Gap 14.0 L (16-25) mmol/L POC BUN 13 (7-18) mg/dl BUN 12 (6-23) mg/dl Creatinine 1.04 (0.6-1.4) mg/dl POC Creatinine 1.0 (0.6-1.3) mg/dl Est Cr Clr Drug Dosing 64.8 ml/min Est GFR ( Amer) 87.5 ml/min Est GFR (Non-Af Amer) 75.5 ml/min BUN/Creatinine Ratio 11.5 (10-20) Glucose 111 H (70-99(Fasting)) mg/dl POC Glucose (other) 110 H (70-99) mg/dl Calcium 9.6 (8.6-10.3) mg/dl POC Ioniz Calcium Sebastián 1.17 (1.12-1.32) mmol/l Magnesium 1.9 (1.7-2.4) mg/dl Troponin I High Sens 6.7 (0-20) pg/ml B-Natriuretic Peptide 27 (0-100) pg/ml Adenovirus (PCR) Not Detected (NotDetected) B. pertussis DNA (PCR) Not Detected (NotDetected) B.parapertussis DNA PCR Not Detected (NotDetected) C. pneumoniae DNA (PCR) Not Detected (NotDetected) Coronavirus OC43 (PCR) Not Detected (NotDetected) Coronavirus HKU1 (PCR) Not Detected (NotDetected) Coronavirus 229E (PCR) Not Detected (NotDetected) SARS-CoV-2 (PCR) Not Detected (NotDetected) Coronavirus NL63 (PCR) Not Detected (NotDetected) Human Metapneumovir PCR Not Detected (NotDetected) Influenza A (H3) PCR DETECTED A* (NotDetected) Influenza Type B (PCR) Not Detected (NotDetected) M. pneumoniae (PCR) Not Detected (NotDetected) Parainfluenza 1 (PCR) Not Detected (NotDetected) Parainfluenza 2 (PCR) Not Detected (NotDetected) Parainfluenza 3 (PCR) Not Detected (NotDetected) Parainfluenza 4 (PCR) Not Detected (NotDetected) RSV (PCR) Not Detected (NotDetected) Entero/Rhino (PCR) Not Detected (NotDetected) Administered Medications Discontinued Medications Diltiazem HCl (Diltiazem Hcl 5 Mg/Ml 5 Ml Vial) Confirm Administered Dose 25 mg IV .STK-MED ONE Stop: 08/10/23 12:49 Last Increment: 08/10/23 12:51 Dose: 20 mg Documented By: CUCO Co-signed By: CC Magnesium Sulfate/Dextrose (Magnesium Sulfate / D5w) 1 gm in 100 mls @ 200 mls/hr IV Q30M LANA Stop: 08/10/23 14:06 Last Infusion: 08/10/23 14:21 Dose: Infused Documented By: Admin: 08/10/23 13:51 Dose: 200 mls/hr Documented By: Infusion: 08/10/23 13:45 Dose: Infused Documented By: Admin: 08/10/23 13:15 Dose: 200 mls/hr Documented By: ML Digoxin 500 mcg/ Syringe 10 mls @ 2 mls/min IV NOW STA Stop: 08/10/23 14:18 Last Admin: 08/10/23 14:26 Dose: 2 mls/min Documented By: ML Ioversol (Optiray 320 125ml) 116 ml IV ONCE ONE Stop: 08/10/23 14:02 Last Admin: 08/10/23 14:01 Dose: 116 ml Documented By: EDK Oseltamivir Phosphate (Oseltamivir Phosphate 75 Mg Cap) 75 mg PO ONE ONE; Protocol Stop: 08/10/23 16:16 Last Admin: 08/10/23 17:07 Dose: 75 mg Documented By: AB Imaging Data Radiologist's Impression: Chest X-Ray 08/10/23 13:01 XR chest 1V portable CLINICAL HISTORY: Shortness of breath. Atrial fibrillation. COMPARISON STUDY: Chest CT September 08, 2019. Chest radiograph February 25, 2023. FINDINGS: No pneumothorax or pleural effusion is identified. There is no consolidation to suggest pneumonia. Cardiomegaly is unchanged. No evidence for overt pulmonary edema. IMPRESSION: No acute cardiopulmonary findings. Cardiomegaly. ACT 112: Negative or not required by law. Electronically signed by: Ludwin Meyer M.D. 08/10/2023 1:50 PM Chest CTA 08/10/23 13:47 CT ANGIOGRAPHY OF THE CHEST, PULMONARY EMBOLUS PROTOCOL CLINICAL HISTORY: Shortness of breath. Atrial fibrillation. Evaluate for pulmonary embolus. COMPARISON STUDY: Chest CT September 08, 2019. Chest radiograph performed earlier today. TECHNIQUE: Following IV administration of 116 mL of Optiray, helical axial images of the chest were obtained utilizing the pulmonary embolus protocol. Maximal intensity projections and sagittal and coronal reformats were viewed on an independent 3D workstation. IV contrast was administered without complication. Automated exposure control was utilized for the study. A dose lowering technique was utilized adhering to the principles of ALARA. CT DOSE: 750.92 mGy.cm FINDINGS: No pulmonary emboli are identified. There is no thoracic aortic dissection. There is moderate cardiomegaly. No pericardial effusion is present. Postoperative findings at the GE junction are noted. There is no pneumothorax or pleural effusion. No consolidation is identified to suggest pneumonia. A 5 mm right lower lobe nodule on image 68 of [address] of September 08, 2019. This is benign. Subpleural opacities represent atelectasis. No acute fractures within the bony thorax. There are gallstones within the gallbladder. No convincing evidence for acute cholecystitis. IMPRESSION: 1. No pulmonary emboli identified. 2. No acute intrathoracic findings. 3. Moderate cardiomegaly. ACT 112: Negative or not required by law. Electronically signed by: Ludwin Meyer M.D. 08/10/2023 2:29 PM Discharge Plan Visit Data Chief Complaint: Asthma Stated Complaint: Asthma ATTACK ED Provider: Keila Esposito Discharge Problem: Influenza A, Atrial fibrillation with rapid ventricular response Patient Disposition: Admitted As Inpatient Discharge Instructions Interventions: ED Discharge Assessment Last Done: 08/10/23 17:56
[2023-08-10 13:09] LABS: iSTAT Hemoglobin 17.3 g/dl (14.0-18.0); iSTAT Ionized Calcium 1.17 mmol/l (1.12-1.32); iSTAT Potassium 4.1 mmol/L (3.3-5.0)
[2023-08-10] MEDS: MAGNESIUM SULFATE / D5W 1 GM/100 ML BAG IV SCH ×2 (13:15→13:51)
[2023-08-10 13:33] LABS: Basophils # (auto) 0.05 K/uL (0.00-0.20); Basophils % (auto) 0.5 %; Eosinophils # (auto) 0.02 K/uL (0.00-0.50); Eosinophils % (auto) 0.2 %; Hematocrit (blood only) 50.3 % (42.0-52.0); Hemoglobin 16.8 g/dl (14.0-18.0); Immature Granulocytes # (auto) 0.03 K/uL (0.01-0.20); Immature Granulocytes % (auto) 0.3 %; Lymphocytes # (auto) 0.63 K/uL (1.20-3.40); Lymphocytes % (auto) 6.3 %; Mean Corpuscular Hemoglobin 29.2 pg (25.0-34.0); Mean Corpuscular Hgb Conc 33.4 g/dL (32.0-36.0); Mean Corpuscular Volume 87.3 fL (80.0-100.0); Mean Platelet Volume 10.2 fL (9.4-12.4); Monocytes % (auto) 12.1 %; Neutrophils # (auto) 8.02 K/uL (1.40-6.50); Neutrophils % (auto) 80.6 %; Platelet Count 222 K/uL (130-400); RDW Standard Deviation 47.9 fL (36.4-46.3); Red Blood Count 5.76 M/uL (4.70-6.10); White Blood Count 9.95 K/ul (4.8-10.8)
[2023-08-10 13:38] LABS: BUN Creatinine Ratio 11.5 (10-20); Calcium 9.6 mg/dl (8.6-10.3); Creatinine Clr Calc Pharmacy 64.8 ml/min; Est GFR (African American) 87.5 ml/min; Est GFR (Non-African American) 75.5 ml/min; Potassium 4.1 mmol/L (3.5-5.1)
[2023-08-10 13:45] LABS: Troponin I High Sensitivity 6.7 pg/ml (0-20)
--- NOTE | 2023-08-10 13:52 | XRay Report ---
XR chest 1V portable CLINICAL HISTORY: Shortness of breath. Atrial fibrillation. COMPARISON STUDY: Chest CT September 08, 2019. Chest radiograph February 25, 2023. FINDINGS: No pneumothorax or pleural effusion is identified. There is no consolidation to suggest pne umonia. Cardiomegaly is unchanged. No evidence for overt pulmonary edema. IMPRESSION: No acute cardiopulmonary findings. Cardiomegaly. ACT 112: Negative or not required by law. Electronically signed by: Ludwin Meyer M.D. 08/10/2023 1:50 PM
[2023-08-10] MEDS ORDERED: OPTIRAY 320 125ml IV ONE (14:01)
[2023-08-10 14:07] LABS: Adenovirus PCR Not Detected (NotDetected); Bordetella parapertussis PCR Not Detected (NotDetected); Bordetella pertussis PCR Not Detected (NotDetected); Chlamydia pneumoniae PCR Not Detected (NotDetected); Coronavirus 229E PCR Not Detected (NotDetected); Coronavirus CoV-2 (COVID19)PCR Not Detected (NotDetected); Coronavirus HKU1 PCR Not Detected (NotDetected); Coronavirus NL63 PCR Not Detected (NotDetected); Coronavirus OC43PCR Not Detected (NotDetected); Human Metapneumovirus PCR Not Detected (NotDetected); Influenza B PCR Not Detected (NotDetected); Mycoplasma pneumoniae PCR Not Detected (NotDetected); Parainfluenza Virus 1 PCR Not Detected (NotDetected); Parainfluenza Virus 2 PCR Not Detected (NotDetected); Parainfluenza Virus 3 PCR Not Detected (NotDetected); Parainfluenza Virus 4 PCR Not Detected (NotDetected); Respiratory Syncytial VirusPCR Not Detected (NotDetected); Rhinovirus/Enterovirus PCR Not Detected (NotDetected)
[2023-08-10] MEDS ORDERED: DIGOXIN 500 MCG in SYRINGE 0 ML IV ONE (14:07)
[2023-08-10 14:13] LABS: Influenza A (H3) PCR DETECTED (NotDetected)
[2023-08-10] MEDS ORDERED: DIGOXIN 500 MCG in SYRINGE 8 ML IV STA (14:14)
[2023-08-10 14:29] LABS: Magnesium 1.9 mg/dl (1.7-2.4)
--- NOTE | 2023-08-10 14:31 | CT Scan Report ---
CT ANGIOGRAPHY OF THE CHEST, PULMONARY EMBOLUS PROTOCOL CLINICAL HISTORY: Shortness of breath. Atrial fibrillation. Evaluate for pulmonary embolus. COMPARISON STUDY: Chest CT September 08, 2019. Chest radiograph performed earlier today. TECHNIQUE: Following IV administration of 116 mL of Optiray, helical axial images of the chest were o btained utilizing the pulmonary embolus protocol. Maximal intensity projections and sagittal and cor onal reformats were viewed on an independent 3D workstation. IV contrast was administered without co mplication. Automated exposure control was utilized for the study. A dose lowering technique was ut ilized adhering to the principles of ALARA. CT DOSE: 750.92 mGy.cm FINDINGS: No pulmonary emboli are identified. There is no thoracic aortic dissection. There is moder ate cardiomegaly. No pericardial effusion is present. Postoperative findings at the GE junction are n oted. There is no pneumothorax or pleural effusion. No consolidation is identified to suggest pneumon ia. A 5 mm right lower lobe nodule on image 68 of [address] of September 08, 2019. This is benign. Subpleural opacities represent atelectasis. No acute fractures within the bony thorax. Th ere are gallstones within the gallbladder. No convincing evidence for acute cholecystitis. IMPRESSION: 1. No pulmonary emboli identified. 2. No acute intrathoracic findings. 3. Moderate cardiomegaly. ACT 112: Negative or not required by law. Electronically signed by: Ludwin Meyer M.D. 08/10/2023 2:29 PM
--- NOTE | 2023-08-10 14:37 | History & Physical Report ---
Date of Service August 10, 2023 Assessment & Plan (1) New onset a-fib: Plan: New onset A-fib RVR No prior known history of A-fib, patient has had history of palpitations with sinus Unclear duration of his A-fib. Most likely developed in the last 24 hours, but no sinus rhythm or point of conversion is documented and patient has not been on anticoagulation Anticoagulation for A-fib prophylaxis with heparin GTT initiated, target transition to DOAC if doing well Patient hypotensive following diltiazem, additional CCB/metoprolol limited by blood pressure. Beta-samantha initially deferred while in ER due to concurrent asthma. Amiodarone not recommended due to risk of conversion stroke with unknown duration of A-fib. Patient received 5 mg of digoxin for rate control. Patient converted to sinus rhythm, confirmed by EKG at 2:48 PM. No stroke symptoms. Feels well and normotensive subsequent to convert [id number] score of 1 for gender, hypertension history although will get an additional point for age in 3 months. Does have a history of GI bleed via Cora-Cage tear, this was 4 months ago and was clipped and presumably healed. Discussed ongoing stroke prophylaxis for paroxysmal A-fib. He is moderate risk, unclear if he has had underlying A-fib and certainly process episode may have been provoked by both borderline low magnesium, albuterol use, and influenza A. Patient has symptoms been in and out of A-fib before this based on similar symptoms at rest that he has never checked out, and shared decision making discussing both the risk of bleeding, his history of GI bleeding, and risk of cardioembolic stroke will start Eliquis 5mg BID A-fib prophylaxis and follow-up with 30-day heart monitor to reevaluate A-fib burden. Losartan dose reduced, metoprolol tartrate 12.5 mg twice daily started (2) Asthma: Plan: Allergic asthma Follows with asthma and pulmonology Continue home inhalers with the exception of albuterol which she is switched to Xopenex as needed Patient reports this has been well-controlled with minimal flares/exacerbations, suspect acute exacerbation due to flu CTA without PE or acute findings Bio fire positive for flu is noted Albuterol converted to Xopenex, methylprednisolone 40 mg daily (3) Influenza A: Plan: Flu a positive with current asthma exacerbation Tamiflu as noted (4) Cora-Cage tear: Plan: GERD/history of GI bleed Protonix continued No history of recurrent bleeding/melena since admission approximately 4 months (5) Vasovagal episode: Plan: Doing well, no recent vasovagal syncope (6) Vertebral artery stenosis: (7) Hypertension: Plan: Hypertension Losartan held for hypotension, dose reduce when resumed due to bb addition Renal function at baseline Plan DVT PPx: DOAC Dispo: PCU CODE: Full DIet: HH History of Present Illness Primary Care Provider: Reilly Yun Carlos Dumont is a 62-year-old male with past medical history of anemia, GI bleed, asthma, vertebral artery stenosis, stable pulmonary nodules, ureteral calculi with history of cystoscopy/lithotripsy, and palpitations without known A-fib who presents to the ER with 2 days of cough, chills, and increased wheezing for which she has been taking his albuterol nebulizer but who had his heart racing this morning came in for evaluation. He is found to have new A-fib with RVR likely induced by URI with albuterol. While in the ER rates [id number], patient was given diltiazem 20 mg with subsequent mild rate improvement but hypotension 90s/70s patient's last stress echo 04/2022 with no signs of ischemia on echo/EKG at 96% max heart rate and with normal biventricular systolic function, mild LAD, trace mitral regurg, trace tricuspid regurg, and trace pulmonic regurg. He does not have known systolic failure. Potassium 4.1, magnesium pending. High sensitive troponin is normal, BNP is normal. No history of DVT/PE. [employer] positive for flu Carlos reports that he has had a cough general fatigue and some muscle cramping for 2 days. When he woke up this morning he could feel his heart racing and while laying on a pillow could hear his heartbeat in his ear which was very fast. He reports he thinks he has had palpitations and fast heart rate intermittently before, but was much more aware of at this time. He has no chest pain, chest pressure, lightheadedness, or dizziness. He has had increased wheezing for 2 days and has been using his home albuterol nebulizer, 3 times yesterday and once this morning. This does improve his wheezing. He is not currently short of breath. He sees Dr. Adin for allergic asthma which up until this past week has been extremely well-controlled and he has not needed any inhalers for the preceding few months. He feels similar to when he had flu over a year ago, and his flu a positive on admission. He is noted to be in A- fib RVR in the ER, denies past history of A-fib but thinks he has been and intermittently has the feeling in his chest this morning similar to episodes he has had previously which have always gone away with time. No history of stroke. Last stress echo was normal with no signs of ischemia Medical History: Reviewed Medications: Reviewed Surgical History: Reviewed Family history: Reviewed Allergies: Reviewed Social History: No tobacco, social alcohol use Code Status: Full code Allergies Allergy/AdvReac Type Severity Reaction Status Date / Time amoxicillin [From Augmentin] AdvReac Unknown Gastrointestinal Verified 04/17/23 09:41 Upset clavulanic acid AdvReac Unknown Gastrointestinal Verified 04/17/23 09:41 [From Augmentin] Upset erythromycin base AdvReac Unknown Gastrointestinal Verified 04/17/23 09:41 Upset Home Medications Medication Instructions Recorded Confirmed Type loratadine 10 mg capsule 10 mg PO QAM 03/31/19 04/17/23 History ipratropium 0.5 mg-albuterol 3 mg 3 ml inhalation QID PRN Shortness 12/17/19 04/17/23 Rx (2.5 mg base)/3 mL nebulization Of Breath Or Wheezing 90 days #360 soln vials pyridoxine (vitamin B6) 500 mg 0 mg PO HS 01/22/22 04/17/23 History tablet albuterol sulfate 90 mcg/actuation 2 puff inhalation QID PRN Wheezing 02/20/22 04/17/23 Rx aerosol inhaler #18 grams valacyclovir 1 gram tablet 2 mg PO DIRECTED PRN Cold Sores 04/08/22 04/17/23 History epinephrine 0.3 mg/0.3 mL 0.3 mg (0.3 mL) IM Q4H PRN 05/14/22 04/17/23 Rx injection, auto-injector anaphylaxis #2 ea fluticasone furoate 200 1 inh inhalation QAM #3 Inhalers 08/27/22 04/17/23 Rx mcg-vilanterol 25 mcg/dose inhalation powder (Breo Ellipta) hydrocortisone 2.5 % topical cream 1 applic topical DAILY PRN hemmroid 02/25/23 04/17/23 History vitamin E 268 mg (400 unit) capsule 268 mg PO QAM 02/25/23 04/17/23 History hydrocortisone acetate 25 mg 25 mg NH HS PRN hemorrhoids #12 ea 02/28/23 04/17/23 Rx rectal suppository (Anusol-HC) ondansetron 4 mg disintegrating 4 mg PO Q6H PRN nausea and 02/28/23 04/17/23 Rx tablet vomiting #10 tabs triamcinolone acetonide 55 mcg 1 spray intranasal QAM 03/21/23 04/17/23 History nasal spray aerosol (Nasacort) docusate sodium 100 mg capsule 100 mg PO HS 03/25/23 04/17/23 History (Colace) ciprofloxacin HCl 500 mg tablet 500 mg PO BID #6 tabs 04/02/23 04/17/23 Rx (Cipro) tramadol 50 mg tablet 50 mg PO Q6H PRN pain #20 tabs 04/02/23 04/17/23 Rx losartan 50 mg tablet 50 mg PO DAILY #90 tabs 04/15/23 04/17/23 Rx pantoprazole 40 mg tablet,delayed 40 mg PO DAILY #90 tabs 04/15/23 04/17/23 Rx release (Protonix) montelukast 10 mg tablet See Rx Instructions .Route 06/17/23 Rx .COMPLEX #90 tabs omalizumab 150 mg/mL subcutaneous 150 mg subcut .COMPLEX #1 mL 08/05/23 Rx syringe (Xolair) Past Med/Surg History Medical History (Updated 08/10/23 @ 15:40 by Rodney Valle MD) Cora-Cage tear 02/25/23 Hx MRSA infection 12-15 yrs ago; unsure where; BCC (basal cell carcinoma of skin) excision left calf Environmental and seasonal allergies History of COVID-19 03/2022- fever, chills, head congestion; resolved History of airway aspiration aspirated after colonoscopy 10/2022 - PSH Hx of hiatal hernia x 3 Allergy desensitization therapy receives allergy shots Bladder stone Allergic rhinitis Vertebral artery stenosis "hemodynamically significant stenosis of the left vertebral artery at the level of the C4. There is compensatory enlargement of a branch vessel proximal to this stenosis." Hypertension Multiple lung nodules on CT Asthma well controlled w/ inhaler use and xolair injections; has not used neb in ~6 mos, and uses rescue inhaler ~ 2 times a month, mostly r/t weather Surgical History History of esophagogastroduodenoscopy (EGD) Hx of colonoscopy Hx of foot surgery torn achilles History of tonsillectomy History of mastoidectomy History of appendectomy Family History Father Stroke Hypertension Lung cancer Mother Allergies Hypertension Hearing loss Social History Smoking Status: Never smoker Second Hand Exposure: No; Do You Dip or Chew Tobacco: No; Hx Alcohol Use: Yes Alcohol type: beer and wine Hx Substance Use: No Preferred Language: Maori Communication Ability: Effective Tack Maker Required: No Beliefs That Will Affect Care: None marital status: Current Living Situation: Spouse Feels Safe at Home: Yes Assistive Devices: Glasses and Nebulizer Physical Exam Physical Exam: General: A&Ox3. NAD. Cooperative. HEENT: Atraumatic, normocephalic. Vision/hearing intact Pulm: Good air movement, end expiratory wheezes diffusely are present sy mmetrical chest rise. No increased work of breathing. No respiratory distress. Cardiac: RRR, -mrg. Radial pulses intact and symmetrical. Previously in rapid irregular Abdominal: Nontender, nondistended, soft. BS present. Extremities: Warm, dry no with Results & Data Results & Data Vital Signs (Past 12 Hours) Vital Signs Temp Pulse Pulse Resp BP BP Pulse Ox 08/10/23 14:26 138 H 08/10/23 14:15 125 H 14 95 08/10/23 14:15 106/80 08/10/23 14:10 140 H 16 08/10/23 14:10 117/91 08/10/23 14:08 122 H 16 08/10/23 14:08 114/81 08/10/23 14:06 134 H 13 08/10/23 13:50 124 H 20 97 08/10/23 13:50 93/73 L 08/10/23 13:45 132 H 17 97 08/10/23 13:45 96/62 L 08/10/23 13:40 137 H 17 96 08/10/23 13:40 108/76 08/10/23 13:37 158 H 21 96 08/10/23 13:37 95/72 L 08/10/23 13:35 128 H 08/10/23 13:35 89/71 L 08/10/23 13:30 157 H 13 98 08/10/23 13:30 97/64 L 08/10/23 13:26 134 H 14 95 08/10/23 13:26 112/88 08/10/23 13:25 122 H 14 112/88 99 08/10/23 13:21 104/84 08/10/23 13:21 127 H 15 99 08/10/23 13:20 129 H 21 08/10/23 13:15 97/73 L 08/10/23 13:15 138 H 14 98 08/10/23 13:10 143 H 19 99 08/10/23 13:10 116/93 08/10/23 13:05 105/79 08/10/23 13:05 127 H 23 98 08/10/23 13:00 136 H 16 99 08/10/23 13:00 95/67 L 08/10/23 12:58 130 H 17 99 08/10/23 12:58 94/68 L 08/10/23 12:57 98 08/10/23 12:56 124 H 16 99 08/10/23 12:56 78/62 L 08/10/23 12:55 127 H 15 93 08/10/23 12:55 74/56 L 08/10/23 12:52 162 H 08/10/23 12:50 168 H 17 99 08/10/23 12:36 36.7 C 175 H 20 99/59 L 94 O2 Del Method 08/10/23 14:26 08/10/23 14:15 08/10/23 14:15 08/10/23 14:10 08/10/23 14:10 08/10/23 14:08 08/10/23 14:08 08/10/23 14:06 08/10/23 13:50 08/10/23 13:50 08/10/23 13:45 08/10/23 13:45 08/10/23 13:40 08/10/23 13:40 08/10/23 13:37 08/10/23 13:37 08/10/23 13:35 08/10/23 13:35 08/10/23 13:30 08/10/23 13:30 08/10/23 13:26 08/10/23 13:26 08/10/23 13:25 Room Air 08/10/23 13:21 08/10/23 13:21 08/10/23 13:20 08/10/23 13:15 08/10/23 13:15 08/10/23 13:10 08/10/23 13:10 08/10/23 13:05 08/10/23 13:05 08/10/23 13:00 08/10/23 13:00 08/10/23 12:58 08/10/23 12:58 08/10/23 12:57 Room Air 08/10/23 12:56 08/10/23 12:56 08/10/23 12:55 08/10/23 12:55 08/10/23 12:52 08/10/23 12:50 08/10/23 12:36 Room Air PG Care Time/CCT Total # of Minutes Spent Total Time Spent with Patient: Total time spent is greater than 50% in coordination of care (as documented) at patient's floor/unit and/or counseling patient: Coding Level of Care Code 24605 INT INP/OBS CARE 3/75MIN Diagnoses New onset a-fib I48.91 Asthma J45.909 Asthma complication type: unspecified Asthma persistence: unspecified Asthma severity: moderate Influenza A J10.1 Cora-Cage tear K22.6 Vasovagal episode R55 Vertebral artery stenosis I65.09 Hypertension I10 (2) Asthma Asthma complication type: unspecified Asthma persistence: unspecified Asthma severity: moderate Qualified Code(s): J45.909 - Unspecified asthma, uncomplicated
[2023-08-10] MEDS ORDERED: ACETAMINOPHEN 325 MG TAB PO PRN (15:34)
[2023-08-10] MEDS ORDERED: LEVALBUTEROL 1.25 MG/3 ML NEB NEB PRN (15:37)
[2023-08-10] MEDS ORDERED: OSELTAMIVIR PHOSPHATE 75 MG CAP PO ONE (16:15)
[2023-08-10] MEDS ORDERED: traMADol HCL 50 MG TABLET PO PRN (17:55)
[2023-08-10] MEDS: OSELTAMIVIR PHOSPHATE 75 MG CAP PO SCH (21:07)
[2023-08-10] MEDS: METOPROLOL TARTRATE 25 MG TAB PO SCH (21:08)
[2023-08-10] MEDS: APIXABAN 5 MG TABLET PO SCH (21:09)
[2023-08-11 07:54] LABS: Basophils # (auto) 0.03 K/uL (0.00-0.20); Basophils % (auto) 0.5 %; Eosinophils % (auto) 1.6 %; Hematocrit (blood only) 45.5 % (42.0-52.0); Hemoglobin 15.1 g/dl (14.0-18.0); Immature Granulocytes # (auto) 0.02 K/uL (0.01-0.20); Immature Granulocytes % (auto) 0.3 %; Lymphocytes # (auto) 1.13 K/uL (1.20-3.40); Lymphocytes % (auto) 18.2 %; Mean Corpuscular Hemoglobin 29.3 pg (25.0-34.0); Mean Corpuscular Hgb Conc 33.2 g/dL (32.0-36.0); Mean Corpuscular Volume 88.2 fL (80.0-100.0); Mean Platelet Volume 10.4 fL (9.4-12.4); Monocytes # (auto) 1.45 K/uL (0.11-0.59); Monocytes % (auto) 23.3 %; Neutrophils # (auto) 3.49 K/uL (1.40-6.50); Neutrophils % (auto) 56.1 %; Platelet Count 183 K/uL (130-400); RDW Coefficient of Variation 15.1 % (11.5-14.5); Red Blood Count 5.16 M/uL (4.70-6.10); White Blood Count 6.22 K/ul (4.8-10.8)
[2023-08-11 07:57] LABS: BUN Creatinine Ratio 10.8 (10-20); Calcium 8.8 mg/dl (8.6-10.3); Creatinine Clr Calc Pharmacy 62.9 ml/min; Est GFR (African American) 80.9 ml/min; Est GFR (Non-African American) 69.8 ml/min; Magnesium 2.1 mg/dl (1.7-2.4); Potassium 4.3 mmol/L (3.5-5.1)
[2023-08-11] MEDS: METOPROLOL TARTRATE 25 MG TAB PO SCH (08:50)
[2023-08-11] MEDS: APIXABAN 5 MG TABLET PO SCH (08:51)
[2023-08-11] MEDS: OSELTAMIVIR PHOSPHATE 75 MG CAP PO SCH (08:51)
[2023-08-11] MEDS ORDERED: FLUTICASONE/VILANTEROL 200/25MCG 14 PUFFS/INHALER INH SCH (09:00)
[2023-08-11] MEDS ORDERED: methylPREDNISolone 40 MG in SYRINGE 0 ML IV SCH (09:00)
--- NOTE | 2023-08-11 11:55 | Discharge Summary ---
Date of Service August 11, 2023 Admission HPI Per Admitting Provider Carlos Dumont is a 62-year-old male with past medical history of anemia, GI bleed, asthma, vertebral artery stenosis, stable pulmonary nodules, ureteral calculi with history of cystoscopy/lithotripsy, and palpitations without known A-fib who presents to the ER with 2 days of cough, chills, and increased wheezing for which she has been taking his albuterol nebulizer but who had his heart racing this morning came in for evaluation. He is found to have new A-fib with RVR likely induced by URI with albuterol. While in the ER rates [id number], patient was given diltiazem 20 mg with subsequent mild rate improvement but hypotension 90s/70s patient's last stress echo 04/2022 with no signs of ischemia on echo/EKG at 96% max heart rate and with normal biventricular systolic function, mild LAD, trace mitral regurg, trace tricuspid regurg, and trace pulmonic regurg. He does not have known systolic failure. Potassium 4.1, magnesium pending. High sensitive troponin is normal, BNP is normal. No history of DVT/PE. Bio fire positive for flu Carlos reports that he has had a cough general fatigue and some muscle cramping for 2 days. When he woke up this morning he could feel his heart racing and while laying on a pillow could hear his heartbeat in his ear which was very fast. He reports he thinks he has had palpitations and fast heart rate intermittently before, but was much more aware of at this time. He has no chest pain, chest pressure, lightheadedness, or dizziness. He has had increased wheezing for 2 days and has been using his home albuterol nebulizer, 3 times yesterday and once this morning. This does improve his wheezing. He is not currently short of breath. He sees Dr. Oakley for allergic asthma which up until this past week has been extremely well-controlled and he has not needed any inhalers for the preceding few months. He feels similar to when he had flu over a year ago, and his flu a positive on admission. He is noted to be in A- fib RVR in the ER, denies past history of A-fib but thinks he has been and intermittently has the feeling in his chest this morning similar to episodes he has had previously which have always gone away with time. No history of stroke. Last stress echo was normal with no signs of ischemia Medical History: Reviewed Medications: Reviewed Surgical History: Reviewed Family history: Reviewed Allergies: Reviewed Social History: No tobacco, social alcohol use Code Status: Full code Principal Diagnosis Flu A, New Afib RVR Discharge Exam General: A&Ox3. NAD. Cooperative. HEENT: Atraumatic, normocephalic. Pulm: CTAB A&P. -wheezes, -rales, -rhonchi. Symmetrical chest rise. No increased work of breathing. No respiratory distress. Cardiac: RRR, -mrg. Radial pulses intact and symmetrical. Abdominal: Nontender, nondistended, soft. BS present. Discharge Data Allergies Allergy/AdvReac Type Severity Reaction Status Date / Time amoxicillin [From Augmentin] AdvReac Unknown Gastrointestinal Verified 08/10/23 15:52 Upset clavulanic acid AdvReac Unknown Gastrointestinal Verified 08/10/23 15:52 [From Augmentin] Upset erythromycin base AdvReac Unknown Gastrointestinal Verified 08/10/23 15:52 Upset Consultations 08/10/23 14:59 ED Decision to Admit Stat Ordered Studies 08/10/23 13:47 CT angio chest PE protocol Stat Hospital Course (1) New onset a-fib: Hospital course summary: Carlos is a 62-year-old male with a past history of GI bleeding due to Cora- Cage tear many months ago successfully repaired without ongoing bleeding who presented with A-fib RVR, new onset, likely precipitated by influenza A and multiple doses of albuterol. He had not been anticoagulated previously, was started on Eliquis. He received diltiazem for rate control with hypotension and subsequently started a dig load however converted to sinus rhythm while in the E R. He showed no signs of cardio Bolick stroke during admission. He maintained sinus rhythm up until time of discharge. Patient did report that he feels that the palpitations he noticed with A-fib while ill today are similar to feelings he has had and palpitations in his chest prior to this, but has not sought evaluation for these as they always went away and he has never had chest pain or chest pressure with them. Unclear if he has had multiple episodes of paroxysmal A-fib. As such patient was started on metoprolol tartrate twice daily (preferred to continue the twice daily dosing in case of side effects rather than consolidating to succinate), and after extended risk/benefits discussion of stroke prophylaxis for a [id number] of 1 which would increase to 2 and 3 months based on age patient was placed on Eliquis anticoagulation. As this was his first documented episode of A-fib with unclear burden and may have been provoked by A-fib he was discharged to be set up with a 30-day mobile ekg monitor with follow-up to cardiology for additional recommendations regarding rate control anticoagulation. As he was increased risk due to history of asthma and with his A-fib and was influenza A with 48-hour of symptoms he was placed on Tamiflu and discharged to complete a 5-day course. He was clinically well and at his normal baseline with the exception of some fatigue and cough at time of discharge. He did not show any signs of volume overload or CHF. CTA did not show any dense of provoking DVT/PE. To do as outpatient: Continue metoprolol tartrate 12.5 mg twice daily Continue Eliquis twice daily Complete 30-day Holter monitor to evaluate A-fib burden. Follow-up with cardiology as noted above Losartan held to allow for metoprolol and blood pressure was low normal on this, if blood pressure is high may resume losartan Progress note included below for complete New onset A-fib RVR No prior known history of A-fib, patient has had history of palpitations with sinus Unclear duration of his A-fib. Most likely developed in the last 24 hours, but no sinus rhythm or point of conversion is documented and patient has not been on anticoagulation Anticoagulation for A-fib prophylaxis with heparin GTT initiated, target transition to DOAC if doing well Patient hypotensive following diltiazem, additional CCB/metoprolol limited by blood pressure. Beta-samantha initially deferred while in ER due to concurrent asthma. Amiodarone not recommended due to risk of conversion stroke with unknown duration of A-fib. Patient received 5 mg of digoxin for rate control. Patient converted to sinus rhythm, confirmed by EKG at 2:48 PM. No stroke symptoms. Feels well and normotensive subsequent to convert [id number] score of 1 for gender, hypertension history although will get an additional point for age in 3 months. Does have a history of GI bleed via Cora-Cage tear, this was 4 months ago and was clipped and presumably healed. Discussed ongoing stroke prophylaxis for paroxysmal A-fib. He is moderate risk, unclear if he has had underlying A-fib and certainly process episode may have been provoked by both borderline low magnesium, albuterol use, and influenza A. Patient has symptoms been in and out of A-fib before this based on similar symptoms at rest that he has never checked out, and shared decision making discussing both the risk of bleeding, his history of GI bleeding, and risk of cardioembolic stroke will start Eliquis 5mg BID A-fib prophylaxis and follow-up with 30-day heart monitor to reevaluate A-fib burden. Losartan dose reduced, metoprolol tartrate 12.5 mg twice daily started (2) Asthma: Allergic asthma Follows with asthma and pulmonology Continue home inhalers with the exception of albuterol which she is switched to Xopenex as needed Patient reports this has been well-controlled with minimal flares/exacerbations, suspect acute exacerbation due to flu CTA without PE or acute findings Bio fire positive for flu is noted Albuterol converted to Xopenex, methylprednisolone 40 mg daily (3) Influenza A: Flu a positive with current asthma exacerbation Tamiflu as noted (4) Cora-Cage tear: GERD/history of GI bleed Protonix continued No history of recurrent bleeding/melena since admission approximately 4 months (5) Vasovagal episode: Doing well, no recent vasovagal syncope (6) Vertebral artery stenosis: (7) Hypertension: Hypertension Losartan held for hypotension, dose reduce when resumed due to bb addition Renal function at baseline Plan DVT PPx: DOAC Dispo: PCU CODE: Full DIet: HH Total Time Total Time Spent Total Time Spent (In Minutes): Time spend day of discharge 45 minutes including direct patient care, documentation, review of labs and images, and coordination of care. Discharge Plan Discharge Items Patient Disposition: Home - Self-Care Reason For Visit: AFIB RVR, FLU A Discharge Diagnosis: Flu A, Afib RVR Activity: Resume your previous activity Non-emergency contact: Primary Care Provider and Segregator Call non-emergency contact if: you have any medication questions and your symptoms worsen Follow-up/Referrals: Reilly Yun [Primary Care Provider] - Gonzalo Chew MD [Physician] - Diet: Regular Addtl Attending Provider Instructions: You were seen in the hospital for influenza A and new onset A-fib with rapid ventricular response. You tested positive for flu a and were placed on tamiflu during admission. You have been discharged to complete a 5 day course of tamiflu 75mg twice daily. Your influenza A likely precipitated atrial fibrillation. Based on history it is unclear whether you have been in A-fib prior to this, many patients go in and out of A-fib and a normal (sinus) rhythm. Atrial fibrillation places you at risk of forming a blood clot and causing a stroke known as a cardioembolic stroke. You have been prescribed a blood thinner, Eliquis, to protect you from strokes related to A-fib. Please take Eliquis 5 mg by mouth twice daily. While on a blood thinner you are at increased risk of bleeding. A small cut should have firm direct pressure applied for 10 minutes without checking the wound. A wound that does not stop, or a moderate or large wound may require medical attention. If you have any bloody bowel movements, black bowel movements, or progressive abdominal plain please seek medical reevaluation. You have been started on a blood pressure medication, metoprolol, which both can suppress A-fib/rate control A-fib and help with blood pressure. As your blood pressure was the low end of normal while on metoprolol alone your losartan has been held. Please do not resume losartan unless instructed to do so by your primary care physician or circle edger. You have had GI bleeding in the past, and as this is your first episode of A-fib which may have been provoked by a known cause (influenza A), you have been set up with a 30-day Holter monitor to quantify your overall A-fib burden. Follow- up is being scheduled for you with [facility] cardiology to review the results of this, and best determine your rate control and anticoagulation recommendations in the future based on these results. If you develop any new or worsening symptoms including fever, chills, sweats, chest pain, chest pressure, difficulty breathing, uncontrolled nausea/vomiting, rash, wheezing, passing out or nearly passing out, bleeding, black/bloody bowel movements, or other new or concerning symptoms please call your primary care physician, or call 911 for re-evaluation in the emergency department if you are very concerned. Pending Studies at Discharge: No Stand-Alone Forms: My [facility], Smoking Cessation Medications and DC Order Prescriptions: New levalbuterol HCl 1.25 mg/3 mL solution for nebulization 1.25 mg inhalation Q6H PRN (Reason: shortness of breath or wheezing) Qty: 75 1RF oseltamivir [Tamiflu] 75 mg Capsule 75 mg PO BID 4 Days Qty: 8 0RF Eliquis 5 mg Tablet 5 mg PO BID 30 Days Qty: 60 2RF metoprolol tartrate 25 mg Tablet 12.5 mg PO BID 30 Days Qty: 30 0RF levalbuterol tartrate 45 mcg/actuation HFA aerosol inhaler 1 inh inhalation Q6H PRN (Reason: shortness of breath) Qty: 15 0RF benzonatate 100 mg capsule 100 mg PO TID PRN (Reason: cough) Qty: 30 2RF Continued pantoprazole [Protonix] 40 mg tablet,delayed release (DR/EC) 40 mg PO DAILY Qty: 90 3RF Breo Ellipta 200-25 mcg/dose blister with device 1 inh INHALATION QAM Qty: 3 3RF Rx Instructions: WITH A RINSE OF MOUTH AFTERWARDS. loratadine 10 mg capsule 10 mg PO QAM triamcinolone acetonide [Nasacort] 55 mcg aerosol,spray 1 spray intranasal QAM Rx Instructions: administer into each nostril pyridoxine (vitamin B6) 500 mg Tablet 500 mg PO HS docusate sodium [Colace] 100 mg Capsule 100 mg PO HS valacyclovir 1 gram tablet 2 mg PO DIRECTED PRN (Reason: Cold Sores) Rx Instructions: Take 2 tabs at onset & 2 tabs 12 hr later hydrocortisone 2.5 % cream 1 applic TOPICAL DAILY PRN (Reason: hemmroid) vitamin E 268 mg (400 unit) Capsule 268 mg PO QAM ondansetron 4 mg tablet,disintegrating 4 mg PO Q6H PRN (Reason: nausea and vomiting) Qty: 10 0RF hydrocortisone acetate [Anusol-HC] 25 mg suppository 25 mg IA HS PRN (Reason: hemorrhoids) Qty: 12 0RF cholecalciferol (vitamin D3) [Vitamin D3] 25 mcg (1,000 unit) Capsule 25 mcg PO DAILY montelukast 10 mg tablet 10 mg PO DAILY Rx Instructions: TAKE 1 TABLET DAILY epinephrine 0.3 mg/0.3 mL auto-injector 0.3 mg IM DIRECTED PRN (Reason: anaphylaxis) Xolair 150 mg/mL syringe 150 mg subcut MONTHLY Rx Instructions: TAKES THE 3RD WEEK OF THE MONTH. INJECT 150 mg subcut EVERY 4 WEEKS APPROVED GOOD 08/05/23-02/04/24 [facility] [id number] Held ipratropium-albuterol 0.5 mg-3 mg(2.5 mg base)/3 mL solution for nebulization 3 ml INH QID PRN (Reason: Shortness Of Breath Or Wheezing) 90 Days Qty: 360 0RF Hold Instructions: Resume on 09/18/23. losartan 50 mg tablet 50 mg PO DAILY Qty: 90 3RF Hold Instructions: Resume on 09/18/23. albuterol sulfate 90 mcg/actuation HFA aerosol inhaler 2 puff Inhalation QID PRN (Reason: Wheezing) Qty: 18 5RF Hold Instructions: Resume on 09/18/23. Discharge Orders: Discharge Order (Routine); Ordered 08/11/23 Ordered By: Rodney Valle Admission Data Admit Date/Time: 08/10/23 15:34 Attending Provider: Rodney Valle Admit Provider: Rodney Valle Primary Care Provider: Reilly Yun Coding Level of Care Code 99338 INP/OBS DISCH >30 MIN Diagnoses New onset a-fib I48.91 Asthma J45.909 Asthma complication type: unspecified Asthma persistence: unspecified Asthma severity: moderate Influenza A J10.1 Cora-Cage tear K22.6 Vasovagal episode R55 Vertebral artery stenosis I65.09 Hypertension I10
--- OUTSIDE RECORDS SUMMARY | 2023-08-11 11:57 | External Medical Summary | Continuity of Care Document ---
Author Name Unknown Organization [place] [id number] [facility] [address] [place] [address] [phone] Care Team Providers Care Hospital Orderly Name Role Phone Reilly Yun Primary Care Physician [phone] Encounter [facility] [phone] Date(s): 08/08/23 - 08/08/23 [facility] 0 [facility] 207 [facility] [address] [address] [phone] Encounter Diagnosis Well adult exam(Discharge Diagnosis) - 08/08/23 High blood pressure(Discharge Diagnosis) - 08/08/23 Fatty liver(Discharge Diagnosis) - 08/08/23 Asthma(Discharge Diagnosis) - 08/08/23 Body mass index [BMI] 27.0-27.9, adult(Discharge Diagnosis) - 08/08/23 Hearing loss(Discharge Diagnosis) - 08/08/23 Cora-Cage tear(Discharge Diagnosis) - 08/08/23 Hand pain(Discharge Diagnosis) - 08/08/23 Discharge Disposition: Home or Self Care Attending Physician: MD Whitehead Dongsheng Referring Physician: MD Whitehead Dongsheng Allergies, Adverse Reactions, Alerts Substance Reaction Severity Status erythromycin GI upset Active Zithromax diarrhea Active Percocet 7.5/325 Tunnel vision.. Active Augmentin diarrhea Active Septra DS diarrhea & upset stomach Act hi Adhesive bandage skin irritation Active Grass sneezing Active Mold sneezing Active Pollen sneezing Active Ragweed sneezing Active Assessment and Plan Extracted from: Title:Office Visit Note Author:MD Whitehead Dongsh eng Date:08/08/23 1.Well adult exam Advised to be familiar with and double check on insurance coverage and benefits x Lipid Screening UTD: Declined: Ordered: x Diabetes Screening UTD: Declined: Ordered: x HIV screening Hepatitis C screening HepatitisBscreening Other STI Screening: UTD:x Declined: Ordered: UTD:x Declined: Ordered: UTD:x Declined: Ordered: Discussed Offered Declined Ordered PSA Shared decision making: x h/o BRCA: Y N Finasteride/Proscar/Propecia or Avodart/dutasteride: Y N FHx of prostate CA: Y N U Sx: Y x N Pt elected to test: Y x N UTD: Follow up Urology: Colorectal Cancer Screening: Colonoscopy: No FHx of colon CA: UTD: x Ordered: Declined: Cologuard: UTD: Ordered: Declined: Stool FIT yearly: UTD: Ordered: Declined: Smoking assessment/screening/counseling >20 pack year and > 50-80 yo Never smoked: Yes: No: Recommended LDCT: Yes: Ordered: Declined: Abdominal Aortic Aneurysm Screening 65 -75yo male FHx positive for AAA UTD: Never smoked:x <100 cig: Had a abd CT: Ordered: Declined: Osteoporosis Screenin. Men > 70 and older: 2. h/o fracture after 50 3. With risk factors: RA, Prednisone>5mg daily >3 mos etc UTD: Declined: Ordered: IMMUNIZATIONS: COVID: UTD: Recommended to self-schedule: Declined: Td/Tdap: UTD: Declined: Rx sent in: Recommended: HPV up to 26 vs 45yo UTD: Declined: Advised to check with insurance: Rx sent: Release record: Recommended: Hepatitis B Discussed.: UTD:x he'll double check with pharm Immune: Recommended testing: Labs ordered: Declined: Rx sent: Recommended: Pneumovax 23 Prevnar 20 >65 Or >19 with: Non-immunocompromising conditions: Chronic heart disease (1), chronic lung disease (2), diabetes mellitus, chronic liver disease, cirrhosis, cigarette smoking, alcoholism, cochlear implant, cerebrospinal fluid (CSF) leak Immunocompromising conditions: Sickle cell disease, other hemoglobinopathy, congenital or acquired asplenia, congenital or acquired immune deficiency (3) , HIV, chronic renal failure, nephrotic syndrome, leukemia, lymphoma, multiple myeloma, generalized malignancy, Hodgkin's disease, solid organ transplant, iatrogenic immunosuppression (4) 1. Chronic heart disease includes congestive heart failure and cardiomyopathies. 2. Chronic lung disease includes chronic obstructive pulmonary disease, emphysema, and asthma. 3. Congenital or acquired immunodeficiency includes B- (humoral) or T-lymphocyte deficiency, complement deficiencies (particularly C1, C2, C3, and C4 deficiencies), and phagocytic disorders (excluding chronic granulomatous disease). 4. Iatrogenic immunosuppression includes diseases requiring treatment with immunosuppressive drugs, including long-term systemic corticosteroids, and radiation therapy UTD: x Ordered: Declined: Recommended: UTD: Ordered: Declined: Recommended: Shingrix >50: 0 and 2-6 months >19: immunocompromised: 0 and 1-2 months UTD: x Rx sent: Declined: Recommended: In progress: Influenza: RSV UTD:x Ordered: Declined: Recommended: UTD:x Ordered: Rx sent: Declined: Recommended: Counseling: discussed routine dental [id number], eye [id number], exercise, healthy diet, gun safety/storage, sexual health/safe sex, safe driving/seatbelt, sunscreen in summer,dailyvitamin D 800-1000 units a day, and screenedfor alcohol addiction. Recommendedannualphysical exam. Discussedself-skinandtesticular exam and let me know if there is anything new or change Other issues: see separate note/documentation below 2.High blood pressure STATUS: Chronic stable: x Chronic uncontrolled: Acute uncomplicated: Acute illness with systemic symptoms: Undiagnosed new problems with uncertain prognosis: Chronic illnesses with exacerbation, progression, or side effects of treatment: 1 acute complicated injury: DATA: Review of prior external note(s) from each unique source: Review of the result(s) of each unique test: x Ordering of each unique test: x Assessment requiring independent historian(s): GOAL: bp<140/90 PLAN: continue med. labs ordered. DASH and exercise. 3.Fatty liver STATUS: Chronic stable: x Chronic uncontrolled: Acute uncomplicated: Acute illness with systemic symptoms: Undiagnosed new problems with uncertain prognosis: Chronic illnesses with exacerbation, progression, or side effects of treatment: 1 acute complicated injury: DATA: Review of prior external note(s) from each unique source: Review of the result(s) of each unique test: Ordering of each unique test: x Assessment requiring independent historian(s): GOAL: Resolution PLAN: on Ryan. hep A/B UTD. wt loss. avoid alcohol and other liver toxins.f/u GI; 4.Asthma STATUS: Chronic stable: x Chronic uncontrolled: Acute uncomplicated: Acute illness with systemic symptoms: Undiagnosed new problems with uncertain prognosis: Chronic illnesses with exacerbation, progression, or side effects of treatment: 1 acute complicated injury: DATA: Review of prior external note(s) from each unique source: Review of the result(s) of each unique test: Ordering of each unique test: Assessment requiring independent historian(s): GOAL: Maintain stability PLAN: on ICS, prn albuterol nebs, and singulair. 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 on med. will callfor nausea 7.Hand pain STATUS: Chronic stable: x Chronic uncontrolled: Acute uncomplicated: Acute illness with systemic symptoms: Undiagnosed new problems with uncertain prognosis: Chronic illnesses with exacerbation, progression, or side effects of treatment: 1 acute complicated injury: DATA: Review of prior external note(s) from each unique source: Review of the result(s) of each unique test: Ordering of each unique test: Assessment requiring independent historian(s): GOAL: Resolution PLAN: f/u ortho. start vit D call prn. f/u 6 mos Time spent: Pre-visit planning/chart review: 4 minutes Runp-us-ryzo visit:36minutes Post-visit documentation: minutes Care coordination: minutes Time spent on disease management/counseling in addition to CPE/AWV/WCC:30 minutes Total visit time:40minutes Immunizations Given and Recorded Vaccine Date Status Refusal Reason influenza virus vaccine, inactivated 07/06/22 Jian rded influenza virus vaccine, inactivated 06/23/19 Give n influenza virus vaccine, inactivated 10/29/18 Give n influenza virus vaccine, inactivated 06/18/16 Give n influenza virus vaccine, inactivated 05/05/13 Give n influenza virus vaccine, inactivated 07/04/12 Give n influenza virus vaccine, inactivated 09/29/11 Give n hepatitis A-hepatitis B vaccine 12/19/21 Recorded SARS-CoV-2 (COVID-19) mRNA BNT-162b2 vax 1 05/25/21 Recorded SARS-CoV-2 (COVID-19) mRNA BNT-162b2 vax 2 10/31/20 Recorded SARS-CoV-2 (COVID-19) mRNA BNT-162b2 vax 3 09/26/20 Recorded zoster vaccine, inactivated 4 04/15/20 Recorded zoster vaccine, inactivated 10/29/19 Recorded pneumococcal 23-valent vaccine 07/04/12 Given tetanus/diphtheria/pertuss, acel (Tdap) 07/04/12 G iven tetanus toxoids-diphtheria, Td (Adult) 11/06/04 Re corded measles/mumps/rubella virus vaccine 12/08/99 Recor ded 1Result Comment: 2021-07-11: Historical information-source unspecified 2Result Comment: 2021-07-11: Historical information-source unspecified 3Result Comment: 2021-07-11: Historical information-source unspecified 4Result Comment: 2020-04-18: Historical information-source unspecified Medications albuterol 0.083% for nebulization Start: 07/11/21 15:13:00 EST, 3 mL, inhaled, q6h, PRN: as needed for wheezing Start Date: 07/11/21 Status: Ordered albuterol CFC free 90 mcg/inh MDI Start: 12/01/18 14:45:00 EDT, 2 puff, inhaled, qid, Disp# 1 each, Refills: 0, PRN: as needed for wheezing, Pharmacy: [facility] [address] Start Date: 12/01/18 Status: Ordered Breo Ellipta 200 mcg-25 mcg/inh inhalation powder inhalation 1 puff by mouth once daily Start Date: 12/24/18 Status: Ordered Claritin 24 Hour Allergy 10 mg oral tablet Start: 09/10/19 9:38:00 EST, 1 tab, PO, Daily Start Date: 09/10/19 Status: Ordered CSAHB OTIC POWDER CAPS Start: 01/23/22 10:06:00 EDT, CSAHB OTIC POWDER CAPS Start Date: 01/23/22 Status: Ordered inhaler spacer Start: 05/29/18 13:46:00 EDT, See Instructions, Disp# 1 each, use with albuterol, Pharmacy: [facility] Start Date: 05/29/18 Status: Ordered losartan 50 mg oral tablet Start: 04/25/22 13:48:00 EDT, 1 tab, PO, Daily Start Date: 04/25/22 Status: Ordered montelukast 10 mg oral tablet Start: 12/24/18 8:45:00 EDT, 1 tab, PO, qPM Start Date: 12/24/18 Status: Ordered Protonix 40 mg oral delayed release tablet Start: 04/18/23 16:16:00 EDT, 1 tab, PO, Daily, Disp# 90 tab, Refills: 1, Pharmacy: [facility] Start Date: 04/18/23 Stop Date: 10/15/23 Status: Ordered Twinrix Preservative-Free 720 units-20 mcg/mL intramuscular suspension Start: 03/01/23 8:54:00 EDT, 1 mL, IM, ONCE, Disp# 1 mL, Refills: 1, Note to Pharmacy: vaccinate per CDC recommendations, [id number] Start Date: 03/01/23 Status: Ordered valACYclovir 1 g oral tablet Start: 07/22/23 15:52:00 EST, See Instructions, Disp# 4 tab, Refills: 2, take 2 tablets by mouth and repeat in 12 hours, Pharmacy: [id number] Start Date: 07/22/23 Status: Ordered Vitamin B6 50 mg oral tablet Start: 03/11/20 12:10:00 EDT, 1 tab, PO, Daily, Disp# 30 tab, Refills: 1, other Start Date: 03/11/20 Status: Ordered Vitamin D3 1000 intl units (25 mcg) oral capsule Start: 09/10/19 9:57:00 EST, 1 cap, PO, Daily, Disp# 30 cap, other Start Date: 09/10/19 Status: Ordered vitamin E 400 intl units oral capsule Start: 11/05/22 13:20:00 EDT, 1 cap, PO, Daily Start Date: 11/05/22 Status: Ordered Xolair Start: 11/05/22 13:20:00 EDT, 300 mg =, subQ, [id number] Start Date: 11/05/22 Status: Ordered Mental Status 08/08/23 Barriers to Learning one year None evide nt Mandatory Health Literacy Documentation Yes Health Literacy Communication Barriers N ever Primary Language Nepali Problem List Condition Confirmation Course Effective Dates Status Health St atus Informant Asthma Confirmed Active Asthma Confirmed Active Bleeding hemorrhoids Confirmed Active Diastasis recti Confirmed Active External hemorrhoids Confirmed Active Fatty liver Confirmed Active Gallstones Confirmed Active History of repair of hiatal hernia 1 Confirmed Active Hearing loss in left ear 2 Confirmed Active High blood pressure Confirmed Active History of basal cell carcinoma Confirmed Active History of MRSA infection Confirmed Active History of pericarditis Confirmed Active Personal history of colonic polyps Confirmed Active Hx of Achilles tendon repair 3 Confirmed 09/19/02 Active Internal hemorrhoids Confirmed Active Right knee pain Confirmed Active Elevated LFTs Confirmed Active Low HDL (under 40) 4 Confirmed Active 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 LVH (left ventricular hypertrophy) 5 Confirmed 05/30/01 Active Cora-Cage syndrome Confirmed Active Cora-Cage tear Confirmed Active Pain of left thumb Confirmed Active Left knee pain Confirmed Active Recurrent HSV (herpes simplex virus) 6, 7 Confirmed Active Sacroiliac pain Confirmed Active Scar tissue Confirmed Active Schatzki's ring 8 Confirmed Active Seasonal allergies Confirmed Active Calculus of distal right ureter Confirmed Active Weight disorder Confirmed Active 1x 3 280 % hearing 3left surgically repaired 435 5mild 6Lip & nose 7Type 1 8dilated Diagnosis Diagnosis Type Effective Dates Health Status Cl inical Service Informant Well adult exam Discharge Diagnosis 08/08/23 Asthma Discharge Diagnosis 08/08/23 Body mass index [BMI] 27.0-27.9, adult Discharge Diagnosis 08/08/23 Non-Specified Cora-Cage tear Discharge Diagnosis 08/08/23 High blood pressure Discharge Diagnosis 08/08/23 Fatty liver Discharge Diagnosis 08/08/23 Hearing loss Discharge Diagnosis 08/08/23 Hand pain Discharge Diagnosis 08/08/23 Procedures Procedure Date Related Diagnosis Body Site Status Colonoscopy 1 10/30/22 Completed Ultrasound--RUQ 2 09/18/22 Complet ed Chest X-ray 3 04/08/[address] of abdomen and pelvis 4 04/08/22 Completed Polysomnogram 5 01/20/[address] of chest without contrast 6 07/03/18 Completed Adult hearing test 7 10/15/17 Comp leted X-ray of orbits 8 06/11/17 Complet ed Ultrasound scan of abdominal vessels 9 06/04/16 Completed Excision 09/13/15 Completed Punch biopsy of skin 09/01/15 Comp leted Ultrasound Scrotum 10 01/06/14 Com pleted Colonoscopy 11, 12 07/18/12 Comple galdino Echocardiogram 13 2005 Complet ed repair of paraesophageal hernia/gastropexy 14, 15 08/03/05 Complet ed left achilles repair 2002 Comp leted Schatzki ring dilation 16 1999 Completed gastropexy 17 11/01/98 Completed Extraction of wisdom tooth 18 1980 Completed left mastoidectomy 1976 Com pleted appendectomy 1971 Completed Tonsillectomy and adenoidectomy 1965 Completed hiatal hernia repairs x 3 Completed 1COLO to cecum, 2 mm SF polyp CF, 2 mm AC polyp CF, diverticulosis, hemorrhoids 21) The cholelithiasis seen on the study from 04/08/22 are not identified on today's exam. 2) Hepatic steatosis 3) No biliary ductal dilation. 3impression: No change in the low lung volumes mild cardiomegaly and mild chronic interstitial thickening 4Impression: 1. No Bowel wall thickening or obstruction 2. Colonic diverticulosis. No evidence or acute diverticulitis 3. A 6mm stone within the bladder. This appears to be just beyond the right ureterovesical junction. No ureteral tones. No hydronephrosis 4. Cholelithiasis. No gallbladder wall thickening 5. Additioal findings as described: see scanned report 5Obstructive sleep apnea - mild. 63 mm indeterminate pulmonary nodue within the right lower lobe. Small to moderate hiatus hernia either posteroperative changes at the gastroesophageal junction. Cholelithasis. 7albrecht audiology - pt is a candidate for amplifiation on the left ear 8stable posoperative and sclerotic changes of the left middle and extdernal ear complex as well as left mastoid complex as well as left mastoid complex 9possible fat containing ventral hernia. A CT could be obtrained for further evaluation. No gallstones or biliary ductal dilatation. 10Unremarkable Small right hydrocele 11repeat in 10 yrs 12diverticulosis 1310/06 & 07/24 14at [facility] 153/99 & 07/23 1603/2000 17at [facility], laparoscopically 18times [address]Dr[address] Kashif Vital Signs Most recent to oldest [Reference Range]: 1 Height 174.6 cm (08/08/23 9:30 AM) Patient Weight 82.6 kg (08/08/23 9:30 AM) Body Mass Index 27.1 kg/m2 (08/08/23 9:30 AM) Temperature [36.5-37.9 DegC] 36.6 DegC (08/08/23 9:30 AM) Respiratory Rate 18 br/min (08/08/23 9:30 AM) Blood Pressure 120/84mmHg (08/08/23 9:30 AM) BP Location # 1 Left Arm (08/08/23 9:30 AM) Social History Social History Type Response Smoking Status Never smoked cigaret chaz Sex Male FCM Outpt Note * MD Ventura, Salima: PERFORM Event Display: [facility]CM Outpt Note Authored Date: Chief Complaint Here for CPE. No new health concerns. History of Present Illness HTN: on med. home bp has been good. no dizzy. asthma: stable. on meds. sneezes in Am at waking up. nocturia: mild. L hand pain: x 6 mos. started after swinging golf club and hit a rock. saw ortho. Review of Systems No fever/chills. No headache. No otherrespiratory symptoms. No chest pain/shortness of breath. Nonausea/vomiting. No abdominal pain. No change with bowels. No urinary symptoms. No rash. No bleeding.No joint pain. No anxiety/depression. Other systems reviewed and are neg. Physical Exam Vitals & Measurements T:36.6C RR:18 BP:120/84 SpO2:96% HT:174.6cm WT:82.6kg WT:82.600kg(Dosing) BMI:27.1 PHQ2 Data(Data Documented on:08/08/2023 09:25) Emotional health assessment NEGATIVE General: No acute distress. Nontoxic. Head:Normocephalic, Atraumatic. Eyes:Pupils are equal, round Normal conjunctiva. Ears: Tympanic membranes are clear,wax on R Throat:No pharyngeal erythema, no abnormal masses or lesions. Neck:Supple, Non-tender, No thyromegaly, No jugular venous distention, No lymphadenopathy Respiratory:Lungs are clear to auscultation, Respirations non-labored, Breath sounds equal JAMES. Cardiovascular:Normal rate, Regular rhythm, No murmur, Rubs, gallops. Gastrointestinal:Soft, Non-tender, Non-distended, Normal bowel sounds. Genitourinary: discussed and offered KALYAN, hernia and testes exam - declined Musculoskeletal:no pitting edema Integumentary:No rashes. Exposed skin - no abnormal lesions. Offered full skin exam Neurologic:Alert, Oriented, No focal deficits. Psychiatric:Cooperative, Appropriate mood & affect. Assessment/Plan 1.Well adult exam Advised to be familiar with and double check on insurance coverage and benefits x Lipid Screening UTD: Declined: Ordered: x Diabetes Screening UTD: Declined: Ordered: x HIV screening Hepatitis C screening HepatitisBscreening Other STI Screening: UTD:x Declined: Ordered: UTD:x Declined: Ordered: UTD:x Declined: Ordered: Discussed Offered Declined Ordered PSA Shared decision making: x h/o BRCA: Y N Finasteride/Proscar/Propecia or Avodart/dutasteride: Y N FHx of prostate CA: Y N U Sx: Y x N Pt elected to test: Y x N UTD: Follow up Urology: Colorectal Cancer Screening: Colonoscopy: No FHx of colon CA: UTD: x Ordered: Declined: Cologuard: UTD: Ordered: Declined: Stool FIT yearly: UTD: Ordered: Declined: Smoking assessment/screening/counseling >20 pack year and > 50-80 yo Never smoked: Yes: No: Recommended LDCT: Yes: Ordered: Declined: Abdominal Aortic Aneurysm Screening 65 -75yo male FHx positive for AAA UTD: Never smoked:x <100 cig: Had a abd CT: Ordered: Declined: Osteoporosis Screenin. Men > 70 and older: 2. h/o fracture after 50 3. With risk factors: RA, Prednisone>5mg daily >3 mos etc UTD: Declined: Ordered: IMMUNIZATIONS: COVID: UTD: Recommended to self-schedule: Declined: Td/Tdap: UTD: Declined: Rx sent in: Recommended: HPV up to 26 vs 45yo UTD: Declined: Advised to check with insurance: Rx sent: Release record: Recommended: Hepatitis B Discussed.: UTD:x he'll double check with pharm Immune: Recommended testing: Labs ordered: Declined: Rx sent: Recommended: Pneumovax 23 Prevnar 20 >65 Or >19 with: Non-immunocompromising conditions: Chronic heart disease (1), chronic lung disease (2), diabetes mellitus, chronic liver disease, cirrhosis, cigarette smoking, alcoholism, cochlear implant, cerebrospinal fluid (CSF) leak Immunocompromising conditions: Sickle cell disease, other hemoglobinopathy, congenital or acquired asplenia, congenital or acquired immune deficiency (3) , HIV, chronic renal failure, nephrotic syndrome, leukemia, lymphoma, multiple myeloma, generalized malignancy, Hodgkin's disease, solid organ transplant, iatrogenic immunosuppression (4) 1. Chronic heart disease includes congestive heart failure and cardiomyopathies. 2. Chronic lung disease includes chronic obstructive pulmonary disease, emphysema, and asthma. 3. Congenital or acquired immunodeficiency includes B- (humoral) or T-lymphocyte deficiency, complement deficiencies (particularly C1, C2, C3, and C4 deficiencies), and phagocytic disorders (excluding chronic granulomatous disease). 4. Iatrogenic immunosuppression includes diseases requiring treatment with immunosuppressive drugs,including long-term systemic corticosteroids, and radiation therapy UTD: x Ordered: Declined: Recommended: UTD: Ordered: Declined: Recommended: Shingrix >50: 0 and 2-6 months >19: immunocompromised: 0 and 1-2 months UTD: x Rx sent: Declined: Recommended: In progress: Influenza: RSV UTD:x Ordered: Declined: Recommended: UTD:x Ordered: Rx sent: Declined: Recommended: Counseling: discussed routine dental [id number], eye [id number], exercise, healthy diet, gun safety/storage, sexual health/safe sex, safe driving/seatbelt, sunscreen in summer,dailyvitamin D 800-1000 units a day, and screenedfor alcohol addiction. Recommendedannualphysical exam. Discussedself- skinandtesticular exam and let me know if there is anything new or change Other issues: see separate note/documentation below 2.High blood pressure STATUS: Chronic stable: x Chronic uncontrolled: Acute uncomplicated: Acute illness with systemic symptoms: Undiagnosed new problems with uncertain prognosis: Chronic illnesses with exacerbation, progression, or side effects of treatment: 1 acute complicated injury: DATA: Review of prior external note(s) from each unique source: Review of the result(s) of each unique test: x Ordering of each unique test: x Assessment requiring independent historian(s): GOAL: bp<140/90 PLAN: continue med. labs ordered. DASH and exercise. 3.Fatty liver STATUS: Chronic stable: x Chronic uncontrolled: Acute uncomplicated: Acute illness with systemic symptoms: Undiagnosed new problems with uncertain prognosis: Chronic illnesses with exacerbation, progression, or side effects of treatment: 1 acute complicated injury: DATA: Review of prior external note(s) from each unique source: Review of the result(s) of each unique test: Ordering of each unique test: x Assessment requiring independent historian(s): GOAL: Resolution PLAN: on Ryan. hep A/B UTD. wt loss. avoid alcohol and other liver toxins.f/u GI; 4.Asthma STATUS: Chronic stable: x Chronic uncontrolled: Acute uncomplicated: Acute illness with systemic symptoms: Undiagnosed new problems with uncertain prognosis: Chronic illnesses with exacerbation, progression, or side effects of treatment: 1 acute complicated injury: DATA: Review of prior external note(s) from each unique source: Review of the result(s) of each unique test: Ordering of each unique test: Assessment requiring independent historian(s): GOAL: Maintain stability PLAN: on ICS, prn albuterol nebs, and singulair. 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 on med. will callfor nausea 7.Hand pain STATUS: Chronic stable: x Chronic uncontrolled: Acute uncomplicated: Acute illness with systemic symptoms: Undiagnosed new problems with uncertain prognosis: Chronic illnesses with exacerbation, progression, or side effects of treatment: 1 acute complicated injury: DATA: Review of prior external note(s) from each unique source: Review of the result(s) of each unique test: Ordering of each unique test: Assessment requiring independent historian(s): GOAL: Resolution PLAN: f/u ortho. start vit D call prn. f/u 6 mos Time spent: Pre-visit planning/chart review: 4 minutes [id number] visit:36minutes Post-visit documentation: minutes Care coordination: minutes Time spent on disease management/counseling in addition to CPE/AWV/WCC:30 minutes Total visit time:40minutes Problem List/Past Medical History Ongoing Asthma Asthma Bleeding hemorrhoids Calculus of distal right ureter Degenerative joint disease (DJD) of lumbar spine Diastasis recti Elevated LFTs External hemorrhoids Fatty liver Gallstones Hearing loss in left ear High blood pressure History of basal cell carcinoma History of MRSA infection History of pericarditis History of repair of hiatal hernia Hx of Achilles tendon repair Internal hemorrhoids Left knee pain Low HDL (under 40) LVH (left ventricular hypertrophy) Cora-Cage syndrome Cora-Cage tear Pain of left thumb Personal history of colonic polyps Recurrent HSV (herpes simplex virus) Right knee pain Sacroiliac pain Scar tissue Schatzki's ring Seasonal allergies Weight disorder Historical Cough GERD H/O mastoidectomy Hiatal hernia PERICARDITIS Wedge compression fracture of thoracic vertebra Procedure/Surgical History Colonoscopy (10/30/2022)Ultrasound--RUQ (09/18/2022)CT of abdomen and pelvis (04/08/2022)Chest X-ray (04/08/2022)Polysomnogram (01/20/2019)Low dose CT of chest without contrast (07/03/2018)Adult hearing test (10/15/2017)X-ray of orbits (06/11/2017)Ultrasound scan of abdominal vessels (06/04/2016)Excision (09/13/2015)Punch biopsy of skin (09/01/2015)Ultrasound Scrotum (01/06/2014)Colonoscopy (07/18/2012)Echocardiogram (2005)repair of paraesophageal her jose/gastropexy (08/03/2005)left achilles repair (2002)Schatzki ring dilation (1999)gastropexy (11/01/1998)Extraction of wisdom tooth (1980)left mastoidectomy (1976)appendectomy (1970)Tonsillectomy and adenoidectomy (1964)hiatal hernia repairs x 3 Medications albuterol(albuterol 0.083% for nebulization), 2.5 mg= 3 mL, inhaled, q6h, PRN albuterol(albuterol CFC free 90 mcg/inh MDI), 2 puff, inhaled, qid, PRN cholecalciferol(Vitamin D3 1000 intl units (25 mcg) oral capsule), 1000 Int_Unit= 1 cap, PO, Daily fluticasone-vilanterol(Breo Ellipta 200 mcg-25 mcg/inh inhalation powder) hepatitis A-hepatitis B vaccine(Twinrix Preservative-Free 720 units-20 mcg/mL intramuscular suspension), 1 mL, IM, ONCE, 1 refills inhalation accessory(inhaler spacer), See Instructions loratadine(Claritin 24 Hour Allergy 10 mg oral tablet), 10 mg= 1 tab, PO, Daily losartan(losartan 50 mg oral tablet), 50 mg= 1 tab, PO, Daily montelukast(montelukast 10 mg oral tablet), 10 mg= 1 tab, PO, qPM omalizumab(Xolair), 300 mg, subQ, [id number] pantoprazole(Protonix 40 mg oral delayed release tablet), 40 mg= 1 tab, PO, Daily, 1 refills pyridoxine(Vitamin B6 50 mg oral tablet), 50 mg= 1 tab, PO, Daily, 1 refills unlisted medication(CSAHB OTIC POWDER CAPS) valACYclovir(valACYclovir 1 g oral tablet), See Instructions, 2 refills vitamin E(vitamin E 400 intl units oral capsule), 400 Int_Unit= 1 cap, PO, Daily Allergies Adhesive bandageskin irritation Augmentindiarrhea Grasssneezing Moldsneezing Percocet 7.5/325Tunnel vision.. Pollensneezing Ragweedsneezing Septra DSdiarrhea & upset stomach Zithromaxdiarrhea erythromycinGI upset Social History Smoking Status Never smoked cigarettes Alcohol - No Risk Use:Current Type:Beer, Wine Frequency:1-2 times per week Average drinks per episode in last year:1 Employment/School - No Risk Status:Employed Description:[employer] Exercise Duration (average number of minutes):120 Times per week:Daily Exercise type:Walking - Comments: walks Tobacco - Denies Tobacco Use Family History Arthritis: Mother. BPH: Father. Bladder dysfunction: Daughter. CAD: MGF. CVA (cerebral vascular accident): MGF. DVT (deep venous thrombosis): Father. Diabetes: PGF. Heart attack: PGF (Dx at 56 years). High Blood Pressure: Father. Left ventricle abnormality: Son. Lung cancer..: Father. MVP (mitral valve prolapse): Son. Myelodysplasia.: Mother. PAC (premature atrial contraction): Son. Skin cancer: Mother and Father. Smoker.: Father. Stroke: Father (Dx at 66 years) and MGF. Health Status Family Member(s) Brother: History is negative Brother: History is negative Son: History is negative Family Member(s) Relationship: Father, Age: 67 Years, Cause: lung CA, ex-smoker, factory exposures to heavy metals Immunizations Vaccine Date Status influenza virus vaccine, inactivated 07/06/2022 Recorded hepatitis A-hepatitis B vaccine 12/19/2021 Recorded SARS-CoV-2 (COVID-19) mRNA BNT-162b2 vax 05/25/2021 Recorded Comments : 2021-07-11: Historical information-source unspecified SARS-CoV-2 (COVID-19) mRNA BNT-162b2 vax 10/31/2020 Recorded Comments : 2021-07-11: Historical information-source unspecified SARS-CoV-2 (COVID-19) mRNA BNT-162b2 vax 09/26/2020 Recorded Comments : 2021-07-11: Historical information-source unspecified zoster vaccine, inactivated 04/15/2020 Recorded Comments : 2020-04-18: Historical information-source unspecified zoster vaccine, inactivated 10/29/2019 Recorded influenza virus vaccine, inactivated 06/23/2019 Given influenza virus vaccine, inactivated 06/16/2018 Given influenza virus vaccine, inactivated 06/18/2016 Given influenza virus vaccine, inactivated 05/05/2013 Given influenza virus vaccine, inactivated 07/04/2012 Given pneumococcal 23-valent vaccine 07/04/2012 Given tetanus/diphtheria/pertuss, acel (Tdap) 07/04/2012 Given influenza virus vaccine, inactivated 09/29/2011 Given tetanus toxoids-diphtheria, Td (Adult) 11/06/2004 Recorded measles/mumps/rubella virus vaccine 12/08/1999 Recorded Recommendations Health Maintenance Pending(in the next year) OverDue Adult Influenza Vaccine due02/16/23and every 1year Due Adult COVID-19 Vaccination due08/08/23Unknown Frequency Adult Social Determinants of Health Screening due08/08/23Unknown Frequency Adult Tdap/Td Vaccine due08/08/23Unknown Frequency Pneumococcal Vaccine Adults and Adolescents with Chronic Illness due08/08/23One-time only Satisfied(in the past 1 year) Satisfied Body Mass Index on08/08/23.Satisfied by VERA Camarillo Paula Electronic Signature on File Electronically Reviewed/Signed by: Salima Whitehead MD Author Signature Dt/Tm:08/08/2023 10:08 AM Department of Family Medicine DJ Patient Care team information Care Team Personnel Name: MD Javi, Ovidio [place] Position: Physician - Family Med Member Role: Lifetime Relationship Address: Address: [address] [place] [address] [place] Name: MD Court, Reilly Vinson Position: Physician - Family Med Member Role: Lifetime Relationship Address: Address: [address] [place] [address] [place] Name: SETH Iniguez Leslie L Position: MOA Schedule II Member Role: HIS Lifetime Name: Esa Yu MD, Scotty Position: Resident Member Role: Lifetime Relationship Address: Address: [address] [place] [address] [place] Care Team Related Persons Name: FOSTER ALCARAZ Address: home [address] [place] [phone]
--- NOTE | 2023-08-11 20:43 | Electrocardiogram Report ---
Test Reason : Blood Pressure : / mmHG Vent. Rate : 167 BPM Atrial Rate : 000 BPM P-R Int : 000 ms QRS Dur : 086 ms QT Int : 266 ms P-R-T Axes : 000 006 -17 degrees QTc Int : 443 ms Atrial fibrillation with rapid ventricular response Nonspecific ST abnormality Abnormal ECG When compared with ECG of 25-FEB-2023 09:49, HR has increased Confirmed by Luiz Lyn ([id number]) on 08/11/2023 8:43:16 PM Referred By: REFERRED SELF Confirmed By:Luiz Lyn
--- NOTE | 2023-08-11 20:46 | Electrocardiogram Report ---
Test Reason : Blood Pressure : / mmHG Vent. Rate : 124 BPM Atrial Rate : 000 BPM P-R Int : 000 ms QRS Dur : 088 ms QT Int : 312 ms P-R-T Axes : 000 186 200 degrees QTc Int : 448 ms Atrial fibrillation with rapid ventricular response Arm lead reversal Abnormal ECG When compared with ECG of 10-AUG-2023 12:42, (unconfirmed) No significant change taking into acount arm lead reversal Confirmed by Luiz Lyn ([id number]) on 08/11/2023 8:46:39 PM Referred By: REFERRED SELF Confirmed By:Luiz Lyn
--- NOTE | 2023-08-11 20:47 | Electrocardiogram Report ---
Test Reason : Blood Pressure : / mmHG Vent. Rate : 091 BPM Atrial Rate : 091 BPM P-R Int : 166 ms QRS Dur : 086 ms QT Int : 342 ms P-R-T Axes : 008 -03 -04 degrees QTc Int : 420 ms Normal sinus rhythm Normal ECG When compared with ECG of 10-AUG-2023 13:47, (unconfirmed) Sinus rhythm has replaced Atrial fibrillation QRS axis Shifted right Confirmed by Luiz Lyn ([id number]) on 08/11/2023 8:46:59 PM Referred By: REFERRED SELF Confirmed By:Luiz Lyn
== END 2023-08-11 13:42 | disposition home or self-care (01) ==
LOC: ED 12:34 → EDINP 12:34 → 2S 17:56